=== PATIENT | female | born 1945 | race Caucasian/White ===

== ENCOUNTER → 2017-01-17 | Outpatient (CLI) | payer MEDICARE, BC, OTHER ==
[~2017-01-17] VITALS: Ht 167.6 cm; Wt 51.3 kg
[~2017-01-17] MED LIST: ASPI1TAB PO; LEVO88TA3 PO; LIDOCAINE 2% INJ 100 MG/5 ML SDV (FOR ANES.) As Ordered ONE; METO-207 PO; MULT1TAB18 PO; NS 1,000 ML IV SCH; OMEP40CA2 PO; PROPOFOL 200 MG/20 ML VIAL As Ordered ONE; TYLE325C PO; VITA-193 PO; VITA500055 PO; XANA0.5T PO; ZOCO20TA PO
--- NOTE | 2017-01-17 08:17 | ROOR ---
Patient Name: Brittney Rose Procedure Date: 01/17/2017 7:56 AM Date of : 1945 Age: 71 Room: [facility] Gender: Female Note Status: Finalized Procedure: Colonoscopy to Cecum Indications: Screening for colorectal malignant neoplasm, Last colonoscopy: 2009 Providers: Gualberto Hilario MD Referring MD: Jane Liang NP Requesting Provider: Medicines: Monitored Anesthesia Care Complications: No immediate complications. Procedure: Pre-Anesthesia Assessment: - The heart rate, respiratory rate, oxygen saturations, blood pressure, adequacy of pulmonary ventilation, and response to care were monitored throughout the procedure. The Colonoscope was introduced through the anus and advanced to the cecum, identified by appendiceal orifice and ileocecal valve. The colonoscopy was performed without difficulty. The patient tolerated the procedure well. The quality of the bowel preparation was fair. Findings: The perianal and digital rectal examinations were normal. Non-bleeding internal hemorrhoids were found during retroflexion. The hemorrhoids were small and Grade I (internal hemorrhoids that do not prolapse). Scattered small and large-mouthed diverticula were found in the recto-sigmoid colon, sigmoid colon and descending colon. The exam was otherwise without abnormality on direct and retroflexion views. Impression: - Preparation of the colon was fair. - Non-bleeding internal hemorrhoids. - Diverticulosis in the recto-sigmoid colon, in the sigmoid colon and in the descending colon. - The examination was otherwise normal on direct and retroflexion views. - No specimens collected. - The exam was otherwise normal to the cecum. Recommendation: - Patient has a contact number available for emergencies. The signs and symptoms of potential delayed complications were discussed with the patient. Return to normal activities tomorrow. Written discharge instructions were provided to the patient. - High fiber diet. - Discharge patient to home. - Continue present medications. - Repeat colonoscopy is not recommended for screening purposes. - Return to referring physician. - The findings and recommendations were discussed with the patient's family. Gualberto Hilario MD Gualberto Hilario MD 01/17/2017 8:16:48 AM This report has been signed electronically. Number of Addenda: 0 Note Initiated On: 01/17/2017 7:56 AM Estimated Blood Loss: Estimated blood loss: none.
[2017-01-17 08:40] VITALS: BP 154/72
== END | disposition home or self-care (01) ==
LOC: M OPP 07:20
PROVIDERS: ATTEND Internal Medicine Gastroenterology
DX: Z12.11 Encounter for screening for malignant neoplasm of colon (principal); K64.0 First degree hemorrhoids; K57.30 Diverticulosis of large intestine without perforation or abscess without bleeding; I10 Essential (primary) hypertension; E78.5 Hyperlipidemia, unspecified; E03.9 Hypothyroidism, unspecified; R12 Heartburn; M54.2 Cervicalgia; F41.9 Anxiety disorder, unspecified; Z87.891 Personal history of nicotine dependence; Z88.8 Allergy status to other drugs, medicaments and biological substances; Z79.82 Long term (current) use of aspirin; Z79.899 Other long term (current) drug therapy; Z92.3 Personal history of irradiation
CPT/HCPCS: 99156; 99157; G0121

== ENCOUNTER → 2017-01-30 | Outpatient (REF) | payer MEDICARE, OTHER ==
[~2017-01-30] MED LIST changes: -LIDOCAINE 2% INJ 100 MG/5 ML SDV (FOR ANES.) As Ordered ONE; -NS 1,000 ML IV SCH; -PROPOFOL 200 MG/20 ML VIAL As Ordered ONE
[2017-01-30 14:08] LABS: MEAN CORPUSCULAR HEMOGLOBIN 31.4 pg (27.0-33.0); MEAN CORPUSCULAR HGB CONC 33.3 g/dl (32.0-36.5); MEAN CORPUSCULAR VOLUME 94.3 fl (80.0-96.0); RED CELL DISTRIBUTION WIDTH 12.4 % (11.5-14.5); WHITE BLOOD COUNT 5.5 K/mm3 (4.0-10.0)
[2017-01-30 15:16] LABS: ALBUMIN 4.1 GM/DL (3.2-5.2); ALBUMIN/GLOBULIN RATIO 1.37 (1.00-1.93); ALKALINE PHOSPHATASE 70 U/L (45-117); ALT/SGPT 30 U/L (12-78); ANION GAP 9 MEQ/L (8-16); AST/SGOT 33 U/L (15-37); BILIRUBIN,TOTAL 0.3 MG/DL (0.2-1.0); BLOOD UREA NITROGEN 13 MG/DL (7-18); CARBON DIOXIDE LEVEL 28 MEQ/L (21-32); CHLORIDE LEVEL 102 MEQ/L (98-107); CREATININE FOR GFR 0.61 MG/DL (0.55-1.02); FREE T4 0.93 NG/DL (0.76-1.46); GLOMERULAR FILTRATION RATE > 60.0 (>39); GLUCOSE, FASTING 56 MG/DL (83-110); MAGNESIUM LEVEL 2.1 MG/DL (1.8-2.4); POTASSIUM SERUM 4.3 MEQ/L (3.5-5.1); SODIUM LEVEL 139 MEQ/L (136-145); TOTAL PROTEIN 7.1 GM/DL (6.4-8.2)
== END ==
LOC: M SFHCPLAZ 09:31
PROVIDERS: ATTEND Nurse Practitioner Family
DX: R00.2 Palpitations (principal); I10 Essential (primary) hypertension; E03.9 Hypothyroidism, unspecified; E55.9 Vitamin D deficiency, unspecified
CPT/HCPCS: 36415; 80053; 82306; 83735; 84439; 84443; 85027; 93005; G0463

== ENCOUNTER → 2017-03-14 | Outpatient (CLI) | payer MEDICARE, BC, OTHER ==
[2017-03-14 13:40] LABS: ANION GAP 7 MEQ/L (8-16); BLOOD UREA NITROGEN 12 MG/DL (7-18); CALCIUM LEVEL 8.3 MG/DL (8.8-10.2); CARBON DIOXIDE LEVEL 29 MEQ/L (21-32); CHLORIDE LEVEL 99 MEQ/L (98-107); CREATININE FOR GFR 0.63 MG/DL (0.55-1.02); GLOMERULAR FILTRATION RATE > 60.0 (>39); GLUCOSE, FASTING 102 MG/DL (83-110); POTASSIUM SERUM 4.2 MEQ/L (3.5-5.1); SODIUM LEVEL 135 MEQ/L (136-145)
== END ==
LOC: M SMT 10:27
PROVIDERS: ATTEND Nurse Practitioner Family
DX: I10 Essential (primary) hypertension (principal)

== ENCOUNTER → 2017-07-05 | Outpatient (CLI) | payer MEDICARE, BC ==
[~2017-07-05] MED LIST changes: -METO-207 PO; +METO1TAB7 PO
--- NOTE | 2017-07-05 11:00 | REPMRS ---
Patient History The patient states she had a clinical breast exam in 07/05 Patient is postmenopausal. Family history of breast cancer in 3 maternal aunts at age 50 or over. Took estrogen for 3 years. Digital Woman Screen Mammo: July 05, 2017 - Exam #: [id number] Bilateral CC and MLO view(s) were taken. Technologist: Gabriella Myrick, Technologist Prior study comparison: June 27, 2016, digital woman screen mammo performed at [facility]. July 12, 2015, digital woman screen mammo performed at [facility] to [facility]. FINDINGS: There are scattered fibroglandular densities. There has been no change in the appearance of the mammogram from the prior studies. There is a mild amount of residual fibroglandular tissue which is fairly symmetric. There is no interval development of dominant mass, architectural distortion, or clustered microcalcification suggestive of malignancy. ASSESSMENT: BI-RADS/ACR category 1 mammogram. Negative. Recommendation Routine screening mammogram in 1 year (for women over age 40). This mammogram was interpreted with the aid of an FDA-approved computer-aided dectection system. Electronically Signed By: Dawson Plaza MD 07/05/17 1100
== END ==
LOC: M WHC 09:34
PROVIDERS: ATTEND Nurse Practitioner Family
DX: Z01.419 Encounter for gynecological examination (general) (routine) without abnormal findings (principal); Z12.31 Encounter for screening mammogram for malignant neoplasm of breast; Z78.0 Asymptomatic menopausal state; Z12.12 Encounter for screening for malignant neoplasm of rectum
CPT/HCPCS: 82270; G0101; G0202

== ENCOUNTER → 2017-08-14 | Outpatient (CLI) | payer MEDICARE, BC ==
[2017-08-14 14:13] LABS: ALBUMIN/GLOBULIN RATIO 1.29 (1.00-1.93); ALKALINE PHOSPHATASE 68 U/L (45-117); ALT/SGPT 33 U/L (12-78); ANION GAP 7 MEQ/L (8-16); AST/SGOT 25 U/L (15-37); BILIRUBIN,TOTAL 0.5 MG/DL (0.2-1.0); BLOOD UREA NITROGEN 10 MG/DL (7-18); CALCIUM LEVEL 9.3 MG/DL (8.8-10.2); CARBON DIOXIDE LEVEL 27 MEQ/L (21-32); CHLORIDE LEVEL 100 MEQ/L (98-107); CHOLESTEROL LEVEL 247 MG/DL (<200); CREATININE FOR GFR 0.59 MG/DL (0.55-1.02); FREE T4 0.96 NG/DL (0.76-1.46); GLOMERULAR FILTRATION RATE > 60.0 (>39); GLUCOSE, FASTING 106 MG/DL (83-110); POTASSIUM SERUM 4.9 MEQ/L (3.5-5.1); SODIUM LEVEL 134 MEQ/L (136-145); TOTAL PROTEIN 7.1 GM/DL (6.4-8.2); TRIGLYCERIDES LEVEL 52 MG/DL (<150)
== END ==
LOC: M SMT 09:48
PROVIDERS: ATTEND Nurse Practitioner Family
DX: E55.9 Vitamin D deficiency, unspecified (principal); E03.9 Hypothyroidism, unspecified; E78.2 Mixed hyperlipidemia; I10 Essential (primary) hypertension

== ENCOUNTER 2018-01-02 11:01 | Day surgery (SDC) | payer MEDICARE, BC, OTHER ==
[2018-01-02] MEDS ORDERED: NS 1,000 ML IV (11:30)
[2018-01-02] MEDS ORDERED: LIDOCAINE 2% INJ 100 MG/5 ML SDV (FOR ANES.) As Ordered (11:58)
[2018-01-02] MEDS ORDERED: PROPOFOL 200 MG/20 ML VIAL As Ordered (11:58)
== END 2018-01-02 12:40 | disposition home or self-care (01) ==
LOC: M OPP 11:01
DX: R12 Heartburn (principal); K44.9 Diaphragmatic hernia without obstruction or gangrene; I10 Essential (primary) hypertension; E78.5 Hyperlipidemia, unspecified; E03.9 Hypothyroidism, unspecified; E05.00 Thyrotoxicosis with diffuse goiter without thyrotoxic crisis or storm; K21.9 Gastro-esophageal reflux disease without esophagitis; M19.90 Unspecified osteoarthritis, unspecified site; M54.2 Cervicalgia; F41.9 Anxiety disorder, unspecified; Z92.3 Personal history of irradiation; Z87.891 Personal history of nicotine dependence; Z88.8 Allergy status to other drugs, medicaments and biological substances; Z79.82 Long term (current) use of aspirin; Z79.899 Other long term (current) drug therapy
CPT/HCPCS: 43239

== ENCOUNTER → 2018-01-05 | Outpatient (CLI) | payer MEDICARE, BC, OTHER | LOC: M RAD 10:57 | DX: M25.511 Pain in right shoulder (principal) | CPT/HCPCS: 73030 ==

== ENCOUNTER → 2018-02-21 | Outpatient (CLI) | payer MEDICARE, BC, OTHER ==
[2018-02-21 17:56] LABS: TOTAL 25(OH) VITAMIN D 39.5 NG/ML (30.0-100.0); VITAMIN B12 LEVEL 637 PG/ML
[2018-02-21 17:57] LABS: FOLATE > 24.0 NG/ML
[2018-02-21 18:16] LABS: ALBUMIN 4.3 GM/DL (3.2-5.2); ALKALINE PHOSPHATASE 77 U/L (45-117); ALT/SGPT 32 U/L (12-78); ANION GAP 7 MEQ/L (8-16); AST/SGOT 31 U/L (7-37); BILIRUBIN,TOTAL 0.4 MG/DL (0.2-1.0); BLOOD UREA NITROGEN 14 MG/DL (7-18); CALCIUM LEVEL 9.3 MG/DL (8.8-10.2); CARBON DIOXIDE LEVEL 31 MEQ/L (21-32); CHLORIDE LEVEL 101 MEQ/L (98-107); CREATININE FOR GFR 0.69 MG/DL (0.55-1.30); GLOMERULAR FILTRATION RATE > 60.0 (>39); GLUCOSE, FASTING 82 MG/DL (70-100); POTASSIUM SERUM 4.5 MEQ/L (3.5-5.1); SODIUM LEVEL 139 MEQ/L (136-145); TOTAL PROTEIN 7.6 GM/DL (6.4-8.2)
== END ==
LOC: M SMT 13:06
DX: I10 Essential (primary) hypertension (principal); E03.9 Hypothyroidism, unspecified; K21.9 Gastro-esophageal reflux disease without esophagitis; E55.9 Vitamin D deficiency, unspecified
CPT/HCPCS: 82746

== ENCOUNTER → 2018-04-17 | Outpatient (CLI) | payer MEDICARE, BC, OTHER ==
[2018-04-17 21:55] LABS: ALBUMIN 4.1 GM/DL (3.2-5.2); ALBUMIN/GLOBULIN RATIO 1.37 (1.00-1.93); ALKALINE PHOSPHATASE 63 U/L (45-117); ALT/SGPT 37 U/L (12-78); ANION GAP 5 MEQ/L (8-16); AST/SGOT 30 U/L (7-37); BILIRUBIN,TOTAL 0.4 MG/DL (0.2-1.0); BLOOD UREA NITROGEN 10 MG/DL (7-18); CALCIUM LEVEL 8.7 MG/DL (8.8-10.2); CARBON DIOXIDE LEVEL 30 MEQ/L (21-32); CHLORIDE LEVEL 103 MEQ/L (98-107); CHOLESTEROL LEVEL 241 MG/DL (<200); CHOLESTEROL RISK RATIO 2.025 (<5); CREATININE FOR GFR 0.59 MG/DL (0.55-1.30); FREE T4 0.96 NG/DL (0.76-1.46); GLOMERULAR FILTRATION RATE > 60.0 (>39); GLUCOSE, FASTING 91 MG/DL (70-100); HDL CHOLESTEROL 119 MG/DL (>40); LDL CHOLESTEROL 113.8 MG/DL (<100); NON-HDL-C 122 MG/DL; POTASSIUM SERUM 4.5 MEQ/L (3.5-5.1); SODIUM LEVEL 138 MEQ/L (136-145); TOTAL PROTEIN 7.1 GM/DL (6.4-8.2); TRIGLYCERIDES LEVEL 41 MG/DL (<150)
== END ==
LOC: M SMT 10:41
DX: I10 Essential (primary) hypertension (principal); E03.9 Hypothyroidism, unspecified; E78.2 Mixed hyperlipidemia
CPT/HCPCS: 84443

== ENCOUNTER → 2018-07-09 | Outpatient (CLI) | payer MEDICARE, BC | LOC: M WHC 10:06 | DX: Z12.31 Encounter for screening mammogram for malignant neoplasm of breast (principal); M85.80 Other specified disorders of bone density and structure, unspecified site; Z78.0 Asymptomatic menopausal state; Z92.23 Personal history of estrogen therapy | CPT/HCPCS: 77067 ==

== ENCOUNTER 2018-07-14 06:26 | Emergency (ER) | payer MEDICARE, BC, OTHER ==
[2018-07-14] MEDS: methylPREDNISolone INJ 125 MG/2 ML VIAL (J2930) IV (07:44)
[2018-07-14] MEDS: GABAPENTIN 100 MG CAP PO (07:44)
[2018-07-14 07:52] LABS: BASO % 0.4 % (0.0-1.0); EOS # 0.1 10^3/uL (0.0-0.50); EOS % 0.5 % (0.0-3.0); HEMATOCRIT 36.6 % (36.0-47.0); HEMOGLOBIN 12.6 g/dl (12.0-15.5); IMMATURE GRANULOCYTE % 0.3 % (0-3.0); LYMPH # 0.8 10^3/uL (1.5-4.5); LYMPH % 8.5 % (24.0-44.0); MEAN CORPUSCULAR HEMOGLOBIN 31.9 pg (27.0-33.0); MEAN CORPUSCULAR HGB CONC 34.4 g/dl (32.0-36.5); MEAN CORPUSCULAR VOLUME 92.7 fl (80.0-96.0); MONO # 1.1 10^3/uL (0.0-0.8); MONO % 11.2 % (0.0-5.0); NEUTROPHILS # 7.6 10^3/uL (1.8-7.7); NEUTROPHILS % 79.1 % (36.0-66.0); PLATELET COUNT, AUTOMATED 375 10^3/uL (150-450); RED BLOOD COUNT 3.95 10^6/uL (4.00-5.40); RED CELL DISTRIBUTION WIDTH 11.8 % (11.5-14.5); WHITE BLOOD COUNT 9.6 10^3/uL (4.0-10.0)
[2018-07-14 08:14] LABS: ANION GAP 7 MEQ/L (8-16); BLOOD UREA NITROGEN 10 MG/DL (7-18); C REACTIVE PROTEIN QUANTITATIV 5.16 MG/DL (0.00-0.30); CARBON DIOXIDE LEVEL 27 MEQ/L (21-32); CHLORIDE LEVEL 98 MEQ/L (98-107); CREATININE FOR GFR 0.55 MG/DL (0.55-1.30); GLOMERULAR FILTRATION RATE > 60.0 (>39); GLUCOSE, FASTING 132 MG/DL (70-100); POTASSIUM SERUM 3.9 MEQ/L (3.5-5.1); SODIUM LEVEL 132 MEQ/L (136-145)
[2018-07-14 08:37] LABS: ERYTHROCYTE SEDIMENTATION RATE 67 mm/hr (0-30)
[2018-07-16 14:22] LABS: IgG P18 AB Absent (.); IgG P23 AB Absent (.); IgG P28 AB Absent (.); IgG P30 AB Absent (.); IgG P39 AB Absent (.); IgG P41 AB Absent (.); IgG P45 AB Absent (.); IgG P58 AB Absent (.); IgG P66 AB Absent (.); IgG P93 AB Absent (.); IgM P23 AB Absent (.); IgM P39 AB Absent (.); IgM P41 AB Absent (.); LYME IgG WB INTERPRETATION Negative (.); LYME IgM WB INTERPRETATION Negative (.)
== END 2018-07-14 09:05 | disposition home or self-care (01) ==
LOC: M ED 06:26
DX: M54.17 Radiculopathy, lumbosacral region (principal); M48.07 Spinal stenosis, lumbosacral region; M25.551 Pain in right hip; M25.552 Pain in left hip; M51.36 Other intervertebral disc degeneration, lumbar region; I10 Essential (primary) hypertension; E07.9 Disorder of thyroid, unspecified; K21.9 Gastro-esophageal reflux disease without esophagitis; F41.9 Anxiety disorder, unspecified; Z88.8 Allergy status to other drugs, medicaments and biological substances; Z79.890 Hormone replacement therapy; Z79.82 Long term (current) use of aspirin; Z79.899 Other long term (current) drug therapy
CPT/HCPCS: J2930

== ENCOUNTER → 2018-08-27 | Outpatient (CLI) | payer MEDICARE, BC, OTHER ==
[2018-08-27 14:40] LABS: ALBUMIN 3.5 GM/DL (3.2-5.2); ALBUMIN/GLOBULIN RATIO 1.06 (1.00-1.93); ALKALINE PHOSPHATASE 83 U/L (45-117); ALT/SGPT 23 U/L (12-78); ANION GAP 7 MEQ/L (8-16); AST/SGOT 20 U/L (7-37); BILIRUBIN,TOTAL 0.4 MG/DL (0.2-1.0); BLOOD UREA NITROGEN 13 MG/DL (7-18); CALCIUM LEVEL 8.5 MG/DL (8.8-10.2); CARBON DIOXIDE LEVEL 28 MEQ/L (21-32); CHLORIDE LEVEL 97 MEQ/L (98-107); CREATININE FOR GFR 0.54 MG/DL (0.55-1.30); FREE T4 1.05 NG/DL (0.76-1.46); GLOMERULAR FILTRATION RATE > 60.0 (>39); GLUCOSE, FASTING 89 MG/DL (70-100); POTASSIUM SERUM 4.7 MEQ/L (3.5-5.1); SODIUM LEVEL 132 MEQ/L (136-145); TOTAL PROTEIN 6.8 GM/DL (6.4-8.2)
[2018-08-27 14:49] LABS: TOTAL 25(OH) VITAMIN D 40.8 NG/ML (30.0-100.0)
== END ==
LOC: M SMT 10:50
DX: I10 Essential (primary) hypertension (principal); E03.9 Hypothyroidism, unspecified; E55.9 Vitamin D deficiency, unspecified
CPT/HCPCS: 84443

== ENCOUNTER → 2018-08-29 | Outpatient (REF) | payer MEDICARE, OTHER ==
[2018-08-29 12:47] LABS: ANION GAP 10 MEQ/L (8-16); BLOOD UREA NITROGEN 12 MG/DL (7-18); CALCIUM LEVEL 8.9 MG/DL (8.8-10.2); CARBON DIOXIDE LEVEL 27 MEQ/L (21-32); CHLORIDE LEVEL 98 MEQ/L (98-107); CREATININE FOR GFR 0.51 MG/DL (0.55-1.30); GLOMERULAR FILTRATION RATE > 60.0 (>39); GLUCOSE, FASTING 91 MG/DL (70-100); POTASSIUM SERUM 4.7 MEQ/L (3.5-5.1); SODIUM LEVEL 135 MEQ/L (136-145)
== END ==
LOC: M SFHCPLAZ 10:09
DX: I10 Essential (primary) hypertension (principal)
CPT/HCPCS: 80048

== ENCOUNTER → 2019-03-03 | Outpatient (CLI) | payer MEDICARE, BC, OTHER ==
[~2019-03-03] MED LIST changes: -ASPI1TAB PO; +ASPI81TA26 PO; +ESTR1CRE VA; +GABA-1171 PO; +PRED20TA PO
[2019-03-03 13:40] LABS: ALBUMIN 4.2 GM/DL (3.2-5.2); ALT/SGPT 29 U/L (12-78); BILIRUBIN,TOTAL 0.4 MG/DL (0.2-1.0); BLOOD UREA NITROGEN 9 MG/DL (7-18); CALCIUM LEVEL 9.1 MG/DL (8.8-10.2); CARBON DIOXIDE LEVEL 29 MEQ/L (21-32); CHLORIDE LEVEL 97 MEQ/L (98-107); CHOLESTEROL LEVEL 217 MG/DL (<200); CHOLESTEROL RISK RATIO 1.903 (<5); CREATININE FOR GFR 0.55 MG/DL (0.55-1.30); FREE T4 1.09 NG/DL (0.76-1.46); GLOMERULAR FILTRATION RATE > 60.0 (>39); GLUCOSE, FASTING 106 MG/DL (70-100); HDL CHOLESTEROL 114 MG/DL (>40); LDL CHOLESTEROL 91 MG/DL (<100); NON-HDL-C 103 MG/DL; POTASSIUM SERUM 4.6 MEQ/L (3.5-5.1); SODIUM LEVEL 131 MEQ/L (136-145); TOTAL 25(OH) VITAMIN D 40.1 NG/ML (30.0-100.0); TOTAL PROTEIN 7.2 GM/DL (6.4-8.2); TRIGLYCERIDES LEVEL 59 MG/DL (<150)
== END ==
LOC: M SMT 08:48
PROVIDERS: ATTEND Nurse Practitioner Family
DX: I10 Essential (primary) hypertension (principal); E03.9 Hypothyroidism, unspecified; E78.2 Mixed hyperlipidemia; E55.9 Vitamin D deficiency, unspecified; Z79.82 Long term (current) use of aspirin

== ENCOUNTER → 2019-03-05 | Outpatient (REF) | payer MEDICARE, OTHER ==
[2019-03-05 12:52] LABS: BLOOD UREA NITROGEN 11 MG/DL (7-18); CALCIUM LEVEL 8.8 MG/DL (8.8-10.2); CARBON DIOXIDE LEVEL 27 MEQ/L (21-32); CHLORIDE LEVEL 99 MEQ/L (98-107); CREATININE FOR GFR 0.56 MG/DL (0.55-1.30); GLOMERULAR FILTRATION RATE > 60.0 (>39); GLUCOSE, FASTING 94 MG/DL (70-100); POTASSIUM SERUM 4.2 MEQ/L (3.5-5.1); SODIUM LEVEL 132 MEQ/L (136-145)
== END ==
LOC: M SFHCPLAZ 10:18
PROVIDERS: ATTEND Nurse Practitioner Family
DX: E87.1 Hypo-osmolality and hyponatremia (principal)
CPT/HCPCS: 36415; 80048; G0463

== ENCOUNTER → 2019-07-10 | Outpatient (CLI) | payer MEDICARE, BC ==
[~2019-07-10] MED LIST changes: +CYAN500T9 PO; -VITA-193 PO
--- NOTE | 2019-07-10 13:17 | REPMRS ---
Patient History The patient states she had a clinical breast exam in 06/2019. Patient is postmenopausal. Family history of breast cancer at age 50 or over in maternal aunt, breast cancer at age 50 or over in maternal aunt, breast cancer at age 50 or over in maternal aunt. Took estrogen for 10 years. Digital Woman Screen Mammo: July 10, 2019 - Exam #: [id number] Bilateral CC and MLO view(s) were taken. Technologist: Viki Stapleton, Technologist Prior study comparison: July 09, 2018, bilateral digital woman screen mammo performed at [facility]. July 05, 2017, digital woman screen mammo performed at [facility]. June 27, 2016, digital woman screen mammo performed at [facility]. FINDINGS: There are scattered fibroglandular densities. There has been no change in the appearance of the mammogram from the prior studies. There is a mild amount of scattered fibroglandular density which is fairly symmetric. There is no interval development of dominant mass, architectural distortion, or grouped microcalcification suggestive of malignancy. 3-D tomosynthesis shows no additional findings. Assessment: BI-RADS/ACR category 1 mammogram. Negative Mammogram. Recommendation Routine screening mammogram of both breasts in 1 year (for women over age 40). This patient's Lifetime Breast Cancer Risk is estimated at 3.1 %. This mammogram was interpreted with the aid of an FDA-approved computer-aided dectection system. Electronically Signed By: Jay Toro MD 07/10/19 1957
== END ==
LOC: M WHC 10:27
PROVIDERS: ATTEND Nurse Practitioner Family
DX: Z01.419 Encounter for gynecological examination (general) (routine) without abnormal findings (principal); Z12.31 Encounter for screening mammogram for malignant neoplasm of breast; Z78.0 Asymptomatic menopausal state; Z92.23 Personal history of estrogen therapy
CPT/HCPCS: 77063; 77067; G0101

== ENCOUNTER → 2019-07-18 | Outpatient (CLI) | payer MEDICARE, BC ==
[~2019-07-18] MED LIST changes: +GABA-845 PO; -OMEP40CA2 PO; +OMEP40CA97 PO
[2019-07-18 13:23] LABS: BLOOD UREA NITROGEN 15 MG/DL (7-18); CALCIUM LEVEL 8.8 MG/DL (8.8-10.2); CARBON DIOXIDE LEVEL 28 MEQ/L (21-32); CHLORIDE LEVEL 97 MEQ/L (98-107); CREATININE FOR GFR 0.58 MG/DL (0.55-1.30); FREE T4 0.78 NG/DL (0.76-1.46); GLOMERULAR FILTRATION RATE > 60.0 (>39); GLUCOSE, FASTING 89 MG/DL (70-100); POTASSIUM SERUM 4.3 MEQ/L (3.5-5.1); SODIUM LEVEL 132 MEQ/L (136-145)
== END ==
LOC: M SMT 09:38
PROVIDERS: ATTEND Nurse Practitioner Family
DX: E87.1 Hypo-osmolality and hyponatremia (principal); E03.9 Hypothyroidism, unspecified

== ENCOUNTER → 2019-09-24 | Outpatient (REF) | payer MEDICARE, OTHER ==
[~2019-09-24] MED LIST changes: -GABA-845 PO
[2019-09-24 12:28] LABS: BLOOD UREA NITROGEN 14 MG/DL (7-18); CALCIUM LEVEL 9.3 MG/DL (8.8-10.2); CARBON DIOXIDE LEVEL 31 MEQ/L (21-32); CHLORIDE LEVEL 100 MEQ/L (98-107); CREATININE FOR GFR 0.54 MG/DL (0.55-1.30); GLOMERULAR FILTRATION RATE > 60.0 (>39); GLUCOSE, FASTING 77 MG/DL (70-100); POTASSIUM SERUM 4.6 MEQ/L (3.5-5.1); SODIUM LEVEL 136 MEQ/L (136-145)
== END ==
LOC: M SFHCPLAZ 10:28
PROVIDERS: ATTEND Family Medicine
DX: Z01.818 Encounter for other preprocedural examination (principal); I10 Essential (primary) hypertension
CPT/HCPCS: 36415; 80048; 93005; G0463

== ENCOUNTER → 2019-10-27 | Outpatient (CLI) | payer MEDICARE, BC, OTHER ==
[2019-10-27 14:33] LABS: BLOOD UREA NITROGEN 14 MG/DL (7-18); CALCIUM LEVEL 8.7 MG/DL (8.8-10.2); CARBON DIOXIDE LEVEL 29 MEQ/L (21-32); CHLORIDE LEVEL 98 MEQ/L (98-107); CREATININE FOR GFR 0.57 MG/DL (0.55-1.30); FREE T4 0.96 NG/DL (0.76-1.46); GLOMERULAR FILTRATION RATE > 60.0 (>39); GLUCOSE, FASTING 106 MG/DL (70-100); SODIUM LEVEL 133 MEQ/L (136-145); TOTAL 25(OH) VITAMIN D 40.7 NG/ML (30.0-100.0)
== END ==
LOC: M PLALAB 11:16
PROVIDERS: ATTEND Nurse Practitioner Family
DX: E03.9 Hypothyroidism, unspecified (principal); E87.1 Hypo-osmolality and hyponatremia; E55.9 Vitamin D deficiency, unspecified

== ENCOUNTER 2019-11-05 12:29 | Emergency (ER) | payer MEDICARE, BC, OTHER ==
[~2019-11-05] VITALS: Ht 172.7 cm; Wt 52.4 kg
[2019-11-05] MEDS ORDERED: NS 1,000 ML IV SCH (12:47)
[2019-11-05] MEDS ORDERED: GABA-845 PO (12:52)
[2019-11-05] MEDS ORDERED: ASPIRIN 81 MG CHEW TABLET PO ONE (13:00)
[2019-11-05 13:02] LABS: BASO % 0.7 % (0.0-1.0); EOS # 0.1 10^3/uL (0.0-0.5); EOS % 0.9 % (0.0-3.0); HEMATOCRIT 39.1 % (36.0-47.0); HEMOGLOBIN 13.1 g/dl (12.0-15.5); LYMPH # 1.2 10^3/uL (1.5-5.0); LYMPH % 21.4 % (24.0-44.0); MEAN CORPUSCULAR HEMOGLOBIN 31.4 pg (27.0-33.0); MEAN CORPUSCULAR HGB CONC 33.5 g/dl (32.0-36.5); MEAN CORPUSCULAR VOLUME 93.8 fl (80.0-96.0); MONO # 0.5 10^3/uL (0.0-0.8); MONO % 8.7 % (0.0-5.0); NEUTROPHILS # 3.9 10^3/uL (1.5-8.5); NEUTROPHILS % 68.1 % (36.0-66.0); PLATELET COUNT, AUTOMATED 303 10^3/uL (150-450); RED BLOOD COUNT 4.17 10^6/uL (4.00-5.40); WHITE BLOOD COUNT 5.8 10^3/uL (4.0-10.0)
[2019-11-05] MEDS: NITROGLYCERIN 0.4 MG SUBL TABLET SL PRN ×3 (13:10→14:17)
[2019-11-05 13:12] LABS: INR 0.98; PROTHROMBIN TIME 12.7 SECONDS (11.8-14.0)
[2019-11-05 13:13] LABS: PARTIAL THROMBOPLASTIN TIME 38.7 SECONDS (25.0-38.4)
[2019-11-05 13:36] LABS: BLOOD UREA NITROGEN 14 MG/DL (7-18); CALCIUM LEVEL 9.1 MG/DL (8.8-10.2); CARBON DIOXIDE LEVEL 29 MEQ/L (21-32); CHLORIDE LEVEL 98 MEQ/L (98-107); CK-MB VALUE MASS 6.3 NG/ML (<3.6); CPK CREATINE PHOSPHOKINASE 209 U/L (26-192); CREATININE FOR GFR 0.69 MG/DL (0.55-1.30); GLOMERULAR FILTRATION RATE > 60.0 (>39); GLUCOSE, FASTING 211 MG/DL (70-100); MB/CK RELATIVE INDEX 3.01 (< OR =4); POTASSIUM SERUM 3.8 MEQ/L (3.5-5.1); SODIUM LEVEL 133 MEQ/L (136-145); TROPONIN I < 0.02 NG/ML (< 0.10)
[2019-11-05 13:39] LABS: ALBUMIN 3.8 GM/DL (3.2-5.2); ALT/SGPT 30 U/L (12-78); BILIRUBIN,DIRECT < 0.1 MG/DL (0.0-0.2); BILIRUBIN,TOTAL 0.3 MG/DL (0.2-1.0); LIPASE 119 U/L (73-393); TOTAL PROTEIN 7.2 GM/DL (6.4-8.2)
--- NOTE | 2019-11-05 14:15 | REP ---
Single view chest: 11/05/2019. Indication: Chest pain. Comparison: 11/14/2015. Findings: The lungs are clear. There is no pleural effusion or pneumothorax. The cardiomediastinal silhouette is unremarkable. Impression: No acute cardiopulmonary process. Electronically Signed by Manuel Ashley DO 11/05/2019 02:06 P
[2019-11-05 14:17] VITALS: BP 145/77
--- NOTE | 2019-11-05 15:43 | ECGEPIP ---
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
[2019-11-05 17:35] LABS: CPK CREATINE PHOSPHOKINASE 181 U/L (26-192); MB/CK RELATIVE INDEX 2.76 (< OR =4); TROPONIN I < 0.02 NG/ML (< 0.10)
--- NOTE | 2019-11-05 17:45 | ECGEPIP ---
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
[2019-11-05 18:07] VITALS: BP 164/79
== END 2019-11-05 18:13 | disposition home or self-care (01) ==
LOC: M ED 12:29
DX: R07.89 Other chest pain (principal); R00.0 Tachycardia, unspecified; I10 Essential (primary) hypertension; E78.5 Hyperlipidemia, unspecified; E07.9 Disorder of thyroid, unspecified; Z79.899 Other long term (current) drug therapy; Z88.8 Allergy status to other drugs, medicaments and biological substances

== ENCOUNTER → 2020-03-04 | Outpatient (REF) | payer MEDICARE, OTHER ==
[~2020-03-04] MED LIST changes: +GABA-845 PO
[2020-03-04 12:31] LABS: TOTAL 25(OH) VITAMIN D 39.3 NG/ML (30.0-100.0)
[2020-03-04 12:36] LABS: ALBUMIN 3.9 GM/DL (3.2-5.2); ALT/SGPT 35 U/L (12-78); BILIRUBIN,TOTAL 0.3 MG/DL (0.2-1.0); BLOOD UREA NITROGEN 14 MG/DL (7-18); CALCIUM LEVEL 9.2 MG/DL (8.8-10.2); CARBON DIOXIDE LEVEL 30 MEQ/L (21-32); CHLORIDE LEVEL 100 MEQ/L (98-107); CHOLESTEROL LEVEL 220 MG/DL (<200); CREATININE FOR GFR 0.58 MG/DL (0.55-1.30); FREE T4 1.05 NG/DL (0.76-1.46); GLOMERULAR FILTRATION RATE > 60.0 (>39); GLUCOSE, FASTING 90 MG/DL (70-100); HDL CHOLESTEROL 110 MG/DL (>40); LDL CHOLESTEROL 103 MG/DL (<100); NON-HDL-C 110 MG/DL; POTASSIUM SERUM 4.8 MEQ/L (3.5-5.1); SODIUM LEVEL 134 MEQ/L (136-145); TOTAL PROTEIN 7.2 GM/DL (6.4-8.2); TRIGLYCERIDES LEVEL 33 MG/DL (<150)
== END ==
LOC: M PLALAB 08:34
PROVIDERS: ATTEND Nurse Practitioner Family
DX: I10 Essential (primary) hypertension (principal); E03.9 Hypothyroidism, unspecified; E78.2 Mixed hyperlipidemia; K21.9 Gastro-esophageal reflux disease without esophagitis

== ENCOUNTER → 2020-06-14 | Outpatient (REF) | payer MEDICARE, OTHER ==
[~2020-06-14] MED LIST changes: +CYAN500T10 PO; -CYAN500T9 PO
[2020-08-20 08:02] LABS: GLUCOSE, FASTING SEE SEPARATE REPORT MG/DL (70-100)
== END ==
LOC: M SFHCPLAZ 10:53
PROVIDERS: ATTEND Nurse Practitioner Family
DX: E03.9 Hypothyroidism, unspecified (principal); E55.9 Vitamin D deficiency, unspecified; I10 Essential (primary) hypertension

== ENCOUNTER → 2020-08-17 | Outpatient (CLI) | payer MEDICARE, OTHER ==
[2020-08-17 18:35] LABS: ALBUMIN 3.3 GM/DL (3.2-5.2); ALT/SGPT 28 U/L (12-78); BILIRUBIN,TOTAL 0.2 MG/DL (0.2-1.0); BLOOD UREA NITROGEN 15 MG/DL (7-18); CALCIUM LEVEL 9.2 MG/DL (8.8-10.2); CARBON DIOXIDE LEVEL 27 MEQ/L (21-32); CHLORIDE LEVEL 103 MEQ/L (98-107); CREATININE FOR GFR 0.51 MG/DL (0.55-1.30); FREE T4 1.07 NG/DL (0.76-1.46); GLOMERULAR FILTRATION RATE > 60.0 (>39); GLUCOSE, FASTING 82 MG/DL (70-100); POTASSIUM SERUM 4.4 MEQ/L (3.5-5.1); SODIUM LEVEL 134 MEQ/L (136-145); TOTAL PROTEIN 7.3 GM/DL (6.4-8.2)
[2020-08-18 13:53] LABS: TOTAL 25(OH) VITAMIN D 40.6 NG/ML (30.0-100.0); VITAMIN B12 LEVEL 582 PG/ML (247-911)
[2020-08-18 14:02] LABS: FOLATE > 24.0 NG/ML (>5.4)
== END ==
LOC: M PLALAB 14:25
PROVIDERS: ATTEND Nurse Practitioner Family
DX: I10 Essential (primary) hypertension (principal); E89.0 Postprocedural hypothyroidism; I63.412 Cerebral infarction due to embolism of left middle cerebral artery; Z79.899 Other long term (current) drug therapy

== ENCOUNTER → 2020-09-28 | Outpatient (REF) | payer MEDICARE, OTHER ==
[2020-09-28 13:04] LABS: APPEARANCE, URINE HAZY (CLEAR); BACTERIA, URINE AUTO 2+ (NEGATIVE); BILIRUBIN, URINE AUTO NEGATIVE (NEGATIVE); BLOOD, URINE BLOOD 1+ (NEGATIVE); COLOR, URINE STRAW (YELLOW); GLUCOSE, URINE (UA) AUTO NEGATIVE (NEGATIVE); KETONE, URINE AUTO NEGATIVE (NEGATIVE); LEUKOCYTE ESTERASE, URINE AUTO 3+ (NEGATIVE); NITRITE, URINE AUTO NEGATIVE (NEGATIVE); PROTEIN, URINE AUTO NEGATIVE (NEGATIVE); RBC, URINE AUTO 3 /HPF (0-3); SPECIFIC GRAVITY URINE AUTO 1.002 (1.002-1.035); SQUAMOUS EPITHELIAL CELL UR AU 1 /HPF (0-6); UROBILINOGEN, URINE AUTO 0.2 mg/dL (0.0-2.0); WBC, URINE AUTO 111 /HPF (0-3)
== END ==
LOC: M LAB REF 12:22
PROVIDERS: ATTEND Obstetrics & Gynecology
DX: N30.01 Acute cystitis with hematuria (principal)

== ENCOUNTER → 2020-10-05 | Outpatient (CLI) | payer MEDICARE, BC, OTHER ==
--- NOTE | 2020-10-05 13:03 | REPVR ---
PROCEDURE INFORMATION: Exam: CT Head Without Contrast Exam date and time: 10/05/2020 12:42 PM Age: 74 years old Clinical indication: Screening exam; Additional info: Traumatic brain injury TECHNIQUE: Imaging protocol: Computed tomography of the head without contrast. Radiation optimization: All CT scans at this facility use at least one of these dose optimization techniques: automated exposure control; mA and/or kV adjustment per patient size (includes targeted exams where dose is matched to clinical indication); or iterative reconstruction. COMPARISON: No relevant prior studies available. FINDINGS: Brain: Predominantly isodense to hypodense right frontoparietal subdural hematoma measures up to 1.3 cm over the posterior right frontal lobe, image 21 series 203. There are focal/small hyperdense subdural hemorrhages anterior to right frontal lobe on image 18 of series 201. Hyperdense acute appearing the anterior left parafalcine subdural hemorrhage measures up to 0.4 cm in thickness on image 19 of series 201. Mixed predominantly isodense the partially hyperdense left frontoparietal subdural hematoma measures up to 1.0 cm in thickness on coronal image 17 of series 203. No midline shift. The brain demonstrates generalized volume loss and chronic small vessel ischemic change. There is a focal, chronic appearing left caudate lacunar infarct. Cerebral ventricles: The ventricles appear mildly enlarged in keeping with volume loss. Slight partial effacement of the right lateral ventricle. Bones/joints: No acute calvarial fracture seen. Paranasal sinuses: Visualized sinuses are unremarkable. No fluid levels. Mastoid air cells: Visualized mastoid air cells are well aerated. Orbital cavity: Prior right lens surgery. Soft tissues: Mild right parietal scalp soft tissue swelling. IMPRESSION: Bilateral frontoparietal subdural hematomas of variable age inclusive of small, hyperdense, acute appearing components. There is no contribution to significant intracranial mass effect. Electronically signed by: Viki Goode On 10/05/2020 13:03:37 PM
== END ==
LOC: M RAD 12:28
PROVIDERS: ATTEND Physician Assistant Medical
DX: I62.00 Nontraumatic subdural hemorrhage, unspecified (principal)

== ENCOUNTER → 2020-10-12 | Outpatient (CLI) | payer MEDICARE, BC ==
[~2020-10-12] MED LIST changes: -CYAN500T10 PO; +VITA500T37 PO
--- NOTE | 2020-10-12 12:35 | DEXAMM ---
INDICATION: Z78.0 MENOPAUSAL. COMPARISON: 07/09/2018 as well as other prior exams. TECHNIQUE: Bone density was measured using dual-energy x-ray absorptiometry (DEXA). FINDINGS: AP SPINE L1-L4 BMD 1.195 g/cm2 Young Adult T-Score 0.0 Age Matched Z-Score 1.7. LT FEMUR, TOTAL BMD 0.722 g/cm2 Young Adult T-Score -2.3 Age Matched Z-Score -0.6. LT NECK BMD 0.801 g/cm2 Young Adult T-Score -1.7 Age Matched Z-Score 0.2. RT FEMUR, TOTAL BMD 0.742 g/cm2 Young Adult T-Score -2.1 Age Matched Z-Score -0.4. RT NECK BMD 0.770 g/cm2 Young Adult T-Score -1.9 Age Matched Z-Score -0.1. IMPRESSION: There is normal bone density of the spine. There is low bone density of the left hip. There is low bone density of the right hip. The density of the spine has decreased 3.4% since the initial exam on 07/04/2006. The density of the spine decreased 3.2% since most recent exam on 07/09/2018. The density of the left hip has decreased 12.2% since initial exam on 07/04/2006. The density of the left hip has decreased 1.8% since most recent exam on 07/09/2018. The density of the right hip has decreased 17.9% since the initial exam on 07/04/2006. The density of the right hip has decreased 10.3% since the most recent exam on 07/09/2018. FOLLOW-UP: Recommendation for the next bone density exam: 2 years. <Electronically signed by Dawson Plaza > 10/12/20 [id number]
== END ==
LOC: M WHC 11:08
PROVIDERS: ATTEND Nurse Practitioner Family
DX: Z78.0 Asymptomatic menopausal state (principal)
CPT/HCPCS: 77080; G0463

== ENCOUNTER → 2020-10-20 | Outpatient (REF) | payer MEDICARE, OTHER ==
[~2020-10-20] MED LIST changes: +CYAN500T10 PO; -VITA500T37 PO
[2020-10-20 17:16] LABS: APPEARANCE, URINE CLEAR (CLEAR); BACTERIA, URINE AUTO 1+ (NEGATIVE); BILIRUBIN, URINE AUTO NEGATIVE (NEGATIVE); BLOOD, URINE BLOOD NEGATIVE (NEGATIVE); COLOR, URINE STRAW (YELLOW); GLUCOSE, URINE (UA) AUTO NEGATIVE (NEGATIVE); KETONE, URINE AUTO NEGATIVE (NEGATIVE); LEUKOCYTE ESTERASE, URINE AUTO TRACE (NEGATIVE); MUCUS, URINE SMALL (NEGATIVE); NITRITE, URINE AUTO NEGATIVE (NEGATIVE); PROTEIN, URINE AUTO NEGATIVE (NEGATIVE); RBC, URINE AUTO 1 /HPF (0-3); SPECIFIC GRAVITY URINE AUTO 1.002 (1.002-1.035); SQUAMOUS EPITHELIAL CELL UR AU 1 /HPF (0-6); UROBILINOGEN, URINE AUTO 0.2 mg/dL (0.0-2.0); WBC, URINE AUTO 9 /HPF (0-3)
== END ==
LOC: M LAB REF 16:43
PROVIDERS: ATTEND Obstetrics & Gynecology
DX: N30.01 Acute cystitis with hematuria (principal)

== ENCOUNTER → 2020-10-21 | Outpatient (REF) | payer MEDICARE, OTHER ==
[2020-10-21 17:33] LABS: HEMATOCRIT 37.6 % (36.0-47.0); MEAN CORPUSCULAR HEMOGLOBIN 29.9 pg (27.0-33.0); MEAN CORPUSCULAR HGB CONC 31.9 g/dl (32.0-36.5); MEAN CORPUSCULAR VOLUME 93.8 fl (80.0-96.0); PLATELET COUNT, AUTOMATED 397 10^3/uL (150-450); RED BLOOD COUNT 4.01 10^6/uL (4.00-5.40); WHITE BLOOD COUNT 5.5 10^3/uL (4.0-10.0)
[2020-10-21 19:31] LABS: ALBUMIN 3.8 GM/DL (3.2-5.2); ALT/SGPT 26 U/L (12-78); BILIRUBIN,TOTAL 0.2 MG/DL (0.2-1.0); BLOOD UREA NITROGEN 12 MG/DL (7-18); CALCIUM LEVEL 9.4 MG/DL (8.8-10.2); CARBON DIOXIDE LEVEL 29 MEQ/L (21-32); CHLORIDE LEVEL 102 MEQ/L (98-107); CREATININE FOR GFR 0.65 MG/DL (0.55-1.30); FREE T4 0.75 NG/DL (0.76-1.46); GLOMERULAR FILTRATION RATE > 60.0 (>39); GLUCOSE, FASTING 171 MG/DL (70-100); POTASSIUM SERUM 3.8 MEQ/L (3.5-5.1); SODIUM LEVEL 137 MEQ/L (136-145); TOTAL 25(OH) VITAMIN D 43.3 NG/ML (30.0-100.0); TOTAL PROTEIN 7.7 GM/DL (6.4-8.2)
== END ==
LOC: M SFHCPLAZ 13:43
PROVIDERS: ATTEND Nurse Practitioner Family
DX: E03.9 Hypothyroidism, unspecified (principal); I10 Essential (primary) hypertension; E55.9 Vitamin D deficiency, unspecified; Z86.73 Personal history of transient ischemic attack (TIA), and cerebral infarction without residual deficits

== ENCOUNTER → 2020-10-21 | Outpatient (CLI) | payer MEDICARE, OTHER ==
--- NOTE | 2020-10-21 15:39 | REPPI ---
INDICATION: CHEST WALL PAIN. COMPARISON: Portable examination of 11/05/2019 the latest prior TECHNIQUE: PA and lateral views FINDINGS: The superior mediastinal structures are midline. The heart is not enlarged. A few curvilinear densities are seen in the left lower lobe. There is a subtle patchy opacity in the right upper lobe representing a change from the prior exam. The pleural angles are sharp. The right clavicle is fractured the age of which cannot be determined by this exam. IMPRESSION: 1. New patchy right upper lobe opacity possibly representing acute pneumonia. Correlate clinically. 2. Likely left lower lobe subsegmental atelectatic changes as described above. 3. Age undetermined right clavicle fracture. <Electronically signed by Dhruv James > 10/21/20 [id number]
== END ==
LOC: M PLAIMG 13:46
PROVIDERS: ATTEND Nurse Practitioner Family
DX: R91.8 Other nonspecific abnormal finding of lung field (principal); R07.89 Other chest pain; E03.9 Hypothyroidism, unspecified; I10 Essential (primary) hypertension; E55.9 Vitamin D deficiency, unspecified; Z86.73 Personal history of transient ischemic attack (TIA), and cerebral infarction without residual deficits

== ENCOUNTER → 2020-10-25 | Outpatient (REF) | payer MEDICARE, OTHER ==
[2020-10-25 17:11] LABS: APPEARANCE, URINE CLEAR (CLEAR); BACTERIA, URINE AUTO 1+ (NEGATIVE); BILIRUBIN, URINE AUTO NEGATIVE (NEGATIVE); BLOOD, URINE BLOOD NEGATIVE (NEGATIVE); COLOR, URINE STRAW (YELLOW); GLUCOSE, URINE (UA) AUTO NEGATIVE (NEGATIVE); KETONE, URINE AUTO NEGATIVE (NEGATIVE); LEUKOCYTE ESTERASE, URINE AUTO 1+ (NEGATIVE); MUCUS, URINE SMALL (NEGATIVE); NITRITE, URINE AUTO NEGATIVE (NEGATIVE); PROTEIN, URINE AUTO NEGATIVE (NEGATIVE); RBC, URINE AUTO 1 /HPF (0-3); SPECIFIC GRAVITY URINE AUTO 1.002 (1.002-1.035); SQUAMOUS EPITHELIAL CELL UR AU 1 /HPF (0-6); UROBILINOGEN, URINE AUTO 0.2 mg/dL (0.0-2.0); WBC, URINE AUTO 4 /HPF (0-3)
== END ==
LOC: M LAB REF 16:38
PROVIDERS: ATTEND Obstetrics & Gynecology
DX: N30.01 Acute cystitis with hematuria (principal)

== ENCOUNTER → 2020-11-16 | Outpatient (CLI) | payer MEDICARE, OTHER ==
[2020-11-16 13:30] LABS: BASO % 0.7 % (0.0-1.0); EOS # 0.1 10^3/uL (0.0-0.5); EOS % 1.7 % (0.0-3.0); HEMATOCRIT 36.9 % (36.0-47.0); HEMOGLOBIN 11.7 g/dl (12.0-15.5); LYMPH # 1.4 10^3/uL (1.5-5.0); LYMPH % 24.2 % (24.0-44.0); MEAN CORPUSCULAR HEMOGLOBIN 28.7 pg (27.0-33.0); MEAN CORPUSCULAR HGB CONC 31.7 g/dl (32.0-36.5); MEAN CORPUSCULAR VOLUME 90.7 fl (80.0-96.0); MONO # 0.5 10^3/uL (0.0-0.8); MONO % 8.3 % (0.0-5.0); NEUTROPHILS # 3.8 10^3/uL (1.5-8.5); NEUTROPHILS % 64.8 % (36.0-66.0); PLATELET COUNT, AUTOMATED 351 10^3/uL (150-450); RED BLOOD COUNT 4.07 10^6/uL (4.00-5.40); WHITE BLOOD COUNT 5.9 10^3/uL (4.0-10.0)
--- NOTE | 2020-11-16 13:45 | REP ---
INDICATION: SWELLING OF LEFT LOWER EXTREMITY LABS 1ST US 2ND. COMPARISON: None. TECHNIQUE: Left lower extremity duplex venous scanning. FINDINGS: The deep veins are anechoic and fully compressible from the groin to the popliteal fossa in the left lower extremity. Color flow imaging is homogeneous. Spectral Doppler interrogation demonstrates intact respiratory variation in flow and normal manual augmentation of flow. There is no evidence of deep vein thrombosis. IMPRESSION: Negative left lower extremity duplex venous ultrasound. No evidence of deep vein thrombosis. <Electronically signed by Jay Toro > 11/16/20 [id number]
[2020-11-16 13:56] LABS: ALBUMIN 3.8 GM/DL (3.2-5.2); ALT/SGPT 30 U/L (12-78); BILIRUBIN,TOTAL 0.3 MG/DL (0.2-1.0); BLOOD UREA NITROGEN 12 MG/DL (7-18); C REACTIVE PROTEIN QUANTITATIV 0.34 MG/DL (0.00-0.30); CALCIUM LEVEL 9.1 MG/DL (8.8-10.2); CARBON DIOXIDE LEVEL 29 MEQ/L (21-32); CHLORIDE LEVEL 105 MEQ/L (98-107); CREATININE FOR GFR 0.61 MG/DL (0.55-1.30); GLOMERULAR FILTRATION RATE > 60.0 (>39); GLUCOSE, FASTING 89 MG/DL (70-100); NT-PRO BNP 102 PG/ML (<125); POTASSIUM SERUM 4.1 MEQ/L (3.5-5.1); SODIUM LEVEL 139 MEQ/L (136-145); TOTAL PROTEIN 7.8 GM/DL (6.4-8.2)
[2020-11-16 14:08] LABS: ERYTHROCYTE SEDIMENTATION RATE 43 mm/hr (0-30)
== END ==
LOC: M RAD 12:57
PROVIDERS: ATTEND Physician Assistant
DX: M79.89 Other specified soft tissue disorders (principal)

== ENCOUNTER → 2020-12-08 | Outpatient (CLI) | payer MEDICARE, BC, OTHER ==
[~2020-12-08] MED LIST changes: -CYAN500T10 PO; +VITA500T37 PO
--- NOTE | 2020-12-08 11:36 | REP ---
INDICATION: TRAUMATIC BRAIN INJURY. COMPARISON: Comparison CT study October 05, 2020.. TECHNIQUE: Helical scanning is acquired. 5 mm axial images were reformatted. Coronal MPR images were generated. FINDINGS: Bone window settings demonstrate intact bony calvarium. No skull fracture is seen. The visualized paranasal sinuses are clear. There is minimal vascular calcification in the distal internal carotid arteries. Digital ticket sales agent radiograph is unremarkable. Small bilateral subacute subdural hematomas are again visible in the bilateral frontal regions, right a little larger than left. These are unchanged in overall size. No acute hyperdense components are seen. The collections are slightly hyperdense relative to badillo matter. the right subdural hematoma measures 13 mm in thickness and the left measures 9 mm in greatest thickness. There is some generalized volume loss. No midline shift is seen. No parenchymal hemorrhage or encephalomalacia is appreciated. No other extra-axial collection is seen. IMPRESSION: Bilateral subacute subdural hematomas are again seen, right greater than left. No hyperdense acute component seen. No midline shift is observed.. <Electronically signed by Jay Toro > 12/08/20 [id number]
== END ==
LOC: M RAD 10:57
PROVIDERS: ATTEND Physician Assistant Medical
DX: S06.5X9D Traumatic subdural hemorrhage with loss of consciousness of unspecified duration, subsequent encounter (principal); G96.08 Other cranial cerebrospinal fluid leak; X58.XXXA Exposure to other specified factors, initial encounter; Y92.9 Unspecified place or not applicable

== ENCOUNTER → 2020-12-22 | Outpatient (CLI) | payer MEDICARE, BC ==
--- NOTE | 2020-12-22 11:20 | REPMRS ---
Patient History The patient states she had a clinical breast exam in 06/2020 Family history of breast cancer at age 50 or over in maternal aunt, breast cancer at age 50 or over in maternal aunt, breast cancer at age 50 or over in maternal aunt. Took estrogen for 10 years. Digital Woman Screen Mammo: December 22, 2020 - Exam #: [id number] Bilateral CC and MLO view(s) were taken. Technologist: Gabriella Myrick, Technologist Prior study comparison: July 10, 2019, bilateral digital woman screen mammo performed at [facility]. July 09, 2018, bilateral digital woman screen mammo performed at [facility]. July 05, 2017, digital woman screen mammo performed at [facility]. FINDINGS: The breast tissue is heterogeneously dense. This may lower the sensitivity of mammography. The Volpara volumetric breast density category is: C. There is a moderate amount of heterogeneously dense fibroglandular tissue which is fairly symmetric. There is no interval development of dominant mass, architectural distortion, or grouped microcalcification typical of malignancy. There has been no change in the appearance of the mammogram from the prior studies. 3-D tomosynthesis shows no additional findings. Assessment: BI-RADS/ACR category 1 mammogram. Negative Mammogram. Recommendation Routine screening mammogram of both breasts in 1 year (for women over age 40). This patient's [facility] Lifetime Breast Cancer RIsk is estimated at 2.7 %. This mammogram was interpreted with the aid of an FDA-approved computer-aided dectection system. Electronically Signed By: Jay Toro MD 12/22/20 [id number]
== END ==
LOC: M WHC 10:27
PROVIDERS: ATTEND Nurse Practitioner Family
DX: Z12.31 Encounter for screening mammogram for malignant neoplasm of breast (principal)

== ENCOUNTER → 2021-01-17 | Outpatient (REF) | payer MEDICARE, OTHER ==
[2021-01-17 14:40] LABS: ERYTHROCYTE SEDIMENTATION RATE 32 mm/hr (0-30)
[2021-01-17 14:48] LABS: BASO % 0.7 % (0.0-1.0); EOS # 0.1 10^3/uL (0.0-0.5); EOS % 1.2 % (0.0-3.0); HEMATOCRIT 36.2 % (36.0-47.0); HEMOGLOBIN 11.9 g/dl (12.0-15.5); LYMPH # 1.5 10^3/uL (1.5-5.0); MEAN CORPUSCULAR HEMOGLOBIN 30.1 pg (27.0-33.0); MEAN CORPUSCULAR HGB CONC 32.9 g/dl (32.0-36.5); MEAN CORPUSCULAR VOLUME 91.6 fl (80.0-96.0); MONO # 0.5 10^3/uL (0.0-0.8); MONO % 7.9 % (2.0-8.0); NEUTROPHILS # 3.8 10^3/uL (1.5-8.5); NEUTROPHILS % 64.9 % (36.0-66.0); PLATELET COUNT, AUTOMATED 278 10^3/uL (150-450); RED BLOOD COUNT 3.95 10^6/uL (4.00-5.40); WHITE BLOOD COUNT 5.8 10^3/uL (4.0-10.0)
[2021-01-17 15:05] LABS: BLOOD UREA NITROGEN 12 MG/DL (7-18); CALCIUM LEVEL 9.1 MG/DL (8.8-10.2); CARBON DIOXIDE LEVEL 30 MEQ/L (21-32); CHLORIDE LEVEL 101 MEQ/L (98-107); CREATININE FOR GFR 0.53 MG/DL (0.55-1.30); FREE T4 1.16 NG/DL (0.76-1.46); GLOMERULAR FILTRATION RATE > 60.0 (>39); GLUCOSE, FASTING 86 MG/DL (70-100); POTASSIUM SERUM 4.5 MEQ/L (3.5-5.1); SODIUM LEVEL 135 MEQ/L (136-145); THYROID STIMULATING HORMONE 0.936 uIU/ML (0.358-3.740); TOTAL 25(OH) VITAMIN D 55.7 NG/ML (30.0-100.0); URIC ACID 3.5 MG/DL (2.6-6.0)
== END ==
LOC: M PLALAB 11:48
PROVIDERS: ATTEND Nurse Practitioner Family
DX: M25.572 Pain in left ankle and joints of left foot (principal); E03.9 Hypothyroidism, unspecified; I10 Essential (primary) hypertension; E55.9 Vitamin D deficiency, unspecified

== ENCOUNTER → 2021-03-15 | Outpatient (CLI) | payer MEDICARE, BC, OTHER ==
[~2021-03-15] MED LIST changes: +PROHANCE 279.3MG/ML 15ML VIAL As Ordered ONE
[2021-03-15 11:23] LABS: BLOOD UREA NITROGEN 12 MG/DL (7-18); CREATININE FOR GFR 0.46 MG/DL (0.55-1.30); GLOMERULAR FILTRATION RATE > 60.0 (>39)
--- NOTE | 2021-03-15 11:44 | REPVR ---
PROCEDURE INFORMATION: Exam: CT Thoracic Spine Without Contrast Exam date and time: 03/15/2021 11:12 AM Age: 75 years old Clinical indication: Pain in thoracic spine; Additional info: Spondylosis w/o myelopathy or radiculopathy, MR also/[id number] TECHNIQUE: Imaging protocol: Computed tomography images of the thoracic spine without contrast. Radiation optimization: All CT scans at this facility use at least one of these dose optimization techniques: automated exposure control; mA and/or kV adjustment per patient size (includes targeted exams where dose is matched to clinical indication); or iterative reconstruction. COMPARISON: No relevant prior studies available. FINDINGS: Vertebrae: Bone mineralization is decreased, suggestive of osteopenia. There is no acute fracture. Alignment is anatomic. Discs/Spinal canal/Neural foramina: No significant spinal canal stenosis. Other bones/joints: Several old right-sided rib fractures are noted. A chronic right clavicular fracture is also present. Soft tissues: Unremarkable. IMPRESSION: No acute abnormality. Electronically signed by: Gwyn Chew On 03/15/2021 11:43:43 AM
--- NOTE | 2021-03-15 12:46 | REPVR ---
PROCEDURE INFORMATION: Exam: MR Thoracic Spine With Contrast Exam date and time: 03/15/2021 12:19 PM Age: 75 years old Clinical indication: Abnormal findings; Abnormal radiologic findings of thoracic; Patient HX: Prior mri at [facility] recommended post contrast imaging; Additional info: Spondylosis w/o myelopathy or radiculopathy, CT also/[id number] TECHNIQUE: Imaging protocol: Multiplanar magnetic resonance images of the thoracic spine with contrast. Contrast material: PROHANCE; Contrast volume: 9 ml; Contrast route: INTRAVENOUS (IV); COMPARISON: CT Spine,thoracic w/o contrast 03/15/2021 11:15 AM FINDINGS: Limitations: Evaluation is limited due to technique. Precontrast images and T2 weighted sequences were not performed. Vertebrae: There is an 11 mm enhancing lesion within the posterior right aspect of the T7 vertebral body. Minimal lucency in this area is identified on the preceding CT. This is nonspecific, but could represent an incidental hemangioma. A metastatic lesion is less likely but not excluded. There is no acute fracture. Spinal cord: No cord compression. Discs/Spinal canal/Neural foramina: No significant spinal canal stenosis. Soft tissues: There is a solid avidly enhancing mass in the left lateral paraspinous soft tissues at the T1-2 level, measuring approximately 2.6 x 2.3 x 1.9 cm. This does not appear to extend into the left T1-2 neural foramina. However, the mass does partially encase the medial left 1st and 2nd ribs. No definite osseous erosion of the ribs is identified. However, there may be mild enhancement of the ribs in this area, as well as mild enhancement of the superior left lateral aspect of the T2 vertebral body. IMPRESSION: 1. Evaluation is limited due to technique. Precontrast images and T2 weighted sequences were not performed. A complete thoracic spine MRI is recommended, including additional dedicated sequences of the cervicothoracic junction. 2. 2.6 cm avidly enhancing left paraspinous mass at T1-2. This is nonspecific, but could represent a nerve sheath tumor, malignancy, or metastatic lesion. 3. Nonspecific enhancing lesion in the T7 vertebral body Electronically signed by: Gwyn Chew On 03/15/2021 12:46:12 PM
== END ==
LOC: M LAB 10:42 → M RAD 10:42
PROVIDERS: ATTEND Physician Assistant
DX: M47.814 Spondylosis without myelopathy or radiculopathy, thoracic region (principal); Z87.81 Personal history of (healed) traumatic fracture
CPT/HCPCS: 36415; 72128; 72147; 82565; 84520; A9576

== ENCOUNTER → 2021-04-07 | Outpatient (CLI) | payer MEDICARE, BC, OTHER ==
[~2021-04-07] MED LIST changes: +GABA-283 PO; -GABA-845 PO; -PROHANCE 279.3MG/ML 15ML VIAL As Ordered ONE
--- NOTE | 2021-04-07 09:33 | REP ---
INDICATION: LBP, STENOSIS. COMPARISON: Comparison MRI study is from September 02, 2019.. TECHNIQUE: Sagittal and axial T1 and T2-weighted scans are acquired in the usual fashion with and without fat saturation. Sequences include spin echo, turbo spin-echo, and STIR imaging sequences. FINDINGS: Lumbar vertebral body heights are preserved. Alignment is normal. There is no evidence of spondylolysis or spondylolisthesis. Tip of the conus medullaris remains normal in position and appearance at L1-2. No extra vertebral abnormality is observed. Sagittal and axial images taken at the L1-2 disc level show no evidence of disc protrusion, central canal stenosis, or foraminal narrowing. At L2-L3, there is minimal diffuse disc bulging. This is unchanged indenting the ventral margin of the thecal sac. No central canal stenosis or foraminal narrowing is seen. At L3-4, there is diffuse disc bulging again noted. There is foraminal segment disc bulging as well producing mild neural foraminal encroachment bilaterally. There is mild central canal stenosis due to diffuse disc bulging and facet hypertrophy and developmentally short pedicles. This is felt to be unchanged. At L4-5, there is advanced degenerative disc narrowing and desiccation in the disc. There is diffuse disc bulging. There is mild central canal narrowing. Facet and ligamentum flavum hypertrophy contribute to this. Central canal narrowing appears less prominent than it did on the 02 September 2019 prior study. There is right-sided neural foraminal narrowing due to discogenic spurring and disc bulging in combination with facet hypertrophy. this is unchanged. At L5-S1, there is minimal diffuse disc bulging. Mild bilateral foraminal narrowing due to facet hypertrophy is present. Findings at L5-S1 are unchanged. Facet hypertrophy is present moderate in degree bilaterally. IMPRESSION: Diffuse degenerative spondylosis changes. Mild central canal stenosis at L4-5 actually a little less prominent than on the prior study. Mild central canal stenosis is seen at L3-4 unchanged. Multilevel neural foraminal narrowing as above felt to be unchanged as well. <Electronically signed by Jay Toro > 04/07/21 [id number]
== END ==
LOC: M PLARAD 07:55
PROVIDERS: ATTEND Physician Assistant
DX: M51.26 Other intervertebral disc displacement, lumbar region (principal); M47.816 Spondylosis without myelopathy or radiculopathy, lumbar region; M48.061 Spinal stenosis, lumbar region without neurogenic claudication

== ENCOUNTER → 2021-04-13 | Outpatient (CLI) | payer MEDICARE, OTHER ==
--- NOTE | 2021-04-14 00:22 | ECWPNPC ---
PATIENT NAME: RADHA EFRNANDEZ : 1945 GENDER: FEMALE VISIT DATE: 04/13/2021 DISCHARGE DATE: 04/13/21953 VISIT LOCKED DATE TIME: PHYSICIAN: JANN QUILES PHYSICIAN PAGER NO: ACTIVE RESOURCE: JANN QUILES REASON FOR APPOINTMENT 1. NECK/BACK HISTORY OF PRESENT ILLNESS GENERAL: 75-YEAR-OLD FEMALE BEING REFERRED BY [facility] TO EVALUATE CHRONIC PAIN. HISTORY OF A SERIOUS FALL INJURY IN JUNE 2020. SHE SUSTAINED A BRAIN BLEED AND WAS IN [facility] FOR 6 WEEKS. SUSTAINED MULTIPLE RIB FRACTURES. OVERALL SHE'S DOING VERY WELL. SHE IS WALKING EVERY DAY. DENIES COMPLAINTS OF SERIOUS PAIN. 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 IN THE PROCESS OF WEANING DOWN AND OFF OF CYMBALTA. INFORMED HER OF TREATMENT OPTIONS SHOULD HER PAIN BE OUT OF CONTROL AND SHE WILL CALL US FOR FOLLOW-UP IF NECESSARY. - - -. FALL RISK SCREENING: SCREENING FX RIBS JAW FROM FALL DOWN STAIRS 06/2020 . PAIN SCREENING: PATIENT HAS A COMPLAINT OF ACUTE OR CHRONIC PAIN :YES LOCATION OF PAIN:NECK, UPPER BACK, MID BACK, LOW BACK INTENSITY OF PAIN (SCALE OF 1 TO 10):4 WHAT DOES YOUR PAIN FEEL LIKE:SORE DURATION:ONLY WITH SPECIFIC ACTIVITIES PAIN IS INCREASED BY:ACTIVITIES PAIN IS DECREASED BY:USE OF PAIN MEDICATIONS NURSING NOTE: - - -. PAIN CENTER INTAKE QUESTIONS: DO YOU HAVE A HISTORY OF MRSA? :NO DO YOU TAKE A BLOOD THINNERS? :NO DO YOU HAVE ANY BLEEDING DISORDERS? :NO ANY NEW NUMBNESS OR WEAKNESS IN YOUR LEGS OR ARMS? :NO ANY PACEMAKER,DEFIBRILLATOR, OR DORSAL COLUMN STIMULATOR? :NO DO YOU HAVE ANY RASHES OR OPEN SORES? :NO ARE YOU ALLERGIC TO IV DYE? :NO ARE YOU DIABETIC? :NO ANY NEW PROBLEMS WITH YOUR MEDICATIONS? :NO HAVE YOU RECEIVED A VACCINE IN THE PAST 30 DAYS? :NO DO YOU PLAN TO RECEIVE A VACCINE IN THE NEXT 21 DAYS? :NO DO YOU NEED ANY PRESCRIPTION? :NO DO YOU TAKE ANY IMMUNOSUPPRESSIVE MEDICATIONS? :NO IS THERE A CHANCE YOU COULD BE ? :NO ARE YOU BREAST FEEDING? :NO CURRENT MEDICATIONS TAKING ZOCOR 20 MG TABLET 1 TABLET IN THE EVENING ORALLY ONCE A DAY TAKING DULOXETINE HCL 40 MG CAPSULE DELAYED RELEASE PARTICLES 2 CAPSULE ORALLY ONCE DAILY TAKING VITAMIN D 25 MCG (1000 UT) TABLET 1 TABLET ORALLY ONCE A DAY TAKING DULOXETINE HCL 60 MG CAPSULE DELAYED RELEASE PARTICLES 1 CAPSULE ORALLY ONCE A DAY TAKING DULOXETINE HCL 20 MG CAPSULE DELAYED RELEASE PARTICLES 1 CAPSULE ORALLY TWICE A DAY TAKING XANAX 0.25 MG TABLET 1 TABLET ORALLY ONCE A DAY NOT-TAKING GABAPENTIN 600 MG TABLET 1 TABLET ORALLY ONCE A DAY NOT-TAKING TIZANIDINE HCL 4 MG TABLET 1 TABLET NEEDED ORALLY THREE TIMES A DAY NOT-TAKING MELOXICAM 7.5 MG TABLET 1 TABLET ORALLY ONCE A DAY NOT-TAKING ESTRADIOL 10 MCG TABLET INSERT [address] OF VAGINA THREE TIMES WEEKLY VAGINAL NOT-TAKING OMEPRAZOLE 40 MG CAPSULE DELAYED RELEASE 1 CAPSULE ORALLY ONCE DAILY NEEDED NOT-TAKING ESTRACE 0.1 MG/GM CREAM 1 GM VAGINAL AND VULVA TWICE A WEEK NOT-TAKING LEVOTHYROXINE SODIUM 100 MCG TABLET 1 TABLET IN THE MORNING ON AN EMPTY STOMACH ORALLY DAILY NOT-TAKING VITAMIN D3 5000 UNIT CAPSULE 1 CAPSULE WITH MEAL ORALLY ONCE A DAY NOT-TAKING ENSURE - LIQUID DIRECTED ORALLY NOT-TAKING XANAX 0.5 MG TABLET 1 TAB ORALLY TWICE A DAY NEEDED MDD 2 NOT-TAKING METOPROLOL TARTRATE 50 MG TABLET 1 TABLET WITH FOOD ORALLY TWICE A DAY NOT-TAKING SIMVASTATIN 20 MG TABLET 1 TABLET IN THE EVENING ORALLY ONCE A DAY NOT-TAKING FOSAMAX 70 MG TABLET 1 TABLET 30 MINUTES BEFORE THE FIRST FOOD, BEVERAGE OR MEDICINE OF THE DAY WITH PLAIN WATER ORALLY WEEKLY MEDICATION LIST REVIEWED AND RECONCILED WITH THE PATIENT PAST MEDICAL HISTORY GRAVES DISEASE HYPERLIPIDEMIA HYPERTENSION ARTHRITIS ANXIETY OSTEOPENIA - DEXA 07/04 - FRAX 9.3%, 1.6% DEXA 2019 FRX 23/7.7 HYPOTHYROIDISM HYPOGLYCEMIA ROSACEA - DERMATOLOGY SCALP DERMATITIS CONSTIPATION, UNSPECIFIED CONSTIPATION TYPE DRY EYES - DR ARROYO SPINAL STENOSIS - NCOG FX RIBS JAW FROM FALL DOWN STAIRS 06/2020 CVA 06/2020 ALLERGIES WELLBUTRIN: RASH - ALLERGY REMERON: HEAVY MUSCLES, HANGOVER FEELING - SIDE EFFECTS GABAPENTIN: MAKES LEGS WEAK - SIDE EFFECTS SURGICAL HISTORY HYSTERECTOMY, TOTAL WITH BSO (AGE 34) 1979 THYROIDECTOMY 07-21 EYES 1-03 CARDIAC CATHETERIZATION COLONOSCOPY, HYPERTROPHY OF ANAL PAPILLAE - DR. LIM (REPEAT 3-5YRS) 10/28 RIGHT EYE LID LIFT 07-12-16 COLONOSCOPY, DIVERTICULOSIS - DARIEN 01-17-[address] MILD INFLAMMATION [address] LEDEZMA 01/02/18 RIGHT EYE CATARACT REMOVAL 03/07/18 RIGHT EYE SURGERY GRAFT 10/09/19 FAMILY HISTORY FATHER: 54 YRS MOTHER: 89 YRS, DEMENTIA, CVA @ 81. +OSTEOPOROSIS, NO FX SIBLINGS: ALIVE, THYROID DISEASE, PSORIASIS DAUGHTER(S): ALIVE MATERNAL AUNT: AUTO IMMUNE DISORDER 1 SISTER(S) - HEALTHY. 3DAUGHTER(S) - HEALTHY. IDENTICAL TWIN SISTER, HEALTHY. BROTHER - SUICIDE. DENIES FAMILY HX OF COLON OR OVARIAN CANCER. 3 MATERNAL AUNTS HAD BREAST CANCER. SOCIAL HISTORY GENERAL: TOBACCO USE ARE YOU A:FORMER SMOKER 22 YEARS OLD HOW LONG HAS IT BEEN SINCE YOU LAST SMOKED?> 10 YEARS LATEX QUESTIONNAIRE LATEX ALLERGY : HAVE YOU EVER DEVELOPED ANY TYPE OF REACTION AFTER HANDLING LATEX PRODUCTS SUCH RUBBER GLOVES, CONDOMS, DIAPHRAGMS, BALLOONS, SOCKS, OR UNDERWEAR?NO LATEX ALLERGY : HAVE YOU EVER DEVELOPED ANY TYPE OF REACTION DURING OR AFTER DENTAL APPOINTMENT, VAGINAL/RECTAL EXAMINATION, SURGICAL PROCEDURE, OR ANY OTHER EXPOSURE?NO LATEX RISK : HAVE YOU EVER HAD ANY DIFFICULTY BREATHING OR HIVES AFTER EATING OR HANDLING ANY FRUITS, OR VEGETABLES; SUCH KIWI, BANANAS, STONE FRUITS, OR CHESTNUTSNO LATEX RISK : DO YOU HAVE A PREVIOUS PERSONAL HISTORY OF MORE THAN NINE SURGERIES, SPINA BIFIDA, OR REPEATED CATHERIZATIONS? NO LATEX RISK : ARE YOU FREQUENTLY EXPOSED TO LATEX PRODUCTS IN YOUR OCCUPATION?NO DATE ASKED : 04/13/2021 ALCOHOL USE: YES, BEER EVERY DAY. LUNG CANCER SCREENING SMOKING STATUS:FORMER SMOKER IS THE PATIENT BETWEEN THE AGE OF 56 AND 78?YES HAVE YOU QUIT SMOKING WITHIN THE PAST 15 YEARS?NO QUIT 17YRS AGO ALCOHOL SCREENING DID YOU HAVE A DRINK CONTAINING ALCOHOL IN THE PAST YEAR?YES HOW OFTEN DID YOU HAVE SIX OR MORE DRINKS ON ONE OCCASION IN THE PAST YEAR?NEVER (0 POINTS) HOW MANY DRINKS DID YOU HAVE ON A TYPICAL DAY WHEN YOU WERE DRINKING IN THE PAST YEAR?3 OR 4 (1 POINT) HOW OFTEN DID YOU HAVE A DRINK CONTAINING ALCOHOL IN THE PAST YEAR?FOUR OR MORE TIMES A WEEK (4 POINTS) POINTS5 INTERPRETATIONPOSITIVE RECREATIONAL DRUG USE DRUG USE?NO CAFFEINE 3 COFFEES DAILY HALF CAFFEINE. SEXUAL HX HAD SEX IN THE LAST 12 MONTHS (VAGINAL, ORAL, OR ANAL)?NO HIV / HEP-C SCREENING HIV TEST OFFERED TO PATIENT: N/A HEP-C TEST OFFERED TO PATIENT: N/A SCIENTOLOGY [id number] NONE LANGUAGE LANGUAGES SPOKEN:JORDANIAN EDUCATION LEVEL OF EDUCATION:NOT FINISHED COLLEGE LEARNING BARRIERS / SPECIAL NEEDS CHANGE FROM LAST VISIT?NO BARRIERS TO LEARNING?NO HEARING IMPAIRED?NO VISION IMPAIRED?YES :CORRECTIVE LENSES COGNITIVELY IMPAIRED?NO READINESS TO LEARN?YES LEARNING PREFERENCES?YES :TAPES/VIDEOS, BOOKLETS, HANDOUTS LEARNING CAPABILITIES PRESENT?YES EMOTIONAL BARRIERS?NO SPECIAL DEVICES?NO METAL MOVER NEEDED?NO DOMESTIC VIOLENCE NONE. 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 DIET: WELL BALANCED DIET, 2 YOGURTS AND MILK DAILY, NO ADDED SALT, LOW FAT, LOW CHOLESTEROL. EXERCISE: WALKS ONCE OR TWICE DAILY VIGOROUSLY, GOLFS. MARITAL STATUS: 2013. OTHERS AT HOME: NONE. HOSPITALIZATION/MAJOR DIAGNOSTIC PROCEDURE FELL DOWN STAIRS FRACTURED ANY BONES 07/08 REVIEW OF SYSTEMS CONSTITUTIONAL: ANY RECENT FEVER NO . CHILLS NO . WEIGHT CHANGE OF UNKNOWN REASONS NO . GASTROENTEROLOGY: NEW UNEXPLAINABLE CHANGES IN BOWEL CONTROL NO . CONSTIPATION NO . GENITOURINARY: ANY NEW CHANGE IN BLADDER CONTROL? NO . NEUROLOGY: NEW ONSET DIZZINESS OR NEUROLOGICAL CHANGES NOT MENTIONED NO . NEW NUMBNESS OR PAIN PATTERNS NOT MENTIONED AND PERTINENT TO TODAY'S VISIT NO . CARDIOLOGY: NEW CHEST PRESSURE NO . PATIENT DENIES NO . RESPIRATORY: UNEXPLAINABLE COUGH NO . NEW SHORTNESS OF BREATH NO . VITAL SIGNS WT 106.6 LBS, HT 65 IN, BMI 17.74 INDEX, BP 167/79 MM HG, HR 76 /MIN, RR 18 /MIN, TEMP 98 F, OXYGEN SAT % 96%, SAFE IN ENV? (Y/N) YEST.ALLA DUVAL. EXAMINATION GENERAL EXAMINATION: GENERALNO ACUTE DISTRESS, WELL NOURISHED AND HYDRATED. PSYCHAPPROPRIATE MOOD AND AFFECT . NECK:NO LYMPHADENOPATHY, SUPPLE. LUNGS:CLEAR TO AUSCULTATION BILATERALLY, NO WHEEZES, RHONCHI, RALES. HEART:NO MURMURS, REGULAR RATE AND RHYTHM. MUSCULOSKELETAL: MUSCLE STRENGTH TESTING 5/5 BILATERAL UPPER/LOWER EXTREMITIES. LUMBAR:NONTENDER WITH PALPATION . THORACIC SPINE:NONTENDER WITH PALPATION . CERVICAL:NONTENDER WITH PALPATION . ASSESSMENTS ARTHROPATHY - M12.9 (PRIMARY) TREATMENT ARTHROPATHY NOTES: ADVISED TO CONTINUE WALKING DAILY AND CONSERVATIVE CARE FOR CHRONIC PAIN. PATIENT WILL CALL US IF HER PAIN GETS OUT OF CONTROL FOR REEVALUATION. PROCEDURE CODES FA211 ESTABILISHED PATIENT [facility] CHARGE DISPOSITION & COMMUNICATION FOLLOW UP PATIENT WILL CALL (REASON: BACK PAIN) ELECTRONICALLY SIGNED BY CASSANDRA BARRIOS ON 04/13/2021 AT 01:46 PM EDT DISCLAIMER : THIS IS A VISIT SUMMARY EXTRACTED FROM THE [employer] CHART. IT IS NOT A COPY OF THE [employer] PROGRESS NOTE. WILLIAM
== END ==
LOC: M PAIN 09:00
PROVIDERS: ATTEND Nurse Practitioner Family
DX: M12.9 Arthropathy, unspecified (principal); E78.5 Hyperlipidemia, unspecified; I10 Essential (primary) hypertension; F41.9 Anxiety disorder, unspecified; E03.9 Hypothyroidism, unspecified; K59.00 Constipation, unspecified; E05.00 Thyrotoxicosis with diffuse goiter without thyrotoxic crisis or storm; M85.80 Other specified disorders of bone density and structure, unspecified site; Z87.891 Personal history of nicotine dependence; Z79.899 Other long term (current) drug therapy; Z88.8 Allergy status to other drugs, medicaments and biological substances

== ENCOUNTER 2021-04-22 15:54 | Emergency (ER) | payer MEDICARE, BC, OTHER ==
[~2021-04-22] VITALS: Ht 167.6 cm; Wt 47.8 kg
--- NOTE | 2021-04-22 16:38 | REPVR ---
PROCEDURE INFORMATION: Exam: CT Head Without Contrast Exam date and time: 04/22/2021 4:17 PM Age: 75 years old Clinical indication: Other: CVA; Additional info: CVA - nursing interventions must not delay CT TECHNIQUE: Imaging protocol: Computed tomography of the head without contrast. Radiation optimization: All CT scans at this facility use at least one of these dose optimization techniques: automated exposure control; mA and/or kV adjustment per patient size (includes targeted exams where dose is matched to clinical indication); or iterative reconstruction. COMPARISON: CT Head without contrast 04/22/2021 11:32 AM FINDINGS: Brain: No intracranial mass, mass effect or midline shift. No interval change in right frontoparietal mixed density subdural hygroma with subtle hyperdense component suggesting small volume of acute blood unchanged. Contralateral small left frontotemporal low-density subdural hygroma, unchangedNo CT evidence of acute cortical infarct. Ventricles, cisterns, and sulci are normal in size for age. Paranasal sinuses: Imaged paranasal sinuses are normally aerated. Mastoid air cells: Mastoid air cells and middle ear structures are normally aerated. Orbital cavity: Imaged orbits are unremarkable. Bones/joints: No calvarial fracture or destructive process. Soft tissues: No focal extracranial soft tissue swelling. IMPRESSION: 1. No interval change since the CT earlier today, with a mixed density right frontal subdural hygroma containing a small volume of it appears to be acute blood with no increased mass effect. No change in left frontal low-density subdural hygroma. No new hemorrhage 2. No new acute or concerning focal intracranial abnormality. Electronically signed by: Fernando Mobley On 04/22/2021 16:38:24 PM
[2021-04-22] MEDS ORDERED: LABETALOL 100MG/20ML VIAL IV STA (16:55)
[2021-04-22 17:08] VITALS: BP 180/88
[2021-04-22 17:08] LABS: HEMATOCRIT 39.9 % (36.0-47.0); HEMOGLOBIN 13.5 g/dl (12.0-15.5); MEAN CORPUSCULAR HGB CONC 33.8 g/dl (32.0-36.5); MEAN CORPUSCULAR VOLUME 91.5 fl (80.0-96.0); PLATELET COUNT, AUTOMATED 324 10^3/uL (150-450); RED BLOOD COUNT 4.36 10^6/uL (4.00-5.40); WHITE BLOOD COUNT 5.6 10^3/uL (4.0-10.0)
[2021-04-22] MEDS ORDERED: ALPRAZolam 0.5 MG TAB PO ONE (17:10)
[2021-04-22 17:29] LABS: BLOOD UREA NITROGEN 12 MG/DL (7-18); CALCIUM LEVEL 10.3 MG/DL (8.8-10.2); CARBON DIOXIDE LEVEL 28 MEQ/L (21-32); CHLORIDE LEVEL 100 MEQ/L (98-107); GLOMERULAR FILTRATION RATE > 60.0 (>39); GLUCOSE, FASTING 105 MG/DL (70-100); SODIUM LEVEL 137 MEQ/L (136-145)
[2021-04-22] MEDS ORDERED: levETIRAcetam INJection 500 MG in D5W MINI-BAG PLUS 100 ML IV ONE (17:50)
[2021-04-22 18:08] LABS: RSV AMPLIFICATION NEGATIVE (NEGATIVE)
[2021-04-22 18:39] VITALS: BP 156/80
== END 2021-04-22 18:52 | disposition short-term general hospital (02) ==
LOC: M ED 15:54
DX: I62.00 Nontraumatic subdural hemorrhage, unspecified (principal); S06.5X9D Traumatic subdural hemorrhage with loss of consciousness of unspecified duration, subsequent encounter; G96.08 Other cranial cerebrospinal fluid leak; X58.XXXD Exposure to other specified factors, subsequent encounter; Y92.9 Unspecified place or not applicable; I10 Essential (primary) hypertension; E78.5 Hyperlipidemia, unspecified; Z88.6 Allergy status to analgesic agent; Z88.8 Allergy status to other drugs, medicaments and biological substances
CPT/HCPCS: 36415; 70450; 80048; 85027; 87631; 99285; J1953

== ENCOUNTER → 2021-04-22 | Outpatient (CLI) | payer MEDICARE, BC, OTHER ==
--- NOTE | 2021-04-22 12:00 | REPVR ---
PROCEDURE INFORMATION: Exam: CT Head Without Contrast Exam date and time: 04/22/2021 11:30 AM Age: 75 years old Clinical indication: Traumatic subdural hygroma w/ loc TECHNIQUE: Imaging protocol: Computed tomography of the head without contrast. Radiation optimization: All CT scans at this facility use at least one of these dose optimization techniques: automated exposure control; mA and/or kV adjustment per patient size (includes targeted exams where dose is matched to clinical indication); or iterative reconstruction. 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 There is minimal new high density within the right-sided collection compared to December 08, 2020 concerning for acute blood products. Cerebral ventricles: No ventriculomegaly. Paranasal sinuses: Visualized sinuses are unremarkable. No fluid levels. Mastoid air cells: Visualized mastoid air cells are well aerated. Bones/joints: Unremarkable. No acute fracture. Soft tissues: Unremarkable. 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 There is minimal new high density within the right-sided collection compared to December 08, 2020 concerning for acute blood products in this post trauma patient. Followup imaging is recommended. Electronically signed by: Wilber Brink On 04/22/2021 12:00:38 PM
== END ==
LOC: M RAD 11:22
PROVIDERS: ATTEND Physician Assistant Medical
DX: S06.5X9D Traumatic subdural hemorrhage with loss of consciousness of unspecified duration, subsequent encounter (principal); G96.08 Other cranial cerebrospinal fluid leak; X58.XXXD Exposure to other specified factors, subsequent encounter; Y92.9 Unspecified place or not applicable

== ENCOUNTER → 2021-05-27 | Outpatient (CLI) | payer MEDICARE, BC, OTHER ==
[~2021-05-27] MED LIST changes: +OMEP40CA4 PO; -OMEP40CA97 PO
--- NOTE | 2021-05-27 14:22 | REP ---
INDICATION: SUBDURAL HEMOTOMA. COMPARISON: Comparison is made with prior CT studies dated October 05, 2020 and most recently, April 22, 2021.. TECHNIQUE: Helical scanning is acquired. 5 mm axial images were reformatted. Coronal MPR images were generated. FINDINGS: Digital preliminary supervisor tumblers radiograph is unremarkable. Bone window settings demonstrate intact bony calvarium. No skull fracture or bony destructive lesion is seen. The visualized paranasal sinuses are clear. There is some vascular calcification in the carotid siphons bilaterally. On soft tissue window settings, there is generalized volume loss again noted with concordant ventricular enlargement. Bilateral subacute subdural hematomas are again noted right a little larger than left. The left subdural hematoma has decreased since the initial study of October 05, 2020. The right subacute subdural hematoma appears similar in size to that prior exam and is still somewhat hyperdense relative to normal CSF density in the ventricles. There is a focal zone of encephalomalacia in the right posterior frontal lobe suggesting an old infarction. This is also unchanged. Study is otherwise unremarkable. IMPRESSION: Interval decrease in the size of the left subdural hematoma. The right subdural hematoma is unchanged in overall size. The collections remain slightly hyperdense relative to normal CSF in the ventricles. No midline shift or new lesion seen.. <Electronically signed by Jay Toro > 05/27/21 [id number]
== END ==
LOC: M RAD 13:06
PROVIDERS: ATTEND Neurological Surgery
DX: S06.5X9A Traumatic subdural hemorrhage with loss of consciousness of unspecified duration, initial encounter (principal); W18.30XA Fall on same level, unspecified, initial encounter; Y92.009 Unspecified place in unspecified non-institutional (private) residence as the place of occurrence of the external cause

== ENCOUNTER → 2021-06-14 | Outpatient (CLI) | payer MEDICARE, BC, OTHER ==
[2021-06-14 11:15] LABS: ALBUMIN 3.9 GM/DL (3.2-5.2); ALT/SGPT 35 U/L (12-78); BILIRUBIN,TOTAL 0.5 MG/DL (0.2-1.0); BLOOD UREA NITROGEN 9 MG/DL (7-18); CALCIUM LEVEL 9.3 MG/DL (8.8-10.2); CARBON DIOXIDE LEVEL 30 MEQ/L (21-32); CHLORIDE LEVEL 99 MEQ/L (98-107); CHOLESTEROL LEVEL 212 MG/DL (<200); CHOLESTEROL RISK RATIO 1.927 (<5); CREATININE FOR GFR 0.56 MG/DL (0.55-1.30); FREE T4 1.21 NG/DL (0.76-1.46); GLOMERULAR FILTRATION RATE > 60.0 (>39); GLUCOSE, FASTING 99 MG/DL (70-100); HDL CHOLESTEROL 110 MG/DL (>40); LDL CHOLESTEROL 91 MG/DL (<100); NON-HDL-C 102 MG/DL; POTASSIUM SERUM 4.9 MEQ/L (3.5-5.1); SODIUM LEVEL 134 MEQ/L (136-145); THYROID STIMULATING HORMONE 0.522 uIU/ML (0.358-3.740); TOTAL 25(OH) VITAMIN D 58.4 NG/ML (30.0-100.0); TOTAL PROTEIN 7.6 GM/DL (6.4-8.2); TRIGLYCERIDES LEVEL 57 MG/DL (<150)
== END ==
LOC: M PLALAB 08:29
PROVIDERS: ATTEND Nurse Practitioner Family
DX: I10 Essential (primary) hypertension (principal); E78.2 Mixed hyperlipidemia; E03.9 Hypothyroidism, unspecified; E55.9 Vitamin D deficiency, unspecified

== ENCOUNTER → 2021-06-17 | Outpatient (REF) | payer MEDICARE, BC, OTHER ==
[2021-06-17 14:05] LABS: CREATININE, URINE 15.5 MG/DL; MALB URINE SIEMENS 8.3 MG/L; MAU/CREAT RATIO 53.5 MCG/MG (0.0-30.0)
== END ==
LOC: M SFHCPLAZ 12:52
PROVIDERS: ATTEND Nurse Practitioner Family
DX: I10 Essential (primary) hypertension (principal)
CPT/HCPCS: 82043; G0463

== ENCOUNTER → 2021-07-20 | Outpatient (CLI) | payer MEDICARE, BC, OTHER ==
[2021-07-20 11:21] LABS: BLOOD UREA NITROGEN 13 MG/DL (7-18); CALCIUM LEVEL 9.1 MG/DL (8.8-10.2); CARBON DIOXIDE LEVEL 31 MEQ/L (21-32); CHLORIDE LEVEL 102 MEQ/L (98-107); CREATININE FOR GFR 0.49 MG/DL (0.55-1.30); GLOMERULAR FILTRATION RATE > 60.0 (>39); GLUCOSE, FASTING 93 MG/DL (70-100); POTASSIUM SERUM 4.6 MEQ/L (3.5-5.1); SODIUM LEVEL 136 MEQ/L (136-145)
== END ==
LOC: M PLALAB 08:43
PROVIDERS: ATTEND Physician Assistant
DX: I10 Essential (primary) hypertension (principal)

== ENCOUNTER → 2021-11-03 | Outpatient (CLI) | payer MEDICARE, BC, OTHER ==
[2021-11-03 14:05] LABS: ALBUMIN 3.8 GM/DL (3.2-5.2); ALT/SGPT 31 U/L (12-78); BILIRUBIN,TOTAL 0.5 MG/DL (0.2-1.0); BLOOD UREA NITROGEN 11 MG/DL (7-18); CALCIUM LEVEL 9.7 MG/DL (8.8-10.2); CARBON DIOXIDE LEVEL 30 MEQ/L (21-32); CHLORIDE LEVEL 101 MEQ/L (98-107); CREATININE FOR GFR 0.51 MG/DL (0.55-1.30); FREE T4 1.22 NG/DL (0.76-1.46); GLOMERULAR FILTRATION RATE > 60.0 (>39); GLUCOSE, FASTING 96 MG/DL (70-100); POTASSIUM SERUM 4.6 MEQ/L (3.5-5.1); SODIUM LEVEL 136 MEQ/L (136-145); THYROID STIMULATING HORMONE 0.211 uIU/ML (0.358-3.740); TOTAL PROTEIN 7.3 GM/DL (6.4-8.2)
== END ==
LOC: M PLALAB 09:46
PROVIDERS: ATTEND Physician Assistant Medical
DX: E78.2 Mixed hyperlipidemia (principal)

== ENCOUNTER → 2022-01-16 | Outpatient (CLI) | payer MEDICARE, BC, OTHER | LOC: M WHC 10:30 | PROVIDERS: ATTEND Obstetrics & Gynecology | DX: Z12.31 Encounter for screening mammogram for malignant neoplasm of breast (principal) ==

== ENCOUNTER 2022-01-23 07:30 | Emergency (ER) | payer MEDICARE, BC, OTHER ==
[~2022-01-23] VITALS: Ht 167.6 cm; Wt 50.0 kg
[2022-01-23 07:31] VITALS: BP 192/88
[2022-01-23] MEDS ORDERED: DULO40CA PO (07:38)
[2022-01-23] MEDS ORDERED: methylPREDNISolone 125MG 2ML VIAL IV ONE (09:15)
[2022-01-23] MEDS ORDERED: METH-1164 PO (10:47)
[2022-01-23] MEDS ORDERED: PRED10TA2 PO (10:47)
== END 2022-01-23 11:29 | disposition home or self-care (01) ==
LOC: M ED 08:58
DX: M54.50 Low back pain, unspecified (principal); I10 Essential (primary) hypertension; K21.9 Gastro-esophageal reflux disease without esophagitis; G43.909 Migraine, unspecified, not intractable, without status migrainosus; Z88.8 Allergy status to other drugs, medicaments and biological substances; Z79.899 Other long term (current) drug therapy; Z79.818 Long term (current) use of other agents affecting estrogen receptors and estrogen levels
CPT/HCPCS: 96374; 99283; J2930

== ENCOUNTER → 2022-03-21 | Outpatient (CLI) | payer MEDICARE, BC, OTHER ==
[~2022-03-21] MED LIST changes: +DULO40CA PO; +METH-1164 PO; +PRED10TA2 PO
[2022-03-21 13:44] LABS: CALCIUM LEVEL 8.7 MG/DL (8.8-10.2); CHOLESTEROL RISK RATIO 1.886 (<5); FREE T4 1.09 NG/DL (0.76-1.46); THYROID STIMULATING HORMONE 0.415 uIU/ML (0.358-3.740); TOTAL 25(OH) VITAMIN D 49.9 NG/ML (30.0-100.0)
== END ==
LOC: M PLALAB 09:14
PROVIDERS: ATTEND Physician Assistant Medical
DX: E03.9 Hypothyroidism, unspecified (principal); E55.9 Vitamin D deficiency, unspecified; E78.2 Mixed hyperlipidemia

== ENCOUNTER 2022-05-07 10:06 | Inpatient (IN) | payer MEDICARE, BC, OTHER ==
[~2022-05-07] VITALS: Ht 157.5 cm; Wt 50.4 kg
[2022-05-07] MEDS ORDERED: ISOVUE-370 76% 100ML VIAL As Ordered ONE (10:30)
[2022-05-07 10:35] LABS: BASO % 0.7 % (0.0-1.0); EOS # 0.1 10^3/uL (0.0-0.5); EOS % 1.2 % (0.0-3.0); HEMATOCRIT 38.5 % (36.0-47.0); HEMOGLOBIN 13.2 g/dl (12.0-15.5); LYMPH # 1.7 10^3/uL (1.5-5.0); LYMPH % 28.5 % (24.0-44.0); MEAN CORPUSCULAR HEMOGLOBIN 31.5 pg (27.0-33.0); MEAN CORPUSCULAR HGB CONC 34.3 g/dl (32.0-36.5); MEAN CORPUSCULAR VOLUME 91.9 fl (80.0-96.0); MONO # 0.5 10^3/uL (0.0-0.8); NEUTROPHILS # 3.5 10^3/uL (1.5-8.5); NEUTROPHILS % 60.3 % (36.0-66.0); PLATELET COUNT, AUTOMATED 288 10^3/uL (150-450); RED BLOOD COUNT 4.19 10^6/uL (4.00-5.40); WHITE BLOOD COUNT 5.8 10^3/uL (4.0-10.0)
[2022-05-07 10:46] LABS: INR 0.91; PROTHROMBIN TIME 12.7 SECONDS (12.7-14.5)
[2022-05-07 10:47] LABS: PARTIAL THROMBOPLASTIN TIME 36.1 SECONDS (25.9-37.0)
[2022-05-07] MEDS ORDERED: levETIRAcetam 500 MG/5 ML VIAL (KEPPRA IV)(J1953) As Ordered ONE (10:59)
[2022-05-07] MEDS ORDERED: MIDAZOLAM INJ 2MG/2ML VIAL (J2250 PER 1MG) As Ordered ONE (11:00)
[2022-05-07 11:03] LABS: CK-MB VALUE MASS 6.9 NG/ML (<3.6); CPK CREATINE PHOSPHOKINASE 200 U/L (26-192); MB/CK RELATIVE INDEX 3.45 (< OR =4)
[2022-05-07] MEDS ORDERED: LABETALOL 100MG/20ML VIAL As Ordered ONE (11:04)
[2022-05-07 11:05] LABS: RSV AMPLIFICATION NEGATIVE (NEGATIVE)
[2022-05-07] MEDS ORDERED: LABETALOL 100MG/20ML VIAL IV PRN (11:05)
[2022-05-07] MEDS ORDERED: levETIRAcetam INJection 1,000 MG in D5W 100 ML IV ONE (11:10)
[2022-05-07] MEDS ORDERED: MIDAZOLAM INJ 2MG/2ML VIAL (J2250 PER 1MG) IV STA (11:15)
[2022-05-07] MEDS ORDERED: LORazepam 2 MG/ML VIAL IV STA ×2 (13:29→15:27)
[2022-05-07] MEDS ORDERED: FLUO10CA18 PO (15:00)
[2022-05-07] MEDS ORDERED: METO1TAB87 PO (15:00)
[2022-05-07] MEDS ORDERED: D3 U5000 PO (15:00)
[2022-05-07] MEDS ORDERED: ESTR10TA PO (15:00)
[2022-05-07] MEDS ORDERED: ACET1TAB55 PO (15:00)
[2022-05-07] MEDS ORDERED: OMEP1CAP73 PO (15:10)
[2022-05-07] MEDS ORDERED: HOME MED LIST COMPLETE! XX SCH (15:15)
[2022-05-07] MEDS ORDERED: OLANZapine ORAL DISINTEGRATING TAB 5MG PO PRN (16:00)
[2022-05-07] MEDS ORDERED: amLODIPine 5 MG TAB PO ONE (17:20)
[2022-05-07] MEDS ORDERED: OMEPRAZOLE 20MG CAP PO PRN (20:55)
[2022-05-07 21:00] VITALS: BP 136/74
[2022-05-07] MEDS: levETIRAcetam 250MG TABLET (KEPPRA) PO SCH (21:00)
[2022-05-07] MEDS: METOPROLOL TART 25 MG TABLET PO SCH (21:00)
[2022-05-08] MEDS ORDERED: REFROIN OP (00:31)
[2022-05-08 06:00] VITALS: BP 141/73
[2022-05-08] MEDS: LEVOTHYROXINE 88MCG TABLET (0.088 MG) PO SCH (09:27)
[2022-05-08] MEDS: SIMVASTATIN 20 MG TAB PO SCH (09:27)
[2022-05-08] MEDS: METOPROLOL TART 25 MG TABLET PO SCH ×2 (09:27→20:15)
[2022-05-08] MEDS: levETIRAcetam 250MG TABLET (KEPPRA) PO SCH ×2 (09:27→20:12)
[2022-05-08] MEDS: ENOXAPARIN 40MG/0.4ML SYRINGE (J1650 PER 10MG) SC SCH (11:47)
[2022-05-08 15:08] VITALS: BP 145/74
[2022-05-08 21:26] VITALS: BP 140/63
[2022-05-09 05:58] LABS: BASO # 0.1 10^3/uL (0.0-0.2); BASO % 1.1 % (0.0-1.0); EOS # 0.2 10^3/uL (0.0-0.5); EOS % 3.6 % (0.0-3.0); HEMATOCRIT 40.8 % (36.0-47.0); HEMOGLOBIN 13.5 g/dl (12.0-15.5); LYMPH # 1.8 10^3/uL (1.5-5.0); LYMPH % 36.9 % (24.0-44.0); MEAN CORPUSCULAR HEMOGLOBIN 31.3 pg (27.0-33.0); MEAN CORPUSCULAR HGB CONC 33.1 g/dl (32.0-36.5); MEAN CORPUSCULAR VOLUME 94.7 fl (80.0-96.0); MONO # 0.5 10^3/uL (0.0-0.8); NEUTROPHILS # 2.3 10^3/uL (1.5-8.5); NEUTROPHILS % 47.4 % (36.0-66.0); PLATELET COUNT, AUTOMATED 280 10^3/uL (150-450); RED BLOOD COUNT 4.31 10^6/uL (4.00-5.40); WHITE BLOOD COUNT 4.7 10^3/uL (4.0-10.0)
[2022-05-09 06:00] VITALS: BP 136/62
[2022-05-09 06:35] LABS: BLOOD UREA NITROGEN 14 MG/DL (7-18); CALCIUM LEVEL 9.4 MG/DL (8.8-10.2); CARBON DIOXIDE LEVEL 29 MEQ/L (21-32); CHLORIDE LEVEL 107 MEQ/L (98-107); GLOMERULAR FILTRATION RATE > 60.0 (>39); GLUCOSE, FASTING 106 MG/DL (70-100); POTASSIUM SERUM 4.6 MEQ/L (3.5-5.1); SODIUM LEVEL 142 MEQ/L (136-145)
[2022-05-09] MEDS ORDERED: KEPP250T5 PO (08:51)
[2022-05-09] MEDS: levETIRAcetam 250MG TABLET (KEPPRA) PO SCH (09:03)
[2022-05-09] MEDS: LEVOTHYROXINE 88MCG TABLET (0.088 MG) PO SCH (09:03)
[2022-05-09] MEDS: SIMVASTATIN 20 MG TAB PO SCH (09:03)
[2022-05-09 09:04] VITALS: BP 136/62
[2022-05-09] MEDS: METOPROLOL TART 25 MG TABLET PO SCH (09:04)
[2022-05-09] MEDS: ENOXAPARIN 40MG/0.4ML SYRINGE (J1650 PER 10MG) SC SCH (09:04)
[2022-05-09 14:00] VITALS: BP 146/76
== END 2022-05-09 15:35 | disposition home or self-care (01) | DRG 101 ==
LOC: M ED 10:06 → M ED INP 15:27 → ENRESERV 15:41 → M MS5PR 16:15
PROVIDERS: ADMIT Internal Medicine Nephrology; ATTEND Internal Medicine
DX: R56.9 Unspecified convulsions (principal); R47.01 Aphasia; G62.89 Other specified polyneuropathies; M48.00 Spinal stenosis, site unspecified; I10 Essential (primary) hypertension; Z86.73 Personal history of transient ischemic attack (TIA), and cerebral infarction without residual deficits; Z79.899 Other long term (current) drug therapy; Z95.2 Presence of prosthetic heart valve; K57.30 Diverticulosis of large intestine without perforation or abscess without bleeding; E78.5 Hyperlipidemia, unspecified; K59.00 Constipation, unspecified; F41.9 Anxiety disorder, unspecified; M19.90 Unspecified osteoarthritis, unspecified site; L71.9 Rosacea, unspecified; Z98.41 Cataract extraction status, right eye; E89.0 Postprocedural hypothyroidism

== ENCOUNTER → 2022-05-15 | Outpatient (CLI) | payer MEDICARE, BC, OTHER ==
[~2022-05-15] MED LIST changes: +ACET1TAB55 PO; +D3 U5000 PO; +ESTR10TA PO; +FLUO10CA18 PO; +KEPP250T5 PO; +METO1TAB87 PO; +OMEP1CAP73 PO; +REFROIN OP
[2022-05-15 13:46] LABS: BASO # 0.1 10^3/uL (0.0-0.2); EOS # 0.1 10^3/uL (0.0-0.5); EOS % 1.2 % (0.0-3.0); HEMATOCRIT 37.5 % (36.0-47.0); HEMOGLOBIN 12.8 g/dl (12.0-15.5); LYMPH # 1.6 10^3/uL (1.5-5.0); MEAN CORPUSCULAR HEMOGLOBIN 32.3 pg (27.0-33.0); MEAN CORPUSCULAR HGB CONC 34.1 g/dl (32.0-36.5); MEAN CORPUSCULAR VOLUME 94.7 fl (80.0-96.0); MONO # 0.5 10^3/uL (0.0-0.8); MONO % 10.4 % (2.0-8.0); NEUTROPHILS # 2.9 10^3/uL (1.5-8.5); NEUTROPHILS % 56.2 % (36.0-66.0); PLATELET COUNT, AUTOMATED 269 10^3/uL (150-450); RED BLOOD COUNT 3.96 10^6/uL (4.00-5.40); WHITE BLOOD COUNT 5.2 10^3/uL (4.0-10.0)
[2022-05-15 16:19] LABS: ALBUMIN 3.9 GM/DL (3.2-5.2); ALT/SGPT 31 U/L (12-78); BILIRUBIN,TOTAL 0.2 MG/DL (0.2-1.0); BLOOD UREA NITROGEN 11 MG/DL (7-18); CALCIUM LEVEL 8.9 MG/DL (8.8-10.2); CARBON DIOXIDE LEVEL 30 MEQ/L (21-32); CHLORIDE LEVEL 102 MEQ/L (98-107); CREATININE FOR GFR 0.49 MG/DL (0.55-1.30); FREE T4 1.17 NG/DL (0.76-1.46); GLOMERULAR FILTRATION RATE > 60.0 (>39); GLUCOSE, FASTING 87 MG/DL (70-100); POTASSIUM SERUM 4.8 MEQ/L (3.5-5.1); SODIUM LEVEL 138 MEQ/L (136-145); THYROID STIMULATING HORMONE 0.541 uIU/ML (0.358-3.740)
== END ==
LOC: M PLALAB 11:47
PROVIDERS: ATTEND Physician Assistant Medical
DX: R56.9 Unspecified convulsions (principal); E03.9 Hypothyroidism, unspecified; E78.2 Mixed hyperlipidemia; I10 Essential (primary) hypertension

== ENCOUNTER → 2022-06-22 | Outpatient (CLI) | payer MEDICARE, BC, OTHER ==
[~2022-06-22] MED LIST changes: +SIMV-253 PO; -ZOCO20TA PO
[2022-06-22 11:21] LABS: BASO % 0.7 % (0.0-1.0); EOS # 0.1 10^3/uL (0.0-0.5); EOS % 3.2 % (0.0-3.0); HEMATOCRIT 36.8 % (36.0-47.0); HEMOGLOBIN 13.2 g/dl (12.0-15.5); LYMPH # 1.3 10^3/uL (1.5-5.0); LYMPH % 31.9 % (24.0-44.0); MEAN CORPUSCULAR HGB CONC 35.9 g/dl (32.0-36.5); MEAN CORPUSCULAR VOLUME 89.1 fl (80.0-96.0); MONO # 0.5 10^3/uL (0.0-0.8); MONO % 13.2 % (2.0-8.0); NEUTROPHILS % 50.8 % (36.0-66.0); PLATELET COUNT, AUTOMATED 224 10^3/uL (150-450); RED BLOOD COUNT 4.13 10^6/uL (4.00-5.40)
[2022-06-22 12:04] LABS: ALBUMIN 3.9 GM/DL (3.2-5.2); ALT/SGPT 26 U/L (12-78); BILIRUBIN,TOTAL 0.4 MG/DL (0.2-1.0); BLOOD UREA NITROGEN 9 MG/DL (7-18); CARBON DIOXIDE LEVEL 27 MEQ/L (21-32); CHLORIDE LEVEL 87 MEQ/L (98-107); CREATININE FOR GFR 0.51 MG/DL (0.55-1.30); GLOMERULAR FILTRATION RATE > 60.0 (>39); GLUCOSE, FASTING 90 MG/DL (70-100); POTASSIUM SERUM 4.7 MEQ/L (3.5-5.1); SODIUM LEVEL 123 MEQ/L (136-145); TOTAL PROTEIN 7.3 GM/DL (6.4-8.2); VALPROIC ACID (DEPAKOTE) 85.5 UG/ML (50.0-100.0)
== END ==
LOC: M PLALAB 07:35
PROVIDERS: ATTEND Psychiatry & Neurology Neurology
DX: R56.9 Unspecified convulsions (principal)

== ENCOUNTER 2022-06-26 18:41 | Emergency (ER) | payer MEDICARE, BC, OTHER ==
[~2022-06-26] VITALS: Ht 167.6 cm; Wt 51.7 kg
[2022-06-27] MEDS ORDERED: NS 500 ML IV ONE ×2 (00:30→03:20)
[2022-06-27 00:41] LABS: HEMOGLOBIN 11.9 g/dl (12.0-15.5); MEAN CORPUSCULAR HEMOGLOBIN 31.5 pg (27.0-33.0); MEAN CORPUSCULAR VOLUME 89.9 fl (80.0-96.0); PLATELET COUNT, AUTOMATED 214 10^3/uL (150-450); RED BLOOD COUNT 3.78 10^6/uL (4.00-5.40); WHITE BLOOD COUNT 5.2 10^3/uL (4.0-10.0)
[2022-06-27 01:06] LABS: OSMOLALITY SERUM 271 MOSM/KG (280-301)
[2022-06-27 01:19] LABS: BLOOD UREA NITROGEN 10 MG/DL (7-18); CALCIUM LEVEL 9.3 MG/DL (8.8-10.2); CARBON DIOXIDE LEVEL 31 MEQ/L (21-32); CHLORIDE LEVEL 95 MEQ/L (98-107); CHOLESTEROL LEVEL 194 MG/DL (<200); CHOLESTEROL RISK RATIO 1.732 (<5); CREATININE FOR GFR 0.45 MG/DL (0.55-1.30); GLOMERULAR FILTRATION RATE > 60.0 (>39); GLUCOSE, FASTING 90 MG/DL (70-100); HDL CHOLESTEROL 112 MG/DL (>40); LDL CHOLESTEROL 76 MG/DL (<100); MAGNESIUM LEVEL 2.1 MG/DL (1.8-2.4); NON-HDL-C 82 MG/DL; POTASSIUM SERUM 4.2 MEQ/L (3.5-5.1); SODIUM LEVEL 131 MEQ/L (136-145); TRIGLYCERIDES LEVEL 30 MG/DL (<150)
[2022-06-27 05:14] VITALS: BP 154/71
== END 2022-06-27 05:21 | disposition home or self-care (01) ==
LOC: M ED 18:41
DX: E87.1 Hypo-osmolality and hyponatremia (principal); Z79.890 Hormone replacement therapy; Z79.899 Other long term (current) drug therapy; Z88.8 Allergy status to other drugs, medicaments and biological substances

== ENCOUNTER → 2022-07-03 | Outpatient (CLI) | payer MEDICARE, BC, OTHER ==
[2022-07-03 13:22] LABS: TOTAL VOLUME, URINE 2750 ML
[2022-07-03 13:28] LABS: SODIUM 24 HOUR URINE 57 MEQ/24HR (40-220); SODIUM, URINE 21 MEQ/L
== END ==
LOC: M PLALAB 07:41
PROVIDERS: ATTEND Physician Assistant Medical
DX: E87.1 Hypo-osmolality and hyponatremia (principal)

== ENCOUNTER → 2022-07-26 | Outpatient (CLI) | payer MEDICARE, BC, OTHER ==
[2022-07-26 15:04] LABS: ALBUMIN 3.9 GM/DL (3.2-5.2); ALT/SGPT 50 U/L (12-78); BILIRUBIN,TOTAL 0.4 MG/DL (0.2-1.0); BLOOD UREA NITROGEN 9 MG/DL (7-18); CALCIUM LEVEL 9.2 MG/DL (8.8-10.2); CARBON DIOXIDE LEVEL 29 MEQ/L (21-32); CHLORIDE LEVEL 101 MEQ/L (98-107); CREATININE FOR GFR 0.52 MG/DL (0.55-1.30); GLOMERULAR FILTRATION RATE > 60.0 (>39); GLUCOSE, FASTING 82 MG/DL (70-100); POTASSIUM SERUM 4.4 MEQ/L (3.5-5.1); SODIUM LEVEL 134 MEQ/L (136-145); TOTAL PROTEIN 7.2 GM/DL (6.4-8.2)
== END ==
LOC: M PLALAB 11:44
PROVIDERS: ATTEND Physician Assistant Medical
DX: E87.1 Hypo-osmolality and hyponatremia (principal)

== ENCOUNTER → 2022-09-21 | Outpatient (CLI) | payer MEDICARE, BC, OTHER | LOC: M PLAIMG 11:34 | PROVIDERS: ATTEND Physician Assistant | DX: R07.81 Pleurodynia (principal) ==

== ENCOUNTER → 2022-09-27 | Outpatient (CLI) | payer MEDICARE, BC, OTHER | LOC: M WHC 10:27 | PROVIDERS: ATTEND Physician Assistant | DX: N64.4 Mastodynia (principal) | CPT/HCPCS: 77065; G0279 ==

== ENCOUNTER → 2022-10-03 | Outpatient (CLI) | payer MEDICARE, BC, OTHER ==
[2022-10-03 18:51] LABS: BASO % 0.8 % (0.0-1.0); EOS # 0.1 10^3/uL (0.0-0.5); EOS % 1.3 % (0.0-3.0); HEMATOCRIT 35.7 % (36.0-47.0); HEMOGLOBIN 12.4 g/dl (12.0-15.5); LYMPH # 1.9 10^3/uL (1.5-5.0); MEAN CORPUSCULAR HEMOGLOBIN 34.1 pg (27.0-33.0); MEAN CORPUSCULAR HGB CONC 34.7 g/dl (32.0-36.5); MEAN CORPUSCULAR VOLUME 98.1 fl (80.0-96.0); MONO # 0.5 10^3/uL (0.0-0.8); MONO % 9.4 % (2.0-8.0); NEUTROPHILS # 2.7 10^3/uL (1.5-8.5); NEUTROPHILS % 51.3 % (36.0-66.0); PLATELET COUNT, AUTOMATED 262 10^3/uL (150-450); RED BLOOD COUNT 3.64 10^6/uL (4.00-5.40); WHITE BLOOD COUNT 5.2 10^3/uL (4.0-10.0)
[2022-10-03 20:29] LABS: ALT/SGPT 34 U/L (7.0-40); BILIRUBIN,TOTAL 0.4 MG/DL (0.3-1.2); BLOOD UREA NITROGEN 13 MG/DL (9-23); CALCIUM LEVEL 9.4 MG/DL (8.3-10.6); CARBON DIOXIDE LEVEL 29 MMOL/L (20-31); CHLORIDE LEVEL 100 MMOL/L (98-107); CREATININE FOR GFR 0.57 MG/DL (0.55-1.30); GLOMERULAR FILTRATION RATE > 60.0 (>39); GLUCOSE, FASTING 77 MG/DL (74-106); POTASSIUM SERUM 4.3 MMOL/L (3.5-5.1); SODIUM LEVEL 138 MMOL/L (136-145); TOTAL PROTEIN 6.7 G/DL
== END ==
LOC: M PLALAB 14:33
PROVIDERS: ATTEND Psychiatry & Neurology Neurology
DX: R56.9 Unspecified convulsions (principal)

== ENCOUNTER → 2022-11-30 | Outpatient (CLI) | payer MEDICARE, BC, OTHER | LOC: M PLAIMG 11:48 | PROVIDERS: ATTEND Physician Assistant Medical | DX: S06.5X0A Traumatic subdural hemorrhage without loss of consciousness, initial encounter (principal); W19.XXXA Unspecified fall, initial encounter ==

== ENCOUNTER → 2022-12-01 | Outpatient (CLI) | payer MEDICARE, BC, OTHER | LOC: M PLAIMG 07:42 | PROVIDERS: ATTEND Physician Assistant Medical | DX: M54.2 Cervicalgia (principal) ==

== ENCOUNTER → 2023-01-16 | Outpatient (CLI) | payer MEDICARE, BC, OTHER | LOC: M RAD 09:59 | PROVIDERS: ATTEND Physician Assistant | DX: L53.9 Erythematous condition, unspecified (principal); I87.2 Venous insufficiency (chronic) (peripheral); R21 Rash and other nonspecific skin eruption ==

== ENCOUNTER → 2023-01-17 | Outpatient (CLI) | payer MEDICARE, BC, OTHER | LOC: M WHC 10:13 | PROVIDERS: ATTEND Physician Assistant Medical | DX: Z12.31 Encounter for screening mammogram for malignant neoplasm of breast (principal); M85.851 Other specified disorders of bone density and structure, right thigh; M85.852 Other specified disorders of bone density and structure, left thigh ==

== ENCOUNTER → 2023-01-29 | Outpatient (CLI) | payer MEDICARE, BC, OTHER ==
[2023-01-29 10:52] LABS: BASO % 0.7 % (0.0-1.0); EOS # 0.1 10^3/uL (0.0-0.5); EOS % 2.3 % (0.0-3.0); HEMATOCRIT 37.3 % (36.0-47.0); HEMOGLOBIN 12.6 g/dl (12.0-15.5); LYMPH # 1.3 10^3/uL (1.5-5.0); LYMPH % 29.5 % (24.0-44.0); MEAN CORPUSCULAR HEMOGLOBIN 32.4 pg (27.0-33.0); MEAN CORPUSCULAR HGB CONC 33.8 g/dl (32.0-36.5); MEAN CORPUSCULAR VOLUME 95.9 fl (80.0-96.0); MONO # 0.5 10^3/uL (0.0-0.8); MONO % 11.9 % (2.0-8.0); NEUTROPHILS # 2.4 10^3/uL (1.5-8.5); NEUTROPHILS % 55.4 % (36.0-66.0); PLATELET COUNT, AUTOMATED 272 10^3/uL (150-450); RED BLOOD COUNT 3.89 10^6/uL (4.00-5.40); WHITE BLOOD COUNT 4.3 10^3/uL (4.0-10.0)
[2023-01-29 11:18] LABS: CPK CREATINE PHOSPHOKINASE 201 U/L (34-145)
[2023-01-29 11:23] LABS: THYROID STIMULATING HORMONE 1.963 uIU/ML (0.55-4.78)
[2023-01-29 11:24] LABS: FREE T4 1.35 NG/DL (0.89-1.76)
[2023-01-29 11:26] LABS: ALBUMIN 4.1 G/DL (3.2-5.2); ALKALINE PHOSPHATASE 73 U/L (46-116); ALT/SGPT 38 U/L (7.0-40); AST/SGOT 33 U/L (<34); BILIRUBIN,TOTAL 0.5 MG/DL (0.3-1.2); BLOOD UREA NITROGEN 10 MG/DL (9-23); CARBON DIOXIDE LEVEL 30 MMOL/L (20-31); CHLORIDE LEVEL 98 MMOL/L (98-107); CHOLESTEROL LEVEL 222 MG/DL (<200); CHOLESTEROL RISK RATIO 1.97 (<5); CREATININE FOR GFR 0.53 MG/DL (0.55-1.30); GLOMERULAR FILTRATION RATE > 60.0 (>39); GLUCOSE, FASTING 114 MG/DL (74-106); HDL CHOLESTEROL 112.6 MG/DL (>40); NON-HDL-C 109.4 MG/DL; POTASSIUM SERUM 4.6 MMOL/L (3.5-5.1); SODIUM LEVEL 134 MMOL/L (136-145); TOTAL PROTEIN 7.1 G/DL (5.7-8.2); TRIGLYCERIDES LEVEL 52 MG/DL (<150)
== END ==
LOC: M PLALAB 07:50
PROVIDERS: ATTEND Physician Assistant Medical
DX: E78.2 Mixed hyperlipidemia (principal); I10 Essential (primary) hypertension; E03.9 Hypothyroidism, unspecified

== ENCOUNTER 2023-02-22 08:41 | Inpatient (IN) | payer MEDICARE, BC, OTHER ==
[~2023-02-22] VITALS: Ht 167.6 cm; Wt 51.9 kg
[2023-02-22] VITALS (20 sets, daily range): BP systolic 103–139; BP diastolic 56–76
[~2023-02-22 08:41] MED LIST changes: -REFROIN OP; +REFROIN OU
[2023-02-22] MEDS ORDERED: ISOVUE-370 76% 100ML VIAL As Ordered ONE (08:54)
[2023-02-22] MEDS: LEVOTHYROXINE 100MCG (0.1MG) 5ML SDV PF (SOLUTION FORM) IV SCH (09:00)
[2023-02-22 09:19] LABS: BASO % 0.5 % (0.0-1.0); EOS % 0.3 % (0.0-3.0); HEMATOCRIT 36.6 % (36.0-47.0); HEMOGLOBIN 12.5 g/dl (12.0-15.5); LYMPH # 1.3 10^3/uL (1.5-5.0); LYMPH % 17.3 % (24.0-44.0); MEAN CORPUSCULAR HEMOGLOBIN 31.6 pg (27.0-33.0); MEAN CORPUSCULAR HGB CONC 34.2 g/dl (32.0-36.5); MEAN CORPUSCULAR VOLUME 92.4 fl (80.0-96.0); MONO # 0.6 10^3/uL (0.0-0.8); MONO % 8.2 % (2.0-8.0); NEUTROPHILS # 5.5 10^3/uL (1.5-8.5); NEUTROPHILS % 73.6 % (36.0-66.0); PLATELET COUNT, AUTOMATED 287 10^3/uL (150-450); RED BLOOD COUNT 3.96 10^6/uL (4.00-5.40); WHITE BLOOD COUNT 7.5 10^3/uL (4.0-10.0)
[2023-02-22 09:37] LABS: INR 0.88; PARTIAL THROMBOPLASTIN TIME 33.7 SECONDS (24.8-34.2); PROTHROMBIN TIME 12.1 SECONDS (12.5-14.5)
[2023-02-22 09:42] LABS: CK-MB VALUE MASS 11.3 NG/ML (<3.6); CPK CREATINE PHOSPHOKINASE 429 U/L (34-145); MB/CK RELATIVE INDEX 2.63 (< OR =4)
[2023-02-22 09:45] LABS: RSV AMPLIFICATION NEGATIVE (NEGATIVE)
[2023-02-22 09:46] LABS: FREE T4 1.18 NG/DL (0.89-1.76); THYROID STIMULATING HORMONE 14.365 uIU/ML (0.55-4.78)
[2023-02-22 09:51] LABS: ALBUMIN 4.2 G/DL (3.2-5.2); ALKALINE PHOSPHATASE 75 U/L (46-116); ALT/SGPT 32 U/L (7.0-40); AST/SGOT 33 U/L (<34); BILIRUBIN,DIRECT 0.2 MG/DL (<0.4); BILIRUBIN,TOTAL 0.6 MG/DL (0.3-1.2); BLOOD UREA NITROGEN 11 MG/DL (9-23); CALCIUM LEVEL 8.6 MG/DL (8.3-10.6); CARBON DIOXIDE LEVEL 27 MMOL/L (20-31); CHLORIDE LEVEL 93 MMOL/L (98-107); CREATININE FOR GFR 0.51 MG/DL (0.55-1.30); GLOMERULAR FILTRATION RATE > 60.0 (>39); GLUCOSE, FASTING 133 MG/DL (74-106); POTASSIUM SERUM 3.9 MMOL/L (3.5-5.1); SODIUM LEVEL 127 MMOL/L (136-145)
[2023-02-22] MEDS ORDERED: PIME1CRE TOP (10:26)
[2023-02-22] MEDS ORDERED: METR0.7534 TOP (10:26)
[2023-02-22] MEDS ORDERED: [UNRECOGNIZED DRUG - CODE] OU (10:26)
[2023-02-22] MEDS ORDERED: LEVE500T5 PO (10:26)
[2023-02-22] MEDS ORDERED: HOME MED LIST COMPLETE! XX SCH (10:30)
[2023-02-22] MEDS ORDERED: levETIRAcetam INJection 1,000 MG in D5W 100 ML IV ONE (10:35)
[2023-02-22] MEDS ORDERED: NS 1,000 ML IV SCH ×2 (11:45→15:10)
[2023-02-22] MEDS ORDERED: ACETAMINOPHEN 650MG SUPP PR PRN (11:50)
[2023-02-22] MEDS ORDERED: ASPIRIN 300 MG SUPP PR ONE (12:00)
[2023-02-22 13:11] LABS: CORTISOL AM 41.4 UG/DL (4.3-22.4)
[2023-02-22 13:12] LABS: CK-MB VALUE MASS 28.9 NG/ML (<3.6); MB/CK RELATIVE INDEX 5.78 (< OR =4)
[2023-02-22] MEDS ORDERED: NS 1,000 ML IV ONE (14:25)
[2023-02-22] MEDS: NOREPINEPHRINE 4MG IN D5 250ML 4 MG in IV 1 EA IV SCH ×2 (14:50)
[2023-02-22 14:58] LABS: ABG BASE EXCESS -5.5 (-2.0-2.0); ABG HCO3 20.8 MEQ/L (22.0-26.0); ABG O2 SATURATION 93.9 % (95.0-99.0); ABG PARTIAL PRESSURE CO2 43.8 mmHg (35.0-45.0); ABG PARTIAL PRESSURE O2 77.4 mmHg (75.0-100.0); ABG STANDARD HCO3 19.9 MEQ/L (22.0-26.0); ABG TOTAL CO2 22.2 MEQ/L (23.0-31.0); ABG pH (ARTERIAL) 7.295 UNITS (7.350-7.450)
[2023-02-22] MEDS ORDERED: NOREPINEPHRINE 4MG IN D5 250ML 4 MG in IV 1 EA IV SCH ×2 (15:05)
[2023-02-22] MEDS ORDERED: ALBUTEROL SULFATE 2.5MG/0.5ML INH NEB SOLN NEB PRN (15:05)
[2023-02-22 15:20] LABS: BLOOD UREA NITROGEN 12 MG/DL (9-23); CALCIUM LEVEL 7.8 MG/DL (8.3-10.6); CARBON DIOXIDE LEVEL 26 MMOL/L (20-31); CHLORIDE LEVEL 93 MMOL/L (98-107); CREATININE FOR GFR 0.53 MG/DL (0.55-1.30); GLOMERULAR FILTRATION RATE > 60.0 (>39); GLUCOSE, FASTING 183 MG/DL (74-106); POTASSIUM SERUM 4.1 MMOL/L (3.5-5.1); SODIUM LEVEL 126 MMOL/L (136-145)
[2023-02-22 16:23] LABS: ABG BASE EXCESS -4.1 (-2.0-2.0); ABG HCO3 20.6 MEQ/L (22.0-26.0); ABG O2 SATURATION 93.3 % (95.0-99.0); ABG PARTIAL PRESSURE CO2 36.8 mmHg (35.0-45.0); ABG PARTIAL PRESSURE O2 68.4 mmHg (75.0-100.0); ABG TOTAL CO2 21.7 MEQ/L (23.0-31.0); ABG pH (ARTERIAL) 7.366 UNITS (7.350-7.450)
[2023-02-22] MEDS: NS 1,000 ML IV SCH (16:25)
[2023-02-22] MEDS: PIPERACILLIN/TAZOBACTAM SOD 3.375 GM in D5W MINI-BAG PLUS 50 ML IV SCH ×2 (16:32→22:10)
[2023-02-22 20:01] LABS: BLOOD UREA NITROGEN 11 MG/DL (9-23); CALCIUM LEVEL 7.8 MG/DL (8.3-10.6); CARBON DIOXIDE LEVEL 21 MMOL/L (20-31); CHLORIDE LEVEL 97 MMOL/L (98-107); CREATININE FOR GFR 0.51 MG/DL (0.55-1.30); GLOMERULAR FILTRATION RATE > 60.0 (>39); GLUCOSE, FASTING 157 MG/DL (74-106); POTASSIUM SERUM 4.7 MMOL/L (3.5-5.1); SODIUM LEVEL 127 MMOL/L (136-145)
[2023-02-22] MEDS: AZITHROMYCIN INJ 500 MG, VIAL MATE ADAPTER 1 EACH in NS 250 ML IV SCH (21:04)
[2023-02-22] MEDS ORDERED: D5W MINI IV SCH (23:00)
[2023-02-22] MEDS ORDERED: LEVETIRACETAM IV SCH (23:00)
[2023-02-23] VITALS (28 sets, daily range): BP systolic 100–134; BP diastolic 54–66
[2023-02-23] MEDS: NOREPINEPHRINE 4MG IN D5 250ML 4 MG in IV 1 EA IV SCH ×2 (00:22)
[2023-02-23] MEDS: NS 1,000 ML IV SCH ×4 (01:53→19:43)
[2023-02-23] MEDS: PIPERACILLIN/TAZOBACTAM SOD 3.375 GM in D5W MINI-BAG PLUS 50 ML IV SCH ×4 (04:05→21:23)
[2023-02-23 05:12] LABS: HEMATOCRIT 34.1 % (36.0-47.0); HEMOGLOBIN 12.3 g/dl (12.0-15.5); MEAN CORPUSCULAR HEMOGLOBIN 32.8 pg (27.0-33.0); MEAN CORPUSCULAR HGB CONC 36.1 g/dl (32.0-36.5); MEAN CORPUSCULAR VOLUME 90.9 fl (80.0-96.0); PLATELET COUNT, AUTOMATED 256 10^3/uL (150-450); RED BLOOD COUNT 3.75 10^6/uL (4.00-5.40); WHITE BLOOD COUNT 11.1 10^3/uL (4.0-10.0)
[2023-02-23 05:37] LABS: ABG HCO3 23.2 MEQ/L (22.0-26.0); ABG O2 SATURATION 97.1 % (95.0-99.0); ABG PARTIAL PRESSURE CO2 33.4 mmHg (35.0-45.0); ABG PARTIAL PRESSURE O2 80.7 mmHg (75.0-100.0); ABG STANDARD HCO3 24.5 MEQ/L (22.0-26.0); ABG TOTAL CO2 24.2 MEQ/L (23.0-31.0)
[2023-02-23 05:40] LABS: ALBUMIN 3.1 G/DL (3.2-5.2); ALKALINE PHOSPHATASE 68 U/L (46-116); ALT/SGPT 34 U/L (7.0-40); AST/SGOT 90 U/L (<34); BILIRUBIN,TOTAL 0.7 MG/DL (0.3-1.2); BLOOD UREA NITROGEN 9 MG/DL (9-23); CALCIUM LEVEL 7.4 MG/DL (8.3-10.6); CARBON DIOXIDE LEVEL 26 MMOL/L (20-31); CHLORIDE LEVEL 99 MMOL/L (98-107); CHOLESTEROL LEVEL 201 MG/DL (<200); CHOLESTEROL RISK RATIO 1.79 (<5); CREATININE FOR GFR 0.51 MG/DL (0.55-1.30); GLOMERULAR FILTRATION RATE > 60.0 (>39); GLUCOSE, FASTING 117 MG/DL (74-106); HDL CHOLESTEROL 112.2 MG/DL (>40); LDL CHOLESTEROL 80.4 MG/DL (<100); MAGNESIUM LEVEL 1.6 MG/DL (1.8-2.4); NON-HDL-C 88.8 MG/DL; POTASSIUM SERUM 4.2 MMOL/L (3.5-5.1); SODIUM LEVEL 130 MMOL/L (136-145); TOTAL PROTEIN 5.8 G/DL (5.7-8.2); TRIGLYCERIDES LEVEL 42 MG/DL (<150)
[2023-02-23] MEDS ORDERED: MAG SULF 1GM/100ML (MAG RUN) 1 GM in IV 1 EA IV ONE (06:00)
[2023-02-23] MEDS: LEVOTHYROXINE 100MCG (0.1MG) 5ML SDV PF (SOLUTION FORM) IV SCH (08:47)
[2023-02-23] MEDS ORDERED: PANTOPRAZOLE 40MG VIAL IV SCH (09:00)
[2023-02-23 10:02] LABS: OSMOLALITY URINE 311 MOSM/KG (50-1400)
[2023-02-23 10:27] LABS: SODIUM,RANDOM URINE 37 MMOL/L
[2023-02-23] MEDS: levETIRAcetam 250MG TABLET (KEPPRA) PO SCH ×2 (10:56→21:24)
[2023-02-23] MEDS: ASPIRIN 81MG ENTERIC TABLET PO SCH (11:58)
[2023-02-23] MEDS: AZITHROMYCIN INJ 500 MG, VIAL MATE ADAPTER 1 EACH in NS 250 ML IV SCH (18:22)
[2023-02-23] MEDS ORDERED: SIMVASTATIN 20 MG TAB PO SCH (21:00)
[2023-02-23] MEDS: SIMVASTATIN 20 MG TAB PO SCH (21:23)
[2023-02-24] VITALS (9 sets, daily range): BP systolic 114–165; BP diastolic 58–74
[2023-02-24] MEDS: PIPERACILLIN/TAZOBACTAM SOD 3.375 GM in D5W MINI-BAG PLUS 50 ML IV SCH (04:20)
[2023-02-24 05:40] LABS: HEMATOCRIT 34.8 % (36.0-47.0); MEAN CORPUSCULAR HGB CONC 34.5 g/dl (32.0-36.5); MEAN CORPUSCULAR VOLUME 92.8 fl (80.0-96.0); PLATELET COUNT, AUTOMATED 250 10^3/uL (150-450); RED BLOOD COUNT 3.75 10^6/uL (4.00-5.40); WHITE BLOOD COUNT 12.2 10^3/uL (4.0-10.0)
[2023-02-24] MEDS: LEVOTHYROXINE 88MCG TABLET (0.088 MG) PO SCH (05:59)
[2023-02-24 06:10] LABS: ALBUMIN 2.8 G/DL (3.2-5.2); ALKALINE PHOSPHATASE 60 U/L (46-116); ALT/SGPT 33 U/L (7.0-40); AST/SGOT 68 U/L (<34); BILIRUBIN,TOTAL 0.6 MG/DL (0.3-1.2); BLOOD UREA NITROGEN 9 MG/DL (9-23); CALCIUM LEVEL 7.7 MG/DL (8.3-10.6); CARBON DIOXIDE LEVEL 23 MMOL/L (20-31); CHLORIDE LEVEL 100 MMOL/L (98-107); CREATININE FOR GFR 0.49 MG/DL (0.55-1.30); GLOMERULAR FILTRATION RATE > 60.0 (>39); GLUCOSE, FASTING 105 MG/DL (74-106); MAGNESIUM LEVEL 1.9 MG/DL (1.8-2.4); POTASSIUM SERUM 3.9 MMOL/L (3.5-5.1); SODIUM LEVEL 132 MMOL/L (136-145); TOTAL PROTEIN 5.4 G/DL (5.7-8.2)
[2023-02-24] MEDS ORDERED: PANTOPRAZOLE 40MG VIAL IV SCH (09:00)
[2023-02-24 09:17] LABS: C REACTIVE PROTEIN QUANTITATIV < 0.40 MG/DL (<1.0)
[2023-02-24] MEDS: ALPRAZolam 0.5 MG TAB PO PRN ×2 (09:59→20:41)
[2023-02-24] MEDS: guaiFENesin ER 600 MG TAB PO SCH ×2 (09:59→20:40)
[2023-02-24] MEDS: ASPIRIN 81MG ENTERIC TABLET PO SCH (09:59)
[2023-02-24] MEDS: levETIRAcetam 250MG TABLET (KEPPRA) PO SCH ×2 (09:59→20:40)
[2023-02-24] MEDS: MOXIFLOXACIN 400 MG TAB PO SCH (10:00)
[2023-02-24] MEDS: METOPROLOL TART 25 MG TABLET PO SCH ×2 (10:00→20:40)
[2023-02-24] MEDS: SIMVASTATIN 20 MG TAB PO SCH (20:40)
[2023-02-25] MEDS: ACETAMINOPHEN TAB 650MG DOSE (2X325MG) PO PRN ×2 (01:44→20:24)
[2023-02-25] MEDS ORDERED: ALPRAZolam 0.5 MG TAB PO ONE (02:00)
[2023-02-25] MEDS: LEVOTHYROXINE 88MCG TABLET (0.088 MG) PO SCH (06:00)
[2023-02-25] MEDS: MOXIFLOXACIN 400 MG TAB PO SCH (06:00)
[2023-02-25 06:22] LABS: BASO % 0.4 % (0.0-1.0); EOS # 0.1 10^3/uL (0.0-0.5); EOS % 0.8 % (0.0-3.0); HEMOGLOBIN 12.5 g/dl (12.0-15.5); LYMPH # 1.5 10^3/uL (1.5-5.0); MEAN CORPUSCULAR HEMOGLOBIN 32.4 pg (27.0-33.0); MEAN CORPUSCULAR HGB CONC 34.7 g/dl (32.0-36.5); MEAN CORPUSCULAR VOLUME 93.3 fl (80.0-96.0); MONO # 0.7 10^3/uL (0.0-0.8); MONO % 7.4 % (2.0-8.0); NEUTROPHILS # 6.9 10^3/uL (1.5-8.5); NEUTROPHILS % 75.1 % (36.0-66.0); PLATELET COUNT, AUTOMATED 252 10^3/uL (150-450); RED BLOOD COUNT 3.86 10^6/uL (4.00-5.40); WHITE BLOOD COUNT 9.2 10^3/uL (4.0-10.0)
[2023-02-25 06:56] LABS: ALBUMIN 2.9 G/DL (3.2-5.2); ALKALINE PHOSPHATASE 61 U/L (46-116); ALT/SGPT 33 U/L (7.0-40); AST/SGOT 48 U/L (<34); BILIRUBIN,TOTAL 0.6 MG/DL (0.3-1.2); BLOOD UREA NITROGEN 10 MG/DL (9-23); CALCIUM LEVEL 8.2 MG/DL (8.3-10.6); CARBON DIOXIDE LEVEL 24 MMOL/L (20-31); CHLORIDE LEVEL 108 MMOL/L (98-107); CREATININE FOR GFR 0.46 MG/DL (0.55-1.30); GLOMERULAR FILTRATION RATE > 60.0 (>39); GLUCOSE, FASTING 97 MG/DL (74-106); MAGNESIUM LEVEL 1.8 MG/DL (1.8-2.4); POTASSIUM SERUM 3.8 MMOL/L (3.5-5.1); SODIUM LEVEL 141 MMOL/L (136-145); TOTAL PROTEIN 5.7 G/DL (5.7-8.2)
[2023-02-25] MEDS: QUEtiapine FUMARATE 12.5 MG HALF-TAB PO SCH ×2 (08:34→20:25)
[2023-02-25] MEDS: levETIRAcetam 250MG TABLET (KEPPRA) PO SCH ×2 (08:34→20:24)
[2023-02-25] MEDS: guaiFENesin ER 600 MG TAB PO SCH ×2 (08:35→20:25)
[2023-02-25] MEDS: ASPIRIN 81MG ENTERIC TABLET PO SCH (08:35)
[2023-02-25] MEDS: METOPROLOL TART 25 MG TABLET PO SCH ×2 (08:36→20:25)
[2023-02-25] MEDS: ALPRAZolam 0.5 MG TAB PO PRN ×2 (11:07→19:03)
[2023-02-25 14:00] VITALS: BP 117/63
[2023-02-25] MEDS ORDERED: ISOVUE-370 76% 100ML VIAL As Ordered ONE (15:07)
[2023-02-25] MEDS: MULTIVITAMINS/MINERALS THERAP 1 TAB PO SCH (17:53)
[2023-02-25] MEDS: FOLIC ACID 1MG TAB PO SCH (17:53)
[2023-02-25 20:20] VITALS: BP 124/65
[2023-02-25 20:24] VITALS: BP 129/65
[2023-02-25] MEDS: THIAMINE 100 MG TAB PO SCH (20:24)
[2023-02-25] MEDS: SIMVASTATIN 20 MG TAB PO SCH (20:24)
[2023-02-25] MEDS ORDERED: LORazepam 2 MG TAB PO PRN (21:10)
[2023-02-26] MEDS: LEVOTHYROXINE 88MCG TABLET (0.088 MG) PO SCH (05:18)
[2023-02-26] MEDS: ALPRAZolam 0.5 MG TAB PO PRN ×2 (05:18→21:06)
[2023-02-26] MEDS: MOXIFLOXACIN 400 MG TAB PO SCH (05:18)
[2023-02-26 06:00] VITALS: BP 150/78
[2023-02-26 06:05] VITALS: BP 150/78
[2023-02-26 06:47] LABS: BASO % 0.7 % (0.0-1.0); EOS # 0.2 10^3/uL (0.0-0.5); EOS % 2.8 % (0.0-3.0); HEMATOCRIT 34.9 % (36.0-47.0); HEMOGLOBIN 11.5 g/dl (12.0-15.5); LYMPH # 1.2 10^3/uL (1.5-5.0); LYMPH % 21.6 % (24.0-44.0); MEAN CORPUSCULAR HEMOGLOBIN 31.8 pg (27.0-33.0); MEAN CORPUSCULAR VOLUME 96.4 fl (80.0-96.0); MONO # 0.5 10^3/uL (0.0-0.8); MONO % 8.1 % (2.0-8.0); NEUTROPHILS # 3.8 10^3/uL (1.5-8.5); NEUTROPHILS % 66.6 % (36.0-66.0); PLATELET COUNT, AUTOMATED 241 10^3/uL (150-450); RED BLOOD COUNT 3.62 10^6/uL (4.00-5.40); WHITE BLOOD COUNT 5.7 10^3/uL (4.0-10.0)
[2023-02-26 07:10] LABS: ALBUMIN 2.5 G/DL (3.2-5.2); ALKALINE PHOSPHATASE 59 U/L (46-116); ALT/SGPT 28 U/L (7.0-40); AST/SGOT 35 U/L (<34); BILIRUBIN,TOTAL 0.3 MG/DL (0.3-1.2); BLOOD UREA NITROGEN 13 MG/DL (9-23); CALCIUM LEVEL 7.9 MG/DL (8.3-10.6); CARBON DIOXIDE LEVEL 27 MMOL/L (20-31); CHLORIDE LEVEL 109 MMOL/L (98-107); CREATININE FOR GFR 0.53 MG/DL (0.55-1.30); GLOMERULAR FILTRATION RATE > 60.0 (>39); GLUCOSE, FASTING 88 MG/DL (74-106); MAGNESIUM LEVEL 1.7 MG/DL (1.8-2.4); POTASSIUM SERUM 3.7 MMOL/L (3.5-5.1); SODIUM LEVEL 144 MMOL/L (136-145)
[2023-02-26] MEDS ORDERED: MAGNESIUM OXIDE 400MG TAB (MAG-OX) PO ONE (07:55)
[2023-02-26] MEDS: ASPIRIN 81MG ENTERIC TABLET PO SCH (10:00)
[2023-02-26] MEDS: MULTIVITAMINS/MINERALS THERAP 1 TAB PO SCH (10:00)
[2023-02-26] MEDS: levETIRAcetam 250MG TABLET (KEPPRA) PO SCH ×2 (10:00→21:00)
[2023-02-26] MEDS: THIAMINE 100 MG TAB PO SCH ×2 (10:00→21:00)
[2023-02-26] MEDS: METOPROLOL TART 25 MG TABLET PO SCH ×2 (10:01→21:00)
[2023-02-26] MEDS: QUEtiapine FUMARATE 12.5 MG HALF-TAB PO SCH ×3 (10:01→21:00)
[2023-02-26] MEDS: FOLIC ACID 1MG TAB PO SCH (10:02)
[2023-02-26] MEDS: guaiFENesin ER 600 MG TAB PO SCH ×2 (10:02→21:00)
[2023-02-26] MEDS: FUROSEMIDE 20 MG TAB PO SCH (12:30)
[2023-02-26 14:00] VITALS: BP 100/60
[2023-02-26 21:00] VITALS: BP 116/91
[2023-02-26] MEDS: SIMVASTATIN 20 MG TAB PO SCH (21:01)
[2023-02-26 21:03] VITALS: BP 116/91
[2023-02-27] MEDS: LEVOTHYROXINE 88MCG TABLET (0.088 MG) PO SCH (05:47)
[2023-02-27] MEDS: MOXIFLOXACIN 400 MG TAB PO SCH (05:47)
[2023-02-27 05:48] VITALS: BP 122/73
[2023-02-27 06:31] LABS: BASO % 0.5 % (0.0-1.0); EOS # 0.3 10^3/uL (0.0-0.5); EOS % 4.5 % (0.0-3.0); LYMPH # 1.2 10^3/uL (1.5-5.0); LYMPH % 20.5 % (24.0-44.0); MEAN CORPUSCULAR HEMOGLOBIN 31.7 pg (27.0-33.0); MEAN CORPUSCULAR HGB CONC 33.3 g/dl (32.0-36.5); MEAN CORPUSCULAR VOLUME 95.2 fl (80.0-96.0); MONO # 0.6 10^3/uL (0.0-0.8); MONO % 9.7 % (2.0-8.0); NEUTROPHILS # 3.7 10^3/uL (1.5-8.5); NEUTROPHILS % 64.5 % (36.0-66.0); PLATELET COUNT, AUTOMATED 303 10^3/uL (150-450); RED BLOOD COUNT 3.78 10^6/uL (4.00-5.40); WHITE BLOOD COUNT 5.8 10^3/uL (4.0-10.0)
[2023-02-27 06:58] LABS: ALBUMIN 2.8 G/DL (3.2-5.2); ALKALINE PHOSPHATASE 68 U/L (46-116); ALT/SGPT 31 U/L (7.0-40); AST/SGOT 33 U/L (<34); BILIRUBIN,TOTAL 0.4 MG/DL (0.3-1.2); BLOOD UREA NITROGEN 13 MG/DL (9-23); CALCIUM LEVEL 8.3 MG/DL (8.3-10.6); CARBON DIOXIDE LEVEL 28 MMOL/L (20-31); CHLORIDE LEVEL 105 MMOL/L (98-107); CREATININE FOR GFR 0.55 MG/DL (0.55-1.30); GLOMERULAR FILTRATION RATE > 60.0 (>39); GLUCOSE, FASTING 99 MG/DL (74-106); MAGNESIUM LEVEL 1.5 MG/DL (1.8-2.4); POTASSIUM SERUM 3.9 MMOL/L (3.5-5.1); SODIUM LEVEL 140 MMOL/L (136-145); TOTAL PROTEIN 5.5 G/DL (5.7-8.2)
[2023-02-27] MEDS: FUROSEMIDE 20 MG TAB PO SCH (09:00)
[2023-02-27] MEDS: QUEtiapine FUMARATE 12.5 MG HALF-TAB PO SCH ×2 (10:57→14:56)
[2023-02-27] MEDS: MULTIVITAMINS/MINERALS THERAP 1 TAB PO SCH (10:57)
[2023-02-27] MEDS: levETIRAcetam 250MG TABLET (KEPPRA) PO SCH (10:57)
[2023-02-27] MEDS: MAG SULF 1GM/100ML (MAG RUN) 1 GM in IV 1 EA IV SCH ×2 (10:57→12:26)
[2023-02-27] MEDS: guaiFENesin ER 600 MG TAB PO SCH (10:58)
[2023-02-27] MEDS: FOLIC ACID 1MG TAB PO SCH (10:58)
[2023-02-27] MEDS: ASPIRIN 81MG ENTERIC TABLET PO SCH (10:58)
[2023-02-27] MEDS: THIAMINE 100 MG TAB PO SCH (10:58)
[2023-02-27 11:03] VITALS: BP 115/62
[2023-02-27] MEDS: METOPROLOL TART 25 MG TABLET PO SCH (11:03)
[2023-02-27] MEDS ORDERED: MOXI400T11 PO (12:07)
[2023-02-27] MEDS ORDERED: THIA100TA PO ×2 (12:07→13:11)
[2023-02-27] MEDS ORDERED: FURO20TA2 PO ×2 (12:07→13:11)
[2023-02-27] MEDS ORDERED: VITMTA PO ×2 (12:07→13:11)
[2023-02-27] MEDS ORDERED: ASPI81TAEC PO (12:07)
[2023-02-27] MEDS ORDERED: FOLI1TAB11 PO ×2 (12:07→13:11)
[2023-02-27] MEDS ORDERED: KEPP250T5 PO (12:07)
[2023-02-27] MEDS ORDERED: QUET1TAB17 PO (12:07)
[2023-02-27] MEDS ORDERED: SIMV20TA22 PO (12:07)
[2023-02-27] MEDS ORDERED: LEVO112T2 PO (12:08)
[2023-02-27] MEDS ORDERED: MAGN400T2 PO (13:11)
[2023-02-27] MEDS ORDERED: K-TA10TA2 PO (13:11)
[2023-02-27] MEDS ORDERED: SIMV40TA20 PO (13:11)
[2023-02-27 14:00] VITALS: BP 116/61
[2023-02-27] MEDS: ACETAMINOPHEN TAB 650MG DOSE (2X325MG) PO PRN (14:55)
[2023-02-27 18:07] LABS: BODY FLUID CULTURE Not indicated. (.); LEGIONELLA ANTIGEN URINE Negative (Negative); ORGANISM ID Not indicated. (.); SPECIMEN SOURCE Urine (.); URINE STREP PNEUMONIAE ANTIGEN Negative (Negative)
== END 2023-02-27 16:00 | disposition home or self-care (01) | DRG 871 ==
LOC: EDBD 08:41 → M ED 08:41 → M ED INP 12:10 → ENRESERV 13:37 → M ICU 15:59 → M MS5PR 02-24 15:51
PROVIDERS: ADMIT Internal Medicine; ATTEND Internal Medicine
PROC: B246ZZZ Ultrasonography of Right and Left Heart (ICD-10-PCS; principal; 2023-02-22)
DX: A41.9 Sepsis, unspecified organism (principal); J96.01 Acute respiratory failure with hypoxia; R65.21 Severe sepsis with septic shock; J69.0 Pneumonitis due to inhalation of food and vomit; R57.0 Cardiogenic shock; R47.01 Aphasia; I16.9 Hypertensive crisis, unspecified; E87.1 Hypo-osmolality and hyponatremia; E87.20 Acidosis, unspecified; I5A Non-ischemic myocardial injury (non-traumatic); Z68.1 Body mass index [BMI] 19.9 or less, adult; F30.9 Manic episode, unspecified; J84.9 Interstitial pulmonary disease, unspecified; R44.3 Hallucinations, unspecified; F05 Delirium due to known physiological condition; K56.7 Ileus, unspecified; E78.5 Hyperlipidemia, unspecified; I10 Essential (primary) hypertension; E89.0 Postprocedural hypothyroidism; F41.9 Anxiety disorder, unspecified; M85.80 Other specified disorders of bone density and structure, unspecified site; K59.00 Constipation, unspecified; K57.90 Diverticulosis of intestine, part unspecified, without perforation or abscess without bleeding; L71.9 Rosacea, unspecified; F10.20 Alcohol dependence, uncomplicated; I25.10 Atherosclerotic heart disease of native coronary artery without angina pectoris; R56.9 Unspecified convulsions; M19.90 Unspecified osteoarthritis, unspecified site; I65.21 Occlusion and stenosis of right carotid artery; M48.00 Spinal stenosis, site unspecified; Z87.820 Personal history of traumatic brain injury; Z86.73 Personal history of transient ischemic attack (TIA), and cerebral infarction without residual deficits; Z98.41 Cataract extraction status, right eye; Z79.890 Hormone replacement therapy; Z79.899 Other long term (current) drug therapy; Z88.8 Allergy status to other drugs, medicaments and biological substances; Z91.198 Patient's noncompliance with other medical treatment and regimen for other reason

== ENCOUNTER → 2023-03-13 | Outpatient (CLI) | payer MEDICARE, BC, OTHER ==
[~2023-03-13] MED LIST changes: +ASPI81TAEC PO; +FOLI1TAB11 PO; +FURO20TA2 PO; +K-TA10TA2 PO; +LEVE500T5 PO; +LEVO112T2 PO; +MAGN400T2 PO; +METR0.7534 TOP; +MOXI400T11 PO; +PIME1CRE TOP; +QUET1TAB17 PO; +SIMV20TA22 PO; +SIMV40TA20 PO; +THIA100TA PO; +VITMTA PO; +[UNRECOGNIZED DRUG - CODE] OU
[2023-03-13 14:16] LABS: BASO # 0.1 10^3/uL (0.0-0.2); BASO % 1.3 % (0.0-1.0); EOS # 0.1 10^3/uL (0.0-0.5); EOS % 1.3 % (0.0-3.0); HEMATOCRIT 36.9 % (36.0-47.0); HEMOGLOBIN 12.5 g/dl (12.0-15.5); LYMPH # 1.7 10^3/uL (1.5-5.0); MEAN CORPUSCULAR HEMOGLOBIN 32.7 pg (27.0-33.0); MEAN CORPUSCULAR HGB CONC 33.9 g/dl (32.0-36.5); MEAN CORPUSCULAR VOLUME 96.6 fl (80.0-96.0); MONO # 0.5 10^3/uL (0.0-0.8); MONO % 7.8 % (2.0-8.0); NEUTROPHILS # 3.6 10^3/uL (1.5-8.5); NEUTROPHILS % 60.4 % (36.0-66.0); PLATELET COUNT, AUTOMATED 340 10^3/uL (150-450); RED BLOOD COUNT 3.82 10^6/uL (4.00-5.40)
[2023-03-13 14:42] LABS: ALBUMIN 3.8 G/DL (3.2-5.2); ALKALINE PHOSPHATASE 80 U/L (46-116); ALT/SGPT 56 U/L (7.0-40); AST/SGOT 43 U/L (<34); BILIRUBIN,TOTAL 0.3 MG/DL (0.3-1.2); BLOOD UREA NITROGEN 14 MG/DL (9-23); CALCIUM LEVEL 8.8 MG/DL (8.3-10.6); CARBON DIOXIDE LEVEL 29 MMOL/L (20-31); CHLORIDE LEVEL 103 MMOL/L (98-107); FREE T4 1.41 NG/DL (0.89-1.76); GLOMERULAR FILTRATION RATE > 60.0 (>39); GLUCOSE, FASTING 86 MG/DL (74-106); MAGNESIUM LEVEL 1.9 MG/DL (1.8-2.4); SODIUM LEVEL 137 MMOL/L (136-145); THYROID STIMULATING HORMONE 1.596 uIU/ML (0.55-4.78); TOTAL PROTEIN 6.9 G/DL (5.7-8.2)
== END ==
LOC: M PLAIMG 11:02
PROVIDERS: ATTEND Family Medicine
DX: J90 Pleural effusion, not elsewhere classified (principal); E83.42 Hypomagnesemia; E87.6 Hypokalemia; I69.398 Other sequelae of cerebral infarction; J18.9 Pneumonia, unspecified organism; R53.83 Other fatigue; E03.9 Hypothyroidism, unspecified

== ENCOUNTER → 2023-03-29 | Outpatient (REF) | payer MEDICARE, OTHER | LOC: M SFHCPLAZ 12:03 | PROVIDERS: ATTEND Physician Assistant Medical | DX: F32.9 Major depressive disorder, single episode, unspecified (principal); Z53.9 Procedure and treatment not carried out, unspecified reason ==

== ENCOUNTER → 2023-03-29 | Outpatient (CLI) | payer MEDICARE, BC, OTHER ==
[2023-03-29 16:32] LABS: FREE T4 1.54 NG/DL (0.89-1.76)
[2023-03-29 16:55] LABS: THYROID STIMULATING HORMONE 0.266 uIU/ML (0.55-4.78)
== END ==
LOC: M PLALAB 12:27
PROVIDERS: ATTEND Family Medicine
DX: E03.9 Hypothyroidism, unspecified (principal)

== ENCOUNTER → 2023-05-30 | Outpatient (CLI) | payer MEDICARE, BC, OTHER ==
[~2023-05-30] MED LIST changes: -K-TA10TA2 PO; +POTA-165 PO
[2023-05-30 13:33] LABS: ALKALINE PHOSPHATASE 192 U/L (46-116); ALT/SGPT 62 U/L (7.0-40); AST/SGOT 42 U/L (<34); BILIRUBIN,TOTAL 0.5 MG/DL (0.3-1.2); BLOOD UREA NITROGEN 13 MG/DL (9-23); CALCIUM LEVEL 10.1 MG/DL (8.3-10.6); CARBON DIOXIDE LEVEL 30 MMOL/L (20-31); CHLORIDE LEVEL 100 MMOL/L (98-107); CREATININE FOR GFR 0.48 MG/DL (0.55-1.30); GLOMERULAR FILTRATION RATE > 60.0 (>39); GLUCOSE, FASTING 80 MG/DL (74-106); POTASSIUM SERUM 4.5 MMOL/L (3.5-5.1); SODIUM LEVEL 136 MMOL/L (136-145)
== END ==
LOC: M PLALAB 11:14
PROVIDERS: ATTEND Physician Assistant Medical
DX: F32.9 Major depressive disorder, single episode, unspecified (principal)

== ENCOUNTER → 2023-06-20 | Outpatient (CLI) | payer MEDICARE, BC, OTHER ==
[~2023-06-20] MED LIST changes: +AMLO25TA PO; +ATOR40TA75 PO; -ESTR10TA PO; +ESTR10TA PV; -GABA-283 PO; +GABA-284 PO; +LEXA1TAB PO; +LEXA5TAB13 PO; +LOPR1TAB6 PO; +OLAN5ZYD PO; +VIMP50TA3 PO; +XANA0.25 PO; +ZYPR2.5T2 PO; +ZYPR5TAB2 PO
[2023-06-20 18:08] LABS: BASO # 0.1 10^3/uL (0.0-0.2); BASO % 0.7 % (0.0-1.0); EOS # 0.2 10^3/uL (0.0-0.5); EOS % 2.7 % (0.0-3.0); HEMATOCRIT 37.1 % (36.0-47.0); HEMOGLOBIN 12.6 g/dl (12.0-15.5); LYMPH # 1.9 10^3/uL (1.5-5.0); LYMPH % 26.5 % (24.0-44.0); MEAN CORPUSCULAR HEMOGLOBIN 32.1 pg (27.0-33.0); MEAN CORPUSCULAR VOLUME 94.4 fl (80.0-96.0); MONO # 0.7 10^3/uL (0.0-0.8); NEUTROPHILS # 4.3 10^3/uL (1.5-8.5); PLATELET COUNT, AUTOMATED 362 10^3/uL (150-450); RED BLOOD COUNT 3.93 10^6/uL (4.00-5.40); WHITE BLOOD COUNT 7.1 10^3/uL (4.0-10.0)
[2023-06-20 18:34] LABS: ETHYL ALCOHOL (ETHANOL) < 0.003 % (0.000-0.010)
[2023-06-20 18:41] LABS: ALBUMIN 4.2 G/DL (3.2-5.2); ALKALINE PHOSPHATASE 129 U/L (46-116); ALT/SGPT 52 U/L (7.0-40); AST/SGOT 24 U/L (<34); BILIRUBIN,TOTAL 0.4 MG/DL (0.3-1.2); BLOOD UREA NITROGEN 14 MG/DL (9-23); CALCIUM LEVEL 9.5 MG/DL (8.3-10.6); CARBON DIOXIDE LEVEL 29 MMOL/L (20-31); CHLORIDE LEVEL 102 MMOL/L (98-107); CREATININE FOR GFR 0.62 MG/DL (0.55-1.30); GLOMERULAR FILTRATION RATE > 60.0 (>39); GLUCOSE, FASTING 85 MG/DL (74-106); MAGNESIUM LEVEL 1.9 MG/DL (1.8-2.4); POTASSIUM SERUM 4.5 MMOL/L (3.5-5.1); SODIUM LEVEL 137 MMOL/L (136-145); TOTAL PROTEIN 7.1 G/DL (5.7-8.2); VITAMIN B12 LEVEL 773 PG/ML (211-911)
== END ==
LOC: M PLALAB 15:19
PROVIDERS: ATTEND Physician Assistant Medical
DX: E87.1 Hypo-osmolality and hyponatremia (principal); E83.42 Hypomagnesemia; F10.931 Alcohol use, unspecified with withdrawal delirium; I10 Essential (primary) hypertension; I62.03 Nontraumatic chronic subdural hemorrhage

== ENCOUNTER → 2023-08-27 | Outpatient (CLI) | payer MEDICARE, BC, OTHER ==
[2023-08-27 13:33] LABS: BASO % 0.5 % (0.0-1.0); EOS # 0.1 10^3/uL (0.0-0.5); HEMOGLOBIN 11.9 g/dl (12.0-15.5); LYMPH # 1.9 10^3/uL (1.5-5.0); LYMPH % 31.6 % (24.0-44.0); MEAN CORPUSCULAR HEMOGLOBIN 32.1 pg (27.0-33.0); MEAN CORPUSCULAR VOLUME 94.3 fl (80.0-96.0); MONO # 0.6 10^3/uL (0.0-0.8); NEUTROPHILS # 3.4 10^3/uL (1.5-8.5); NEUTROPHILS % 56.7 % (36.0-66.0); PLATELET COUNT, AUTOMATED 262 10^3/uL (150-450); RED BLOOD COUNT 3.71 10^6/uL (4.00-5.40)
[2023-08-27 14:24] LABS: FREE T4 1.45 NG/DL (0.89-1.76)
[2023-08-27 14:26] LABS: FERRITIN 16.6 NG/ML (7.3-270.7); THYROID STIMULATING HORMONE 0.094 uIU/ML (0.55-4.78)
[2023-08-27 14:27] LABS: IRON (FE) 100 UG/DL (50-170)
[2023-08-27 14:43] LABS: ALBUMIN 3.8 G/DL (3.2-5.2); ALKALINE PHOSPHATASE 101 U/L (46-116); ALT/SGPT 85 U/L (7.0-40); AST/SGOT 38 U/L (<34); BILIRUBIN,TOTAL 0.4 MG/DL (0.3-1.2); BLOOD UREA NITROGEN 14 MG/DL (9-23); CALCIUM LEVEL 9.4 MG/DL (8.3-10.6); CARBON DIOXIDE LEVEL 31 MMOL/L (20-31); CHLORIDE LEVEL 105 MMOL/L (98-107); CREATININE FOR GFR 0.59 MG/DL (0.55-1.30); GLOMERULAR FILTRATION RATE > 60.0 (>39); GLUCOSE, FASTING 82 MG/DL (74-106); MAGNESIUM LEVEL 1.9 MG/DL (1.8-2.4); PHOSPHORUS LEVEL 4.7 MG/DL (2.4-5.1); SODIUM LEVEL 139 MMOL/L (136-145); TOTAL PROTEIN 6.9 G/DL (5.7-8.2)
== END ==
LOC: M PLALAB 11:14
PROVIDERS: ATTEND Physician Assistant Medical
DX: E87.1 Hypo-osmolality and hyponatremia (principal); E83.42 Hypomagnesemia; E03.9 Hypothyroidism, unspecified; F10.90 Alcohol use, unspecified, uncomplicated; I10 Essential (primary) hypertension; I62.03 Nontraumatic chronic subdural hemorrhage

== ENCOUNTER → 2023-10-02 | Outpatient (CLI) | payer MEDICARE, BC, OTHER ==
[2023-10-02 14:34] LABS: LIPASE 80 U/L (12-53)
[2023-10-02 14:38] LABS: ALBUMIN 3.6 G/DL (3.2-5.2); ALKALINE PHOSPHATASE 89 U/L (46-116); ALT/SGPT 52 U/L (7.0-40); AST/SGOT 42 U/L (<34); BILIRUBIN,TOTAL 0.2 MG/DL (0.3-1.2); BLOOD UREA NITROGEN 13 MG/DL (9-23); CALCIUM LEVEL 8.8 MG/DL (8.3-10.6); CARBON DIOXIDE LEVEL 28 MMOL/L (20-31); CHLORIDE LEVEL 102 MMOL/L (98-107); CREATININE FOR GFR 0.62 MG/DL (0.55-1.30); GLOMERULAR FILTRATION RATE > 60.0 (>39); GLUCOSE, FASTING 168 MG/DL (74-106); POTASSIUM SERUM 4.3 MMOL/L (3.5-5.1); SODIUM LEVEL 138 MMOL/L (136-145); TOTAL PROTEIN 6.6 G/DL (5.7-8.2)
[2023-10-02 14:41] LABS: CARCINOEMBRYONIC ANTIGEN < 2.0 NG/ML (<2.5)
[2023-10-02 14:56] LABS: CA19-9 TUMOR MARKER,CARBOHYDRA 11.1 U/ML (<35.0)
== END ==
LOC: M PLALAB 11:09
PROVIDERS: ATTEND Physician Assistant Medical
DX: R14.0 Abdominal distension (gaseous) (principal); E89.0 Postprocedural hypothyroidism; E78.2 Mixed hyperlipidemia; I10 Essential (primary) hypertension; E87.1 Hypo-osmolality and hyponatremia; F10.10 Alcohol abuse, uncomplicated; S06.9X1S Unspecified intracranial injury with loss of consciousness of 30 minutes or less, sequela; F41.1 Generalized anxiety disorder; R47.01 Aphasia; M48.061 Spinal stenosis, lumbar region without neurogenic claudication; G47.00 Insomnia, unspecified; E55.9 Vitamin D deficiency, unspecified; R19.09 Other intra-abdominal and pelvic swelling, mass and lump

== ENCOUNTER → 2023-10-05 | Outpatient (CLI) | payer MEDICARE, BC, OTHER ==
[~2023-10-05] MED LIST changes: +GASTROGRAFIN SOLUTION 30ML ONE
== END ==
LOC: M PLAIMG 09-28 11:12
PROVIDERS: ATTEND Physician Assistant Medical
DX: R14.0 Abdominal distension (gaseous) (principal); N20.0 Calculus of kidney
CPT/HCPCS: 74176; Q9963

== ENCOUNTER → 2024-01-30 | Outpatient (CLI) | payer MEDICARE, BC ==
[~2024-01-30] MED LIST changes: -GASTROGRAFIN SOLUTION 30ML ONE
== END ==
LOC: M WHC 10:10
PROVIDERS: ATTEND Nurse Practitioner Family
DX: Z12.31 Encounter for screening mammogram for malignant neoplasm of breast (principal); R92.323 Mammographic fibroglandular density, bilateral breasts

== ENCOUNTER → 2024-01-31 | Outpatient (CLI) | payer MEDICARE, BC ==
[2024-01-31 15:15] LABS: ALBUMIN 3.9 G/DL (3.2-5.2); ALKALINE PHOSPHATASE 95 U/L (46-116); ALT/SGPT 43 U/L (7.0-40); AST/SGOT 30 U/L (<34); BILIRUBIN,TOTAL 0.4 MG/DL (0.3-1.2); BLOOD UREA NITROGEN 11 MG/DL (9-23); CALCIUM LEVEL 9.2 MG/DL (8.3-10.6); CARBON DIOXIDE LEVEL 30 MMOL/L (20-31); CHLORIDE LEVEL 100 MMOL/L (98-107); CREATININE FOR GFR 0.57 MG/DL (0.55-1.30); GLOMERULAR FILTRATION RATE > 60.0 (>39); GLUCOSE, FASTING 86 MG/DL (74-106); MAGNESIUM LEVEL 1.7 MG/DL (1.8-2.4); POTASSIUM SERUM 4.8 MMOL/L (3.5-5.1); SODIUM LEVEL 134 MMOL/L (136-145); TOTAL PROTEIN 6.8 G/DL (5.7-8.2)
== END ==
LOC: M PLALAB 10:08
PROVIDERS: ATTEND Physician Assistant Medical
DX: E83.42 Hypomagnesemia (principal); E87.1 Hypo-osmolality and hyponatremia

== ENCOUNTER → 2024-02-05 | Outpatient (CLI) | payer MEDICARE, BC ==
[2024-02-05 14:14] LABS: CHOLESTEROL RISK RATIO 2.04 (<5); HDL CHOLESTEROL 86.9 MG/DL (>40); LDL CHOLESTEROL 82.7 MG/DL (<100); NON-HDL-C 91.1 MG/DL
[2024-02-05 14:19] LABS: FREE T4 1.24 NG/DL (0.89-1.76)
[2024-02-05 14:20] LABS: THYROID STIMULATING HORMONE 0.239 uIU/ML (0.55-4.78)
== END ==
LOC: M PLALAB 10:20
PROVIDERS: ATTEND Physician Assistant Medical
DX: E03.9 Hypothyroidism, unspecified (principal); E78.2 Mixed hyperlipidemia

== ENCOUNTER → 2024-04-09 | Outpatient (CLI) | payer MEDICARE, BC ==
[~2024-04-09] MED LIST changes: +FLUO-290 PO; -FLUO10CA18 PO; -METR0.7534 TOP; +METR60GE3 TOP
[2024-04-09 12:52] LABS: BASO % 0.5 % (0.0-1.0); EOS # 0.1 10^3/uL (0.0-0.5); EOS % 1.5 % (0.0-3.0); HEMATOCRIT 35.4 % (36.0-47.0); HEMOGLOBIN 12.3 g/dl (12.0-15.5); LYMPH # 1.6 10^3/uL (1.5-5.0); MEAN CORPUSCULAR HEMOGLOBIN 32.6 pg (27.0-33.0); MEAN CORPUSCULAR HGB CONC 34.7 g/dl (32.0-36.5); MEAN CORPUSCULAR VOLUME 93.9 fl (80.0-96.0); MONO # 0.7 10^3/uL (0.0-0.8); MONO % 12.3 % (2.0-8.0); NEUTROPHILS # 3.5 10^3/uL (1.5-8.5); NEUTROPHILS % 58.5 % (36.0-66.0); PLATELET COUNT, AUTOMATED 241 10^3/uL (150-450); RED BLOOD COUNT 3.77 10^6/uL (4.00-5.40); WHITE BLOOD COUNT 5.9 10^3/uL (4.0-10.0)
[2024-04-09 13:14] LABS: THYROID STIMULATING HORMONE 0.434 uIU/ML (0.55-4.78)
[2024-04-09 13:15] LABS: FREE T4 1.19 NG/DL (0.89-1.76)
[2024-04-09 13:16] LABS: VITAMIN B12 LEVEL 558 PG/ML (211-911)
[2024-04-09 13:17] LABS: ALBUMIN 3.7 G/DL (3.2-5.2); ALKALINE PHOSPHATASE 75 U/L (46-116); ALT/SGPT 30 U/L (7.0-40); AST/SGOT 21 U/L (<34); BILIRUBIN,TOTAL 0.4 MG/DL (0.3-1.2); BLOOD UREA NITROGEN 11 MG/DL (9-23); CALCIUM LEVEL 9.2 MG/DL (8.3-10.6); CARBON DIOXIDE LEVEL 29 MMOL/L (20-31); CHLORIDE LEVEL 100 MMOL/L (98-107); CREATININE FOR GFR 0.57 MG/DL (0.55-1.30); GLOMERULAR FILTRATION RATE > 60.0 (>39); GLUCOSE, FASTING 84 MG/DL (74-106); MAGNESIUM LEVEL 1.7 MG/DL (1.8-2.4); POTASSIUM SERUM 4.8 MMOL/L (3.5-5.1); SODIUM LEVEL 133 MMOL/L (136-145); TOTAL PROTEIN 6.8 G/DL (5.7-8.2)
== END ==
LOC: M PLALAB 10:21
PROVIDERS: ATTEND Physician Assistant Medical
DX: E83.42 Hypomagnesemia (principal); E87.1 Hypo-osmolality and hyponatremia; I10 Essential (primary) hypertension; E03.9 Hypothyroidism, unspecified; F41.1 Generalized anxiety disorder

== ENCOUNTER 2024-05-30 09:46 | Emergency (ER) | payer MEDICARE, BC ==
[~2024-05-30] VITALS: Ht 167.6 cm; Wt 55.9 kg
[2024-05-30 09:47] VITALS: TEMP 96.6
[2024-05-30 11:13] LABS: BASO % 0.5 % (0.0-1.0); EOS # 0.1 10^3/uL (0.0-0.5); EOS % 1.3 % (0.0-3.0); HEMATOCRIT 36.3 % (36.0-47.0); HEMOGLOBIN 12.8 g/dl (12.0-15.5); LYMPH # 1.5 10^3/uL (1.5-5.0); LYMPH % 23.5 % (24.0-44.0); MEAN CORPUSCULAR HEMOGLOBIN 33.2 pg (27.0-33.0); MEAN CORPUSCULAR HGB CONC 35.3 g/dl (32.0-36.5); MONO # 0.7 10^3/uL (0.0-0.8); MONO % 10.6 % (2.0-8.0); NEUTROPHILS % 63.8 % (36.0-66.0); PLATELET COUNT, AUTOMATED 256 10^3/uL (150-450); RED BLOOD COUNT 3.86 10^6/uL (4.00-5.40); WHITE BLOOD COUNT 6.3 10^3/uL (4.0-10.0)
[2024-05-30 11:32] LABS: INR 0.96; PARTIAL THROMBOPLASTIN TIME 33.7 SECONDS (24.8-34.2); PROTHROMBIN TIME 12.5 SECONDS (12.5-14.5)
[2024-05-30 11:33] LABS: ETHYL ALCOHOL (ETHANOL) < 0.003 % (0.000-0.010); LIPASE 95 U/L (12-53)
[2024-05-30 11:34] LABS: ALBUMIN 4.1 G/DL (3.2-5.2); ALKALINE PHOSPHATASE 77 U/L (46-116); ALT/SGPT 35 U/L (7.0-40); AST/SGOT 24 U/L (<34); BILIRUBIN,DIRECT < 0.1 MG/DL (<0.4); BILIRUBIN,TOTAL 0.4 MG/DL (0.3-1.2); BLOOD UREA NITROGEN 12 MG/DL (9-23); CALCIUM LEVEL 8.9 MG/DL (8.3-10.6); CARBON DIOXIDE LEVEL 29 MMOL/L (20-31); CHLORIDE LEVEL 98 MMOL/L (98-107); CREATININE FOR GFR 0.56 MG/DL (0.55-1.30); GLOMERULAR FILTRATION RATE > 60.0 (>39); GLUCOSE, FASTING 91 MG/DL (74-106); POTASSIUM SERUM 4.6 MMOL/L (3.5-5.1); SODIUM LEVEL 130 MMOL/L (136-145)
[2024-05-30 11:38] LABS: CK-MB VALUE MASS 4.2 NG/ML (<3.6)
[2024-05-30 11:40] LABS: SALICYLATE LEVEL < 3.0 MG/DL (<30)
[2024-05-30 11:41] LABS: FREE T4 1.18 NG/DL (0.89-1.76)
[2024-05-30 11:42] LABS: THYROID STIMULATING HORMONE 0.625 uIU/ML (0.55-4.78)
[2024-05-30 11:43] LABS: CPK CREATINE PHOSPHOKINASE 166 U/L (34-145); MB/CK RELATIVE INDEX 2.53 (< OR =4)
[2024-05-30 12:41] LABS: CK-MB VALUE MASS 4.3 NG/ML (<3.6); MB/CK RELATIVE INDEX 1.81 (< OR =4)
[2024-05-30] MEDS ORDERED: hydrALAZINE 20MG/ML 1ML VIAL IV ONE (13:25)
[2024-05-30 14:03] VITALS: BP 195/92
[2024-05-30] MEDS: hydrALAZINE 20MG/ML 1ML VIAL IV STA (14:03)
[2024-05-30 15:00] VITALS: BP 184/82; O2SAT 98
== END 2024-05-30 15:15 | disposition home or self-care (01) ==
LOC: M ED 09:46
DX: S06.0X0A Concussion without loss of consciousness, initial encounter (principal); I10 Essential (primary) hypertension; Y92.9 Unspecified place or not applicable; Y93.9 Activity, unspecified; Y99.9 Unspecified external cause status; W19.XXXA Unspecified fall, initial encounter; I25.2 Old myocardial infarction; R00.1 Bradycardia, unspecified; F10.10 Alcohol abuse, uncomplicated; Z87.891 Personal history of nicotine dependence; Z88.8 Allergy status to other drugs, medicaments and biological substances; Z79.1 Long term (current) use of non-steroidal anti-inflammatories (NSAID); Z79.810 Long term (current) use of selective estrogen receptor modulators (SERMs); Z79.899 Other long term (current) drug therapy
CPT/HCPCS: 70450; 71045; 80047; 80048; 80076; 80143; 82077; 82550; 82553; 83690; 84439; 84443; 84484; 85025; 85610; 85730; 93005; 93041; 94760; 96374; 99285; J0360

== ENCOUNTER 2024-06-02 08:10 | Inpatient (IN) | payer MEDICARE, BC ==
[~2024-06-02] VITALS: Ht 165.1 cm; Wt 54.8 kg
[2024-06-02 09:35] LABS: BASO % 0.1 % (0.0-1.0); HEMATOCRIT 35.3 % (36.0-47.0); HEMOGLOBIN 12.4 g/dl (12.0-15.5); LYMPH # 0.7 10^3/uL (1.5-5.0); LYMPH % 8.6 % (24.0-44.0); MEAN CORPUSCULAR HGB CONC 35.1 g/dl (32.0-36.5); MEAN CORPUSCULAR VOLUME 93.9 fl (80.0-96.0); MONO # 0.6 10^3/uL (0.0-0.8); MONO % 6.8 % (2.0-8.0); NEUTROPHILS # 7.2 10^3/uL (1.5-8.5); NEUTROPHILS % 84.3 % (36.0-66.0); PLATELET COUNT, AUTOMATED 249 10^3/uL (150-450); RED BLOOD COUNT 3.76 10^6/uL (4.00-5.40); WHITE BLOOD COUNT 8.6 10^3/uL (4.0-10.0)
[2024-06-02 09:46] LABS: INR 1.06; PROTHROMBIN TIME 13.5 SECONDS (12.5-14.5)
[2024-06-02 10:08] LABS: ETHYL ALCOHOL (ETHANOL) < 0.003 % (0.000-0.010)
[2024-06-02 10:10] LABS: ALBUMIN 3.9 G/DL (3.2-5.2); ALKALINE PHOSPHATASE 75 U/L (46-116); ALT/SGPT 33 U/L (7.0-40); AST/SGOT 44 U/L (<34); BILIRUBIN,DIRECT 0.1 MG/DL (<0.4); BILIRUBIN,TOTAL 0.6 MG/DL (0.3-1.2); BLOOD UREA NITROGEN 9 MG/DL (9-23); CALCIUM LEVEL 9.1 MG/DL (8.3-10.6); CARBON DIOXIDE LEVEL 24 MMOL/L (20-31); CHLORIDE LEVEL 96 MMOL/L (98-107); CREATININE FOR GFR 0.44 MG/DL (0.55-1.30); GLOMERULAR FILTRATION RATE > 60.0 (>39); GLUCOSE, FASTING 125 MG/DL (74-106); POTASSIUM SERUM 4.1 MMOL/L (3.5-5.1); SALICYLATE LEVEL < 3.0 MG/DL (<30); SODIUM LEVEL 126 MMOL/L (136-145); TOTAL PROTEIN 7.1 G/DL (5.7-8.2)
[2024-06-02 10:21] LABS: FREE T4 1.06 NG/DL (0.89-1.76); THYROID STIMULATING HORMONE 1.004 uIU/ML (0.55-4.78)
[2024-06-02 11:33] LABS: AMPHETAMINES LEVEL URINE NEGATIVE (NEGATIVE); BARBITURATES URINE NEGATIVE (NEGATIVE); BENZODIAZEPINES URINE NEGATIVE (NEGATIVE); CANNABINOIDS URINE NEGATIVE (NEGATIVE); COCAINE METABOLITE URINE NEGATIVE (NEGATIVE); METHADONE URINE NEGATIVE (NEGATIVE); OPIATES URINE NEGATIVE (NEGATIVE); PHENCYCLIDINE URINE NEGATIVE (NEGATIVE)
[2024-06-02] MEDS ORDERED: MOM 30ML SUSPENSION UDC PO PRN (17:05)
[2024-06-02] MEDS ORDERED: ACETAMINOPHEN TAB 650MG DOSE (2X325MG) PO PRN (17:05)
[2024-06-02] MEDS ORDERED: LACO100T PO (17:11)
[2024-06-02] MEDS ORDERED: LEXA1TAB2 PO (17:11)
[2024-06-02] MEDS ORDERED: MULT-90 PO (17:11)
[2024-06-02] MEDS ORDERED: ASPI81CH33 PO (17:11)
[2024-06-02] MEDS ORDERED: METO50TA7 PO (17:11)
[2024-06-02] MEDS ORDERED: ALPR0.5T3 PO (17:11)
[2024-06-02] MEDS ORDERED: HOME MED LIST COMPLETE! XX SCH (17:15)
[2024-06-02] MEDS: DEXTROSE 50% 50ML SYRINGE IV ONE (17:17)
[2024-06-02] MEDS: THIAMINE INJection 500 MG in NS 100 ML IV SCH (17:17)
[2024-06-02] MEDS ORDERED: LORazepam 2 MG TAB PO PRN (17:20)
[2024-06-02] MEDS ORDERED: ESTRADIOL 10 MCG PV SCH (17:25)
[2024-06-02 19:21] LABS: OSMOLALITY URINE 608 MOSM/KG (50-1400)
[2024-06-02] MEDS: DOCUSATE SODIUM 100MG CAPSULE PO SCH (21:00)
[2024-06-02] MEDS: LACOSAMIDE 50 MG TAB (VIMPAT) PO SCH (21:56)
[2024-06-02] MEDS: METOPROLOL TART 50 MG TAB PO SCH (21:56)
[2024-06-02] MEDS: ATORVASTATIN 20 MG TAB PO SCH (21:57)
[2024-06-02] MEDS: ALPRAZolam 0.5 MG TAB PO SCH (21:57)
[2024-06-02] MEDS: CAPTOpril 6.25 MG PER 1/2 TABLET PO SCH (22:33)
[2024-06-03] MEDS: DEXTROSE 50% 50ML SYRINGE IV ONE (01:53)
[2024-06-03] MEDS: LEVOTHYROXINE 112MCG TABLET (0.112MG) PO SCH (06:39)
[2024-06-03] MEDS: MULTIVITAMINS/MINERALS THERAP 1 TAB PO SCH (08:44)
[2024-06-03] MEDS: ASPIRIN 81MG CHEW TABLET PO SCH (08:44)
[2024-06-03 08:45] VITALS: BP 115/73
[2024-06-03] MEDS: ESCITALOPRAM OXALATE 10 MG TAB (LEXAPRO) PO SCH (08:45)
[2024-06-03] MEDS: FOLIC ACID 1MG TAB PO SCH (08:45)
[2024-06-03] MEDS: VITAMIN D 1,000 INTERNATIONAL UNITS TABLET PO SCH (08:45)
[2024-06-03 08:46] LABS: BLOOD UREA NITROGEN 9 MG/DL (9-23); CALCIUM LEVEL 9.2 MG/DL (8.3-10.6); CARBON DIOXIDE LEVEL 28 MMOL/L (20-31); CHLORIDE LEVEL 96 MMOL/L (98-107); GLOMERULAR FILTRATION RATE > 60.0 (>39); GLUCOSE, FASTING 123 MG/DL (74-106); POTASSIUM SERUM 3.8 MMOL/L (3.5-5.1); SODIUM LEVEL 128 MMOL/L (136-145)
[2024-06-03] MEDS: ENOXAPARIN 40MG/0.4ML SYRINGE (J1650 PER 10MG) SC SCH (08:46)
[2024-06-03 08:47] LABS: VITAMIN B12 LEVEL 519 PG/ML (211-911)
[2024-06-03] MEDS ORDERED: VIMP100T PO (13:44)
[2024-06-03] MEDS ORDERED: SODI1TAB12 PO (13:44)
[2024-06-03] MEDS ORDERED: THIA100T7 PO (14:27)
[2024-06-03] MEDS ORDERED: DEPA250T32 PO (14:27)
[2024-06-03 15:47] VITALS: BP 172/84
[2024-06-03 16:17] VITALS: TEMP 98.5; O2SAT 98
[2024-06-03] MEDS ORDERED: CAPT31TA PO (18:51)
== END 2024-06-03 17:00 | disposition home or self-care (01) | DRG 886 ==
LOC: M ED 08:10 → M ED INP 16:03
PROVIDERS: ADMIT Student in an Organized Health Care Education/Training Program; ATTEND Student in an Organized Health Care Education/Training Program
DX: F80.2 Mixed receptive-expressive language disorder (principal); F10.288 Alcohol dependence with other alcohol-induced disorder; E87.1 Hypo-osmolality and hyponatremia; E51.8 Other manifestations of thiamine deficiency; G40.909 Epilepsy, unspecified, not intractable, without status epilepticus; I10 Essential (primary) hypertension; Z87.891 Personal history of nicotine dependence; Z88.8 Allergy status to other drugs, medicaments and biological substances; Z79.1 Long term (current) use of non-steroidal anti-inflammatories (NSAID); Z79.810 Long term (current) use of selective estrogen receptor modulators (SERMs); Z79.899 Other long term (current) drug therapy; E78.5 Hyperlipidemia, unspecified; Z87.820 Personal history of traumatic brain injury; E03.9 Hypothyroidism, unspecified; F41.9 Anxiety disorder, unspecified; M85.88 Other specified disorders of bone density and structure, other site; M19.90 Unspecified osteoarthritis, unspecified site; M48.00 Spinal stenosis, site unspecified; Z98.41 Cataract extraction status, right eye; Z90.79 Acquired absence of other genital organ(s)

== ENCOUNTER → 2024-09-15 | Outpatient (CLI) | payer MEDICARE, BC ==
[~2024-09-15] MED LIST changes: +ALPR0.5T3 PO; +ASPI81CH33 PO; +CAPT31TA PO; +DEPA250T32 PO; +LACO100T PO; +LEXA1TAB2 PO; +METO50TA7 PO; +MULT-90 PO; +PETR3.5O OU; -REFROIN OU; +SODI1TAB12 PO; +THIA100T7 PO; +VIMP100T PO
[2024-09-15 13:14] LABS: BASO % 0.4 % (0.0-1.0); EOS % 0.8 % (0.0-3.0); HEMATOCRIT 33.7 % (36.0-47.0); HEMOGLOBIN 11.5 g/dl (12.0-15.5); LYMPH # 1.4 10^3/uL (1.5-5.0); LYMPH % 27.5 % (24.0-44.0); MEAN CORPUSCULAR HEMOGLOBIN 32.6 pg (27.0-33.0); MEAN CORPUSCULAR HGB CONC 34.1 g/dl (32.0-36.5); MEAN CORPUSCULAR VOLUME 95.5 fl (80.0-96.0); MONO # 0.6 10^3/uL (0.0-0.8); MONO % 11.2 % (2.0-8.0); NEUTROPHILS # 3.1 10^3/uL (1.5-8.5); NEUTROPHILS % 59.9 % (36.0-66.0); PLATELET COUNT, AUTOMATED 276 10^3/uL (150-450); RED BLOOD COUNT 3.53 10^6/uL (4.00-5.40); WHITE BLOOD COUNT 5.2 10^3/uL (4.0-10.0)
[2024-09-15 13:19] LABS: ALBUMIN 3.6 G/DL (3.2-5.2); ALKALINE PHOSPHATASE 85 U/L (35-104); ALT/SGPT 46 U/L (7.0-40); AST/SGOT 31 U/L (<34); BILIRUBIN,TOTAL 0.4 MG/DL (0.3-1.2); BLOOD UREA NITROGEN 13 MG/DL (9-23); CALCIUM LEVEL 9.4 MG/DL (8.3-10.6); CARBON DIOXIDE LEVEL 30 MMOL/L (20-31); CHLORIDE LEVEL 103 MMOL/L (98-107); CHOLESTEROL LEVEL 184 MG/DL (<200); CHOLESTEROL RISK RATIO 1.93 (<5); CREATININE FOR GFR 0.56 MG/DL (0.55-1.30); GLOMERULAR FILTRATION RATE > 60.0 (>39); GLUCOSE, FASTING 83 MG/DL (74-106); HDL CHOLESTEROL 95.2 MG/DL (>40); NON-HDL-C 88.8 MG/DL; POTASSIUM SERUM 4.7 MMOL/L (3.5-5.1); SODIUM LEVEL 135 MMOL/L (136-145); TRIGLYCERIDES LEVEL 39 MG/DL (<150)
== END ==
LOC: M PLALAB 10:20
PROVIDERS: ATTEND Physician Assistant Medical
DX: M48.061 Spinal stenosis, lumbar region without neurogenic claudication (principal); E87.1 Hypo-osmolality and hyponatremia; E78.2 Mixed hyperlipidemia; I10 Essential (primary) hypertension; I62.03 Nontraumatic chronic subdural hemorrhage; Z86.73 Personal history of transient ischemic attack (TIA), and cerebral infarction without residual deficits

== ENCOUNTER 2024-09-29 10:19 | Inpatient (IN) | payer MEDICARE, BC ==
[~2024-09-29] VITALS: Ht 170.2 cm; Wt 58.0 kg
[2024-09-29] VITALS (8 sets, daily range): BP systolic 158–164; BP diastolic 72–76; TEMP 97.1–101.1; O2SAT 93–98
[2024-09-29] MEDS ORDERED: ISOVUE-370 76% 100ML VIAL As Ordered ONE (10:31)
[2024-09-29 11:18] LABS: BASO % 0.2 % (0.0-1.0); HEMATOCRIT 29.4 % (36.0-47.0); HEMOGLOBIN 10.5 g/dl (12.0-15.5); LYMPH # 0.8 10^3/uL (1.5-5.0); LYMPH % 9.5 % (24.0-44.0); MEAN CORPUSCULAR HEMOGLOBIN 33.3 pg (27.0-33.0); MEAN CORPUSCULAR HGB CONC 35.7 g/dl (32.0-36.5); MEAN CORPUSCULAR VOLUME 93.3 fl (80.0-96.0); MONO # 0.7 10^3/uL (0.0-0.8); MONO % 7.6 % (2.0-8.0); NEUTROPHILS % 82.3 % (36.0-66.0); PLATELET COUNT, AUTOMATED 249 10^3/uL (150-450); RED BLOOD COUNT 3.15 10^6/uL (4.00-5.40); WHITE BLOOD COUNT 8.5 10^3/uL (4.0-10.0)
[2024-09-29] MEDS: NS 500 ML IV ONE (11:25)
[2024-09-29 11:35] LABS: INR 0.98; PROTHROMBIN TIME 13.2 SECONDS (12.5-14.5)
[2024-09-29 11:40] LABS: CK-MB VALUE MASS 15.7 NG/ML (<3.6); ETHYL ALCOHOL (ETHANOL) 0.004 % (0.000-0.010)
[2024-09-29 11:41] LABS: VALPROIC ACID (DEPAKOTE) < 3.0 UG/ML (50.0-100.0)
[2024-09-29 11:42] LABS: SALICYLATE LEVEL < 3.0 MG/DL (<30)
[2024-09-29 11:43] LABS: CPK CREATINE PHOSPHOKINASE 583 U/L (34-145); MB/CK RELATIVE INDEX 2.69 (< OR =4)
[2024-09-29 11:44] LABS: FREE T4 1.24 NG/DL (0.89-1.76)
[2024-09-29 11:45] LABS: THYROID STIMULATING HORMONE 0.655 uIU/ML (0.55-4.78)
[2024-09-29 11:47] LABS: ALBUMIN 3.3 G/DL (3.2-5.2); ALKALINE PHOSPHATASE 72 U/L (35-104); ALT/SGPT 45 U/L (7.0-40); AST/SGOT 41 U/L (<34); BILIRUBIN,DIRECT 0.1 MG/DL (<0.4); BILIRUBIN,TOTAL 0.4 MG/DL (0.3-1.2); BLOOD UREA NITROGEN 10 MG/DL (9-23); CALCIUM LEVEL 8.2 MG/DL (8.3-10.6); CARBON DIOXIDE LEVEL 25 MMOL/L (20-31); CHLORIDE LEVEL 99 MMOL/L (98-107); CREATININE FOR GFR 0.46 MG/DL (0.55-1.30); GLOMERULAR FILTRATION RATE > 60.0 (>39); GLUCOSE, FASTING 124 MG/DL (74-106); SODIUM LEVEL 128 MMOL/L (136-145); TOTAL PROTEIN 6.3 G/DL (5.7-8.2)
[2024-09-29 12:18] LABS: OSMOLALITY SERUM 274 MOSM/KG (280-301)
[2024-09-29 12:30] LABS: CK-MB VALUE MASS 16.7 NG/ML (<3.6)
[2024-09-29 12:36] LABS: MB/CK RELATIVE INDEX 2.56 (< OR =4)
[2024-09-29 14:39] LABS: CK-MB VALUE MASS 15.9 NG/ML (<3.6)
[2024-09-29 14:42] LABS: MB/CK RELATIVE INDEX 2.46 (< OR =4)
[2024-09-29] MEDS ORDERED: ECOT81TA5 PO (14:44)
[2024-09-29] MEDS ORDERED: HOME MED LIST COMPLETE! XX SCH (14:45)
[2024-09-29] MEDS ORDERED: GLUCAGON INJ 1MG VIAL SC PRN (17:45)
[2024-09-29] MEDS ORDERED: GLUCOSE 4 GM CHEW PO PRN (17:45)
[2024-09-29 18:00] LABS: BASO % 0.1 % (0.0-1.0); HEMOGLOBIN 11.4 g/dl (12.0-15.5); LYMPH % 11.8 % (24.0-44.0); MEAN CORPUSCULAR HEMOGLOBIN 32.6 pg (27.0-33.0); MEAN CORPUSCULAR HGB CONC 35.6 g/dl (32.0-36.5); MEAN CORPUSCULAR VOLUME 91.4 fl (80.0-96.0); MONO # 0.7 10^3/uL (0.0-0.8); MONO % 8.2 % (2.0-8.0); NEUTROPHILS # 6.8 10^3/uL (1.5-8.5); NEUTROPHILS % 79.7 % (36.0-66.0); PLATELET COUNT, AUTOMATED 267 10^3/uL (150-450); WHITE BLOOD COUNT 8.5 10^3/uL (4.0-10.0)
[2024-09-29 18:08] LABS: HEMOGLOBIN A1c 5.2 % (4.0-6.0)
[2024-09-29 18:09] LABS: INR 0.97; PARTIAL THROMBOPLASTIN TIME 31.1 SECONDS (24.8-34.2); PROTHROMBIN TIME 13.2 SECONDS (12.5-14.5)
[2024-09-29 18:13] LABS: ERYTHROCYTE SEDIMENTATION RATE 21 mm/hr (0-30)
[2024-09-29] MEDS: ASPIRIN 300 MG SUPP PR ONE (18:16)
[2024-09-29] MEDS: NS 1,000 ML IV SCH (18:16)
[2024-09-29 18:21] LABS: C REACTIVE PROTEIN QUANTITATIV < 0.40 MG/DL (<1.0); CREATININE FOR GFR 0.44 MG/DL (0.55-1.30); GLOMERULAR FILTRATION RATE > 60.0 (>39)
[2024-09-29 18:22] LABS: CPK CREATINE PHOSPHOKINASE 628 U/L (34-145)
[2024-09-29 18:25] LABS: ALBUMIN 3.6 G/DL (3.2-5.2); ALKALINE PHOSPHATASE 81 U/L (35-104); ALT/SGPT 48 U/L (7.0-40); AST/SGOT 41 U/L (<34); BILIRUBIN,DIRECT 0.2 MG/DL (<0.4); BILIRUBIN,TOTAL 0.6 MG/DL (0.3-1.2); BLOOD UREA NITROGEN 9 MG/DL (9-23); CALCIUM LEVEL 8.8 MG/DL (8.3-10.6); CARBON DIOXIDE LEVEL 24 MMOL/L (20-31); CHLORIDE LEVEL 100 MMOL/L (98-107); CHOLESTEROL LEVEL 193 MG/DL (<200); CHOLESTEROL RISK RATIO 2.08 (<5); CK-MB VALUE MASS 13.5 NG/ML (<3.6); CREATININE FOR GFR 0.43 MG/DL (0.55-1.30); GLOMERULAR FILTRATION RATE > 60.0 (>39); GLUCOSE, FASTING 123 MG/DL (74-106); HDL CHOLESTEROL 92.5 MG/DL (>40); LDL CHOLESTEROL 91.3 MG/DL (<100); MB/CK RELATIVE INDEX 2.14 (< OR =4); NON-HDL-C 100.5 MG/DL; POTASSIUM SERUM 3.8 MMOL/L (3.5-5.1); SODIUM LEVEL 130 MMOL/L (136-145); TOTAL PROTEIN 7.2 G/DL (5.7-8.2); TRIGLYCERIDES LEVEL 46 MG/DL (<150)
[2024-09-29] MEDS: ATORVASTATIN 20 MG TAB PO SCH (20:04)
[2024-09-29] MEDS: ALPRAZolam 0.5 MG TAB PO SCH (20:04)
[2024-09-29] MEDS: LACOSAMIDE 10MG/ML 20ML VIAL (VIMPAT) IV SCH (21:47)
[2024-09-29] MEDS: ACETAMINOPHEN 650MG SUPP PR ONE (22:13)
[2024-09-30] VITALS (30 sets, daily range): BP systolic 158–180; BP diastolic 62–88; TEMP 96.8–99.8; O2SAT 95–99
[2024-09-30] MEDS: LEVOTHYROXINE 112MCG TABLET (0.112MG) PO SCH (05:03)
[2024-09-30 06:27] LABS: CHOLESTEROL RISK RATIO 2.03 (<5); HDL CHOLESTEROL 95.1 MG/DL (>40); LDL CHOLESTEROL 89.5 MG/DL (<100); NON-HDL-C 98.9 MG/DL
[2024-09-30] MEDS ORDERED: ASPIRIN 300 MG SUPP PR SCH (09:00)
[2024-09-30] MEDS: PANTOPRAZOLE 40MG VIAL IV SCH (09:23)
[2024-09-30] MEDS: ESCITALOPRAM OXALATE 10 MG TAB (LEXAPRO) PO SCH (09:23)
[2024-09-30] MEDS: ASPIRIN 81MG ENTERIC TABLET PO SCH (09:24)
[2024-09-30] MEDS ORDERED: ACETAMINOPHEN 325 MG TAB PO PRN (15:35)
[2024-09-30] MEDS: THIAMINE 100 MG TAB PO ONE (15:48)
[2024-09-30 16:53] LABS: HEMATOCRIT 34.7 % (36.0-47.0); HEMOGLOBIN 12.2 g/dl (12.0-15.5); MEAN CORPUSCULAR HEMOGLOBIN 32.6 pg (27.0-33.0); MEAN CORPUSCULAR HGB CONC 35.2 g/dl (32.0-36.5); MEAN CORPUSCULAR VOLUME 92.8 fl (80.0-96.0); PLATELET COUNT, AUTOMATED 274 10^3/uL (150-450); RED BLOOD COUNT 3.74 10^6/uL (4.00-5.40); WHITE BLOOD COUNT 7.6 10^3/uL (4.0-10.0)
[2024-09-30 17:16] LABS: BLOOD UREA NITROGEN 9 MG/DL (9-23); CALCIUM LEVEL 8.8 MG/DL (8.3-10.6); CARBON DIOXIDE LEVEL 25 MMOL/L (20-31); CHLORIDE LEVEL 104 MMOL/L (98-107); CREATININE FOR GFR 0.49 MG/DL (0.55-1.30); GLOMERULAR FILTRATION RATE > 60.0 (>39); GLUCOSE, FASTING 107 MG/DL (74-106); POTASSIUM SERUM 3.8 MMOL/L (3.5-5.1); SODIUM LEVEL 133 MMOL/L (136-145)
[2024-09-30] MEDS: LACOSAMIDE 50 MG TAB (VIMPAT) PO SCH (20:12)
[2024-09-30] MEDS: METOPROLOL TART 50 MG TAB PO SCH (20:12)
[2024-10-01] VITALS (19 sets, daily range): BP systolic 143–188; BP diastolic 63–84; TEMP 97.1–98.6; O2SAT 95–99
[2024-10-01] MEDS: THIAMINE 100 MG TAB PO SCH (08:38)
[2024-10-01] MEDS: PANTOPRAZOLE 40MG TAB (PROTONIX) PO SCH (08:39)
[2024-10-01 09:15] LABS: HEMATOCRIT 37.9 % (36.0-47.0); MEAN CORPUSCULAR HEMOGLOBIN 31.8 pg (27.0-33.0); MEAN CORPUSCULAR HGB CONC 34.3 g/dl (32.0-36.5); MEAN CORPUSCULAR VOLUME 92.7 fl (80.0-96.0); PLATELET COUNT, AUTOMATED 292 10^3/uL (150-450); RED BLOOD COUNT 4.09 10^6/uL (4.00-5.40); WHITE BLOOD COUNT 7.9 10^3/uL (4.0-10.0)
[2024-10-01 09:39] LABS: BLOOD UREA NITROGEN 9 MG/DL (9-23); CALCIUM LEVEL 8.8 MG/DL (8.3-10.6); CARBON DIOXIDE LEVEL 27 MMOL/L (20-31); CHLORIDE LEVEL 101 MMOL/L (98-107); CREATININE FOR GFR 0.47 MG/DL (0.55-1.30); GLOMERULAR FILTRATION RATE > 60.0 (>39); GLUCOSE, FASTING 186 MG/DL (74-106); POTASSIUM SERUM 3.5 MMOL/L (3.5-5.1); SODIUM LEVEL 133 MMOL/L (136-145)
[2024-10-01] MEDS ORDERED: LIDOCAINE 1% MDV 20ML VIAL As Ordered ONE (13:35)
[2024-10-01 15:24] LABS: HEPATITIS B SURFACE ANTIBODY NEGATIVE (POSITIVE)
[2024-10-01 15:35] LABS: HEPATITIS B SURFACE ANTIGEN NEGATIVE (NEGATIVE)
[2024-10-01 15:56] LABS: HEPATITIS C VIRUS ABY INDEX 0.03 INDEX (<0.8)
[2024-10-01 15:57] LABS: HEPATITIS B CORE ANTIBODY IGM NEGATIVE (NEGATIVE)
[2024-10-01] MEDS: amLODIPine 5 MG TAB PO SCH (16:59)
[2024-10-02] VITALS (7 sets, daily range): BP systolic 139–189; BP diastolic 68–90; TEMP 97.2–97.9; O2SAT 96–99
[2024-10-02 07:06] LABS: HEMATOCRIT 38.4 % (36.0-47.0); HEMOGLOBIN 13.1 g/dl (12.0-15.5); MEAN CORPUSCULAR HEMOGLOBIN 31.7 pg (27.0-33.0); MEAN CORPUSCULAR HGB CONC 34.1 g/dl (32.0-36.5); PLATELET COUNT, AUTOMATED 306 10^3/uL (150-450); RED BLOOD COUNT 4.13 10^6/uL (4.00-5.40); WHITE BLOOD COUNT 8.2 10^3/uL (4.0-10.0)
[2024-10-02 07:40] LABS: BLOOD UREA NITROGEN 9 MG/DL (9-23); CALCIUM LEVEL 9.2 MG/DL (8.3-10.6); CARBON DIOXIDE LEVEL 29 MMOL/L (20-31); CHLORIDE LEVEL 100 MMOL/L (98-107); CREATININE FOR GFR 0.46 MG/DL (0.55-1.30); GLOMERULAR FILTRATION RATE > 60.0 (>39); GLUCOSE, FASTING 107 MG/DL (74-106); POTASSIUM SERUM 3.9 MMOL/L (3.5-5.1); SODIUM LEVEL 134 MMOL/L (136-145)
[2024-10-02] MEDS ORDERED: NALT50TA4 PO (14:20)
[2024-10-02] MEDS ORDERED: THIA100TA PO (14:20)
[2024-10-02] MEDS ORDERED: AMLO1TAB24 PO (14:20)
== END 2024-10-02 15:56 | disposition home health service (06) | DRG 101 ==
LOC: M ED 10:19 → EDBD 10:19 → M ED INP 16:51 → M PCU 18:21
PROVIDERS: ADMIT Hospitalist; ATTEND Hospitalist
PROC: B246ZZZ Ultrasonography of Right and Left Heart (ICD-10-PCS; 2024-09-30)
PROC: 0WB63ZX Excision of Neck, Percutaneous Approach, Diagnostic (ICD-10-PCS; principal; 2024-10-01 14:00)
DX: G40.909 Epilepsy, unspecified, not intractable, without status epilepticus (principal); R47.01 Aphasia; E87.1 Hypo-osmolality and hyponatremia; F10.188 Alcohol abuse with other alcohol-induced disorder; C49.9 Malignant neoplasm of connective and soft tissue, unspecified; D64.9 Anemia, unspecified; I10 Essential (primary) hypertension; R91.8 Other nonspecific abnormal finding of lung field; F03.90 Unspecified dementia, unspecified severity, without behavioral disturbance, psychotic disturbance, mood disturbance, and anxiety; R29.6 Repeated falls; F39 Unspecified mood [affective] disorder; E03.9 Hypothyroidism, unspecified; Z79.82 Long term (current) use of aspirin; Z79.890 Hormone replacement therapy; Z79.899 Other long term (current) drug therapy; Z88.8 Allergy status to other drugs, medicaments and biological substances; Z86.73 Personal history of transient ischemic attack (TIA), and cerebral infarction without residual deficits

== ENCOUNTER → 2024-10-22 | Outpatient (CLI) | payer MEDICARE, BC ==
[~2024-10-22] MED LIST changes: +AMLO1TAB24 PO; +ECOT81TA5 PO; +NALT50TA4 PO; +PERF3DRO
[2024-10-22 18:52] LABS: BASO # 0.1 10^3/uL (0.0-0.2); EOS # 0.3 10^3/uL (0.0-0.5); EOS % 5.7 % (0.0-3.0); HEMATOCRIT 36.5 % (36.0-47.0); HEMOGLOBIN 12.1 g/dl (12.0-15.5); LYMPH # 1.8 10^3/uL (1.5-5.0); LYMPH % 29.7 % (24.0-44.0); MEAN CORPUSCULAR HEMOGLOBIN 32.2 pg (27.0-33.0); MEAN CORPUSCULAR HGB CONC 33.2 g/dl (32.0-36.5); MEAN CORPUSCULAR VOLUME 97.1 fl (80.0-96.0); MONO # 0.6 10^3/uL (0.0-0.8); MONO % 9.7 % (2.0-8.0); NEUTROPHILS # 3.2 10^3/uL (1.5-8.5); NEUTROPHILS % 53.7 % (36.0-66.0); PLATELET COUNT, AUTOMATED 259 10^3/uL (150-450); RED BLOOD COUNT 3.76 10^6/uL (4.00-5.40)
[2024-10-22 19:16] LABS: ALKALINE PHOSPHATASE 86 U/L (35-104); ALT/SGPT 41 U/L (7.0-40); AST/SGOT 35 U/L (<34); BILIRUBIN,TOTAL 0.3 MG/DL (0.3-1.2); BLOOD UREA NITROGEN 16 MG/DL (9-23); CALCIUM LEVEL 9.9 MG/DL (8.3-10.6); CARBON DIOXIDE LEVEL 29 MMOL/L (20-31); CHLORIDE LEVEL 104 MMOL/L (98-107); CREATININE FOR GFR 0.74 MG/DL (0.55-1.30); GLOMERULAR FILTRATION RATE > 60.0 (>39); GLUCOSE, FASTING 91 MG/DL (74-106); POTASSIUM SERUM 4.3 MMOL/L (3.5-5.1); SODIUM LEVEL 138 MMOL/L (136-145); TOTAL PROTEIN 7.7 G/DL (5.7-8.2)
== END ==
LOC: M PLALAB 15:43
PROVIDERS: ATTEND Physician Assistant Medical
DX: E78.1 Pure hyperglyceridemia (principal); I10 Essential (primary) hypertension

== ENCOUNTER → 2024-12-25 | Outpatient (CLI) | payer MEDICARE, BC ==
[2024-12-25 14:31] LABS: BASO % 0.6 % (0.0-1.0); EOS # 0.1 10^3/uL (0.0-0.5); EOS % 0.9 % (0.0-3.0); HEMATOCRIT 34.9 % (36.0-47.0); HEMOGLOBIN 11.9 g/dl (12.0-15.5); LYMPH # 1.5 10^3/uL (1.5-5.0); LYMPH % 28.8 % (24.0-44.0); MEAN CORPUSCULAR HEMOGLOBIN 32.5 pg (27.0-33.0); MEAN CORPUSCULAR HGB CONC 34.1 g/dl (32.0-36.5); MEAN CORPUSCULAR VOLUME 95.4 fl (80.0-96.0); MONO # 0.5 10^3/uL (0.0-0.8); MONO % 9.7 % (2.0-8.0); NEUTROPHILS # 3.2 10^3/uL (1.5-8.5); NEUTROPHILS % 59.8 % (36.0-66.0); PLATELET COUNT, AUTOMATED 225 10^3/uL (150-450); RED BLOOD COUNT 3.66 10^6/uL (4.00-5.40); WHITE BLOOD COUNT 5.3 10^3/uL (4.0-10.0)
[2024-12-25 14:36] LABS: CK-MB VALUE MASS 3.8 NG/ML (<3.6)
[2024-12-25 14:39] LABS: ALBUMIN 3.6 G/DL (3.2-5.2); ALKALINE PHOSPHATASE 88 U/L (35-104); ALT/SGPT 54 U/L (7.0-40); AST/SGOT 40 U/L (<34); BILIRUBIN,TOTAL 0.4 MG/DL (0.3-1.2); BLOOD UREA NITROGEN 13 MG/DL (9-23); CALCIUM LEVEL 9.1 MG/DL (8.3-10.6); CARBON DIOXIDE LEVEL 30 MMOL/L (20-31); CHLORIDE LEVEL 105 MMOL/L (98-107); CHOLESTEROL LEVEL 184 MG/DL (<200); CHOLESTEROL RISK RATIO 2.24 (<5); CREATININE FOR GFR 0.66 MG/DL (0.55-1.30); GLOMERULAR FILTRATION RATE > 60.0 (>39); GLUCOSE, FASTING 88 MG/DL (74-106); LDL CHOLESTEROL 90.4 MG/DL (<100); POTASSIUM SERUM 4.4 MMOL/L (3.5-5.1); SODIUM LEVEL 141 MMOL/L (136-145); TRIGLYCERIDES LEVEL 58 MG/DL (<150)
[2024-12-25 14:40] LABS: FREE T4 1.47 NG/DL (0.89-1.76)
[2024-12-25 14:42] LABS: THYROID STIMULATING HORMONE 0.141 uIU/ML (0.55-4.78)
[2024-12-25 14:43] LABS: CPK CREATINE PHOSPHOKINASE 167 U/L (34-145); MB/CK RELATIVE INDEX 2.27 (< OR =4)
[2024-12-25 15:16] LABS: HEMOGLOBIN A1c 5.4 % (4.0-6.0)
== END ==
LOC: M PLALAB 11:12
PROVIDERS: ATTEND Physician Assistant Medical
DX: G93.40 Encephalopathy, unspecified (principal); R79.89 Other specified abnormal findings of blood chemistry; E78.2 Mixed hyperlipidemia; F10.90 Alcohol use, unspecified, uncomplicated; I10 Essential (primary) hypertension; E87.1 Hypo-osmolality and hyponatremia; E03.9 Hypothyroidism, unspecified; F41.1 Generalized anxiety disorder

== ENCOUNTER → 2025-02-09 | Outpatient (CLI) | payer MEDICARE, BC | LOC: M WHC 14:24 | PROVIDERS: ATTEND Nurse Practitioner Family | DX: M85.89 Other specified disorders of bone density and structure, multiple sites (principal) ==

== ENCOUNTER → 2025-02-09 | Outpatient (CLI) | payer MEDICARE, BC | LOC: M WHC 14:24 | PROVIDERS: ATTEND Nurse Practitioner Family | DX: Z12.31 Encounter for screening mammogram for malignant neoplasm of breast (principal); R92.323 Mammographic fibroglandular density, bilateral breasts; M81.0 Age-related osteoporosis without current pathological fracture ==

== ENCOUNTER → 2025-03-16 | Outpatient (CLI) | payer MEDICARE, BC ==
[2025-03-16 12:22] LABS: FREE T4 1.43 NG/DL (0.89-1.76); THYROID STIMULATING HORMONE 0.21 uIU/ML (0.55-4.78)
== END ==
LOC: M PLALAB 10:37 → M LAB 10:37
PROVIDERS: ATTEND Physician Assistant Medical
DX: G03.9 Meningitis, unspecified (principal); G93.40 Encephalopathy, unspecified

== ENCOUNTER → 2025-04-06 | Outpatient (CLI) | payer MEDICARE, BC ==
[~2025-04-06] MED LIST changes: +ISOVUE-370 76% 100ML VIAL As Ordered ONE
== END ==
LOC: M RAD 11:52
PROVIDERS: ATTEND Internal Medicine Medical Oncology
DX: C34.90 Malignant neoplasm of unspecified part of unspecified bronchus or lung (principal)
CPT/HCPCS: 71260; Q9967

== ENCOUNTER → 2025-05-28 | Outpatient (CLI) | payer MEDICARE, BC ==
[~2025-05-28] MED LIST changes: -DEPA250T32 PO; +DIVA-65 PO; -ISOVUE-370 76% 100ML VIAL As Ordered ONE
[2025-05-28 14:11] LABS: CPK CREATINE PHOSPHOKINASE 131.0 U/L (34-145)
[2025-05-28 14:12] LABS: ALT/SGPT 33.0 U/L (7.0-40); AST/SGOT 31.0 U/L (<34); CALCIUM LEVEL 9.2 MG/DL (8.3-10.6); CARBON DIOXIDE LEVEL 31.0 MMOL/L (20-31); CHLORIDE LEVEL 100.0 MMOL/L (98-107); CREATININE FOR GFR 0.66 MG/DL (0.55-1.30); FREE T4 1.14 NG/DL (0.89-1.76); GLOMERULAR FILTRATION RATE 89.7 (>39); POTASSIUM SERUM 4.8 MMOL/L (3.5-5.1); SODIUM LEVEL 138.0 MMOL/L (136-145)
== END ==
LOC: M PLALAB 10:07
PROVIDERS: ATTEND Physician Assistant Medical
DX: E78.2 Mixed hyperlipidemia (principal); I10 Essential (primary) hypertension; E87.1 Hypo-osmolality and hyponatremia; K70.9 Alcoholic liver disease, unspecified; E03.9 Hypothyroidism, unspecified

== ENCOUNTER 2025-10-08 13:29 | Inpatient (IN) | payer MEDICARE, BC ==
[~2025-10-08] VITALS: Ht 167.6 cm; Wt 52.4 kg
[2025-10-08] VITALS (14 sets, daily range): BP systolic 124–176; BP diastolic 57–76; TEMP 96.9–97.1; O2SAT 96–100
[~2025-10-08 13:29] MED LIST changes: -AMLO2.5T3 PO; -DESV25TA PO; -LEVO75TA4 PO
[2025-10-08 14:17] LABS: BASO # 0.0 10^3/uL (0.0-0.2); BASO % 0.6 % (0.0-1.0); EOS # 0.2 10^3/uL (0.0-0.5); EOS % 2.5 % (0.0-3.0); LYMPH # 1.8 10^3/uL (1.5-5.0); LYMPH % 27.6 % (24.0-44.0); MONO # 0.6 10^3/uL (0.0-0.8); MONO % 9.6 % (2.0-8.0); NEUTROPHILS # 3.9 10^3/uL (1.5-8.5); NEUTROPHILS % 59.5 % (36.0-66.0); PLATELET COUNT, AUTOMATED 297 10^3/uL (150-450)
[2025-10-08] MEDS: TETANUS/DIPHTH/ACEL. PERTUSSIS 0.5 ML SYR IM.IMMUN ONE (14:20)
[2025-10-08] MEDS ORDERED: ISOVUE-370 76% 100 ML VIAL As Ordered ONE (14:25)
[2025-10-08 14:47] LABS: INR 0.88
[2025-10-08 14:54] LABS: CK-MB VALUE MASS 11.3 NG/ML (<3.6)
[2025-10-08 14:56] LABS: ALT/SGPT 33 U/L (7.0-40); AST/SGOT 51 U/L (<34); CALCIUM LEVEL 9.0 MG/DL (8.3-10.6); CARBON DIOXIDE LEVEL 27 MMOL/L (20-31); CHLORIDE LEVEL 99 MMOL/L (98-107); CREATININE FOR GFR 0.62 MG/DL (0.55-1.30); GLOMERULAR FILTRATION RATE > 90.0 (>39); POTASSIUM SERUM 4.2 MMOL/L (3.5-5.1); SODIUM LEVEL 135 MMOL/L (136-145)
[2025-10-08 15:01] LABS: CPK CREATINE PHOSPHOKINASE 394 U/L (34-145); MB/CK RELATIVE INDEX 2.86 (< OR =4)
[2025-10-08] MEDS ORDERED: LEVO75TA4 PO (15:37)
[2025-10-08] MEDS ORDERED: AMLO2.5T3 PO (15:37)
[2025-10-08] MEDS ORDERED: DESV25TA PO (15:37)
[2025-10-08] MEDS ORDERED: HOME MED LIST COMPLETE! XX SCH (15:40)
[2025-10-08] MEDS: PANTOPRAZOLE 40MG VIAL IV SCH (18:00)
[2025-10-08] MEDS: LACOSAMIDE 50 MG TAB PO SCH (21:52)
[2025-10-08] MEDS: niCARdipine IV 40 MG in IV 1 EA IV SCH (21:54)
[2025-10-09] VITALS (47 sets, daily range): BP systolic 125–171; BP diastolic 58–95; TEMP 97–98.1; O2SAT 96–100
[2025-10-09] MEDS ORDERED: ACETAMINOPHEN 325 MG TAB PO PRN (09:15)
[2025-10-09] MEDS: LEVOTHYROXINE 75 MCG TABLET (0.075 MG) PO SCH (11:30)
[2025-10-09] MEDS: METOPROLOL TART 50 MG TAB PO SCH (11:40)
[2025-10-09] MEDS: ESCITALOPRAM OXALATE 10 MG TABLET PO SCH (11:40)
[2025-10-09] MEDS: ATORVASTATIN 20 MG TAB PO SCH (21:08)
[2025-10-09] MEDS: ALPRAZolam 0.5 MG TAB PO SCH (21:09)
[2025-10-10] VITALS (7 sets, daily range): BP systolic 127–155; BP diastolic 59–77; TEMP 97–98.2; O2SAT 96–99
[2025-10-10] MEDS: HEPARIN SOD 5000 UNITS/ML 1 ML VIAL/SYRINGE SQ SCH (10:19)
[2025-10-12 16:17] LABS: T P ELECTROPHORESIS SO 6.8 g/dL (6.1-8.1)
== END 2025-10-10 14:35 | disposition home or self-care (01) | DRG 86 ==
LOC: M ED 13:29 → M ED INP 17:38 → M ICU 18:36
PROVIDERS: ADMIT Internal Medicine Pulmonary Disease; ATTEND Internal Medicine Pulmonary Disease
DX: S06.6X0A Traumatic subarachnoid hemorrhage without loss of consciousness, initial encounter (principal); R47.01 Aphasia; E87.1 Hypo-osmolality and hyponatremia; S06.5X0A Traumatic subdural hemorrhage without loss of consciousness, initial encounter; I10 Essential (primary) hypertension; G40.909 Epilepsy, unspecified, not intractable, without status epilepticus; Z86.73 Personal history of transient ischemic attack (TIA), and cerebral infarction without residual deficits; F39 Unspecified mood [affective] disorder; E03.9 Hypothyroidism, unspecified; Z98.41 Cataract extraction status, right eye; Z90.79 Acquired absence of other genital organ(s); Z87.891 Personal history of nicotine dependence; W19.XXXA Unspecified fall, initial encounter; Y92.9 Unspecified place or not applicable; Y93.9 Activity, unspecified; Z79.82 Long term (current) use of aspirin; Z79.890 Hormone replacement therapy; Z79.899 Other long term (current) drug therapy; Z88.8 Allergy status to other drugs, medicaments and biological substances

== ENCOUNTER → 2025-10-08 | Outpatient (CLI) | payer MEDICARE, BC ==
[~2025-10-08] MED LIST changes: +AMLO2.5T3 PO; +CAPT125TA PO; -CAPT31TA PO; +DESV25TA PO; -LACO100T PO; +LACO100T11 PO; +LEVO75TA4 PO; -PERF3DRO; +PERF3DRO OU
[2025-10-08 15:39] LABS: BASO # 0.0 10^3/uL (0.0-0.2); BASO % 0.6 % (0.0-1.0); EOS # 0.1 10^3/uL (0.0-0.5); EOS % 2.2 % (0.0-3.0); LYMPH # 1.6 10^3/uL (1.5-5.0); LYMPH % 25.5 % (24.0-44.0); MONO # 0.6 10^3/uL (0.0-0.8); MONO % 10.0 % (2.0-8.0); NEUTROPHILS # 4.0 10^3/uL (1.5-8.5); NEUTROPHILS % 61.5 % (36.0-66.0); PLATELET COUNT, AUTOMATED 269 10^3/uL (150-450)
[2025-10-08 15:47] LABS: ALT/SGPT 29 U/L (7.0-40); AST/SGOT 47 U/L (<34); CALCIUM LEVEL 9.0 MG/DL (8.3-10.6); CARBON DIOXIDE LEVEL 30 MMOL/L (20-31); CHLORIDE LEVEL 97 MMOL/L (98-107); CREATININE FOR GFR 0.63 MG/DL (0.55-1.30); GLOMERULAR FILTRATION RATE > 90.0 (>39); IRON (FE) 43 UG/DL (50-170); POTASSIUM SERUM 4.8 MMOL/L (3.5-5.1); SODIUM LEVEL 135 MMOL/L (136-145)
== END ==
LOC: M PLAIMG 12:20
PROVIDERS: ATTEND Physician Assistant Medical
DX: R22.0 Localized swelling, mass and lump, head (principal); G93.89 Other specified disorders of brain; R47.02 Dysphasia; S00.03XA Contusion of scalp, initial encounter; I69.398 Other sequelae of cerebral infarction; I62.03 Nontraumatic chronic subdural hemorrhage; G31.9 Degenerative disease of nervous system, unspecified; W19.XXXA Unspecified fall, initial encounter; Y92.009 Unspecified place in unspecified non-institutional (private) residence as the place of occurrence of the external cause; Y93.9 Activity, unspecified; Y99.9 Unspecified external cause status

== ENCOUNTER 2025-10-14 19:01 | Inpatient (IN) | payer MEDICARE, BC ==
[~2025-10-14] VITALS: Ht 167.6 cm; Wt 52.8 kg
[~2025-10-14 19:01] MED LIST changes: +AMLO2.5T3 PO; +DESV25TA PO; +LEVO75TA4 PO
[2025-10-14] MEDS ORDERED: ISOVUE-370 76% 100 ML VIAL As Ordered ONE (19:22)
[2025-10-14 19:38] LABS: BASO # 0.1 10^3/uL (0.0-0.2); BASO % 0.6 % (0.0-1.0); EOS # 0.3 10^3/uL (0.0-0.5); EOS % 3.0 % (0.0-3.0); LYMPH # 1.6 10^3/uL (1.5-5.0); LYMPH % 15.9 % (24.0-44.0); MONO # 0.9 10^3/uL (0.0-0.8); MONO % 9.0 % (2.0-8.0); NEUTROPHILS # 7.0 10^3/uL (1.5-8.5); NEUTROPHILS % 71.2 % (36.0-66.0); PLATELET COUNT, AUTOMATED 322 10^3/uL (150-450)
[2025-10-14] MEDS: LACOSAMIDE 10 MG/ML 20 ML VIAL IV STA ×2 (19:50→22:27)
[2025-10-14 19:51] LABS: CREATININE FOR GFR 0.76 MG/DL (0.55-1.30); GLOMERULAR FILTRATION RATE 80.2 (>39)
[2025-10-14 20:03] LABS: INR 0.82
[2025-10-14 20:45] LABS: ETHYL ALCOHOL (ETHANOL) < 0.003 % (0.000-0.010)
[2025-10-14] MEDS ORDERED: HOME MED LIST COMPLETE! XX SCH (21:05)
[2025-10-14 23:53] VITALS: BP 175/84; TEMP 97.3; O2SAT 98
[2025-10-15] VITALS (16 sets, daily range): BP systolic 128–170; BP diastolic 59–81; TEMP 97.3–98; O2SAT 96–100
[2025-10-15 00:41] LABS: ALT/SGPT 25 U/L (7.0-40); AST/SGOT 31 U/L (<34); CALCIUM LEVEL 8.6 MG/DL (8.3-10.6); CARBON DIOXIDE LEVEL 27 MMOL/L (20-31); CHLORIDE LEVEL 103 MMOL/L (98-107); CREATININE FOR GFR 0.64 MG/DL (0.55-1.30); GLOMERULAR FILTRATION RATE > 90.0 (>39); POTASSIUM SERUM 4.5 MMOL/L (3.5-5.1); SODIUM LEVEL 139 MMOL/L (136-145)
[2025-10-15 04:35] LABS: BASO # 0.0 10^3/uL (0.0-0.2); BASO % 0.7 % (0.0-1.0); EOS # 0.2 10^3/uL (0.0-0.5); EOS % 3.0 % (0.0-3.0); LYMPH # 1.1 10^3/uL (1.5-5.0); LYMPH % 18.9 % (24.0-44.0); MONO # 0.4 10^3/uL (0.0-0.8); MONO % 6.7 % (2.0-8.0); NEUTROPHILS # 4.0 10^3/uL (1.5-8.5); NEUTROPHILS % 70.5 % (36.0-66.0); PLATELET COUNT, AUTOMATED 306 10^3/uL (150-450)
[2025-10-15 04:54] LABS: ESTIMATED AVERAGE GLUCOSE 108.0 MG/DL (60-110)
[2025-10-15 05:02] LABS: CHOLESTEROL LEVEL 197.0 MG/DL (<200); CHOLESTEROL RISK RATIO 2.11 (<5); LDL CHOLESTEROL 93.8 MG/DL (<100); NON-HDL-C 103.8 MG/DL; TRIGLYCERIDES LEVEL 50.0 MG/DL (<150)
[2025-10-15 05:03] LABS: ALT/SGPT 25 U/L (7.0-40); AST/SGOT 30 U/L (<34); CALCIUM LEVEL 8.4 MG/DL (8.3-10.6); CARBON DIOXIDE LEVEL 27 MMOL/L (20-31); CHLORIDE LEVEL 103 MMOL/L (98-107); CREATININE FOR GFR 0.55 MG/DL (0.55-1.30); GLOMERULAR FILTRATION RATE > 90.0 (>39); POTASSIUM SERUM 4.0 MMOL/L (3.5-5.1); SODIUM LEVEL 139 MMOL/L (136-145)
[2025-10-15] MEDS: LACOSAMIDE 10 MG/ML 20 ML VIAL IV SCH (09:39)
[2025-10-15 10:08] LABS: FREE T4 0.85 NG/DL (0.89-1.76)
[2025-10-15 10:41] LABS: KETONE, URINE AUTO RFX NEGATIVE (NEGATIVE); LEUKOCYTE ESTERASE UR AUTO RFX NEGATIVE (NEGATIVE); MUCUS, URINE RFX SMALL (NEGATIVE); NITRITE, URINE AUTO RFX NEGATIVE (NEGATIVE); RBC, URINE AUTO RFX 0 /HPF (0-3); SQUAM EPITHELIAL CELL UR AURFX 1 /HPF (0-6); WBC, URINE AUTO RFX 1 /HPF (0-3)
[2025-10-15] MEDS: ESCITALOPRAM OXALATE 10 MG TABLET PO SCH (12:42)
[2025-10-15] MEDS: METOPROLOL TART 50 MG TAB PO SCH (14:03)
[2025-10-16] VITALS: BP_SYST 12; BP_SYST 129; BP_DIAS 58; TEMP 97.6; O2SAT 97
[2025-10-16 03:56] LABS: BASO # 0.0 10^3/uL (0.0-0.2); BASO % 0.6 % (0.0-1.0); EOS # 0.3 10^3/uL (0.0-0.5); EOS % 3.5 % (0.0-3.0); LYMPH # 1.4 10^3/uL (1.5-5.0); LYMPH % 19.1 % (24.0-44.0); MONO # 0.5 10^3/uL (0.0-0.8); MONO % 7.4 % (2.0-8.0); NEUTROPHILS # 5.0 10^3/uL (1.5-8.5); NEUTROPHILS % 69.3 % (36.0-66.0); PLATELET COUNT, AUTOMATED 347 10^3/uL (150-450)
[2025-10-16 04:00] VITALS: BP 144/67; TEMP 97.8; O2SAT 96
[2025-10-16 04:19] LABS: ALT/SGPT 19 U/L (7.0-40); AST/SGOT 26 U/L (<34); CALCIUM LEVEL 9.0 MG/DL (8.3-10.6); CARBON DIOXIDE LEVEL 26 MMOL/L (20-31); CHLORIDE LEVEL 103 MMOL/L (98-107); CREATININE FOR GFR 0.65 MG/DL (0.55-1.30); GLOMERULAR FILTRATION RATE > 90.0 (>39); POTASSIUM SERUM 4.3 MMOL/L (3.5-5.1); SODIUM LEVEL 138 MMOL/L (136-145)
[2025-10-16] MEDS: LEVOTHYROXINE 75 MCG TABLET (0.075 MG) PO SCH (05:14)
[2025-10-16 08:00] VITALS: BP 123/56; TEMP 97.3; O2SAT 99
[2025-10-16] MEDS: ATORVASTATIN 20 MG TAB PO SCH (10:11)
[2025-10-16 10:12] VITALS: BP 123/56
[2025-10-16 12:00] VITALS: BP 150/70; TEMP 97.6
[2025-10-16] MEDS ORDERED: VIMP150T PO ×2 (13:50→14:12)
== END 2025-10-16 15:35 | disposition home health service (06) | DRG 100 ==
LOC: M ED 19:01 → M ED INP 22:48 → M ICU 23:23
PROVIDERS: ADMIT Internal Medicine; ATTEND Internal Medicine
DX: G40.909 Epilepsy, unspecified, not intractable, without status epilepticus (principal); G93.41 Metabolic encephalopathy; R47.01 Aphasia; I10 Essential (primary) hypertension; R29.6 Repeated falls; R13.10 Dysphagia, unspecified; F39 Unspecified mood [affective] disorder; E03.9 Hypothyroidism, unspecified; D64.9 Anemia, unspecified; R33.9 Retention of urine, unspecified; F41.9 Anxiety disorder, unspecified; E78.5 Hyperlipidemia, unspecified; Z98.49 Cataract extraction status, unspecified eye; Z90.79 Acquired absence of other genital organ(s); Z87.891 Personal history of nicotine dependence; Z79.890 Hormone replacement therapy; Z79.899 Other long term (current) drug therapy; Z88.8 Allergy status to other drugs, medicaments and biological substances; Z86.73 Personal history of transient ischemic attack (TIA), and cerebral infarction without residual deficits